=== PATIENT | male | born 1945 | race Caucasian/White ===

== ENCOUNTER 2016-08-04 15:23 | Emergency (ER) | payer MEDICARE ==
[~2016-08-04] VITALS: Ht 177.8 cm; Wt 90.0 kg
[~2016-08-04 15:23] MED LIST: ALBUAER3 INH; AMLO10TA2 PO; HYDR4TAB PO; LEVO100T5 PO; LISI10TA3 PO; OMEP20TA PO; SYMB80AE INH
[2016-08-04 15:28] VITALS: BP 218/91; PULSE 75; RESP 18; TEMP 98.3; O2SAT 100
[2016-08-04 15:30] VITALS: BP 218/91; PULSE 75; RESP 18; O2SAT 100
[2016-08-04] MEDS ORDERED: SODIUM CHLORIDE 0.9% FLUSH 5 ML FLUSH IVF PRN (15:45)
--- NOTE | 2016-08-04 15:52 | PD ---
HPI Chief Complaint: Chest Pain Time Seen by Provider: 15:31 Travel History International Travel<30 days: No Contact w/Intl Traveler<30days: No Traveled to known affect area: No History of Present Illness HPI This is a 70-year-old gentleman with history of coronary artery disease, prostate cancer, hyperlipidemia, who presents today with complaints of 2 day history of constant chest pain. The patient reports the pain as sharp and stabbing in his mid substernal area and upper abdominal area. He denies any nausea, vomiting, diaphoresis. Patient did state that he thought he had some discomfort in his left arm as well. Patient also reports that he had black stool earlier today. He denies any history of previous black stool. He does state that he had a peptic ulcer 30 years ago. Time he was unsure whether or not he had bleeding associated with it. There are no other complaints at the time of my examination. PFSH Past Medical History Hx Anticoagulant Therapy: Yes Arthritis: No Asthma: Yes Blood Disorders: No Anxiety: Yes Depression: No Heart Rhythm Problems: No Cancer: Yes (SKIN, PROSTATE AND BONE) Cardiac Catheterization: Yes Cardiovascular Problems: Yes High Cholesterol: Yes Chemotherapy: Yes Chest Pain: Yes Congestive Heart Failure: No COPD: No Cerebrovascular Accident: No Coronary Artery Disease: Yes Diabetes: No Diminished Hearing: No Endocrine: Yes Gastrointestinal Disorders: Yes GERD: Yes Genitourinary: No Headaches: Yes Hepatitis: No Hiatal Hernia: No Heparin Induced Thrombocytopen: No Hypertension: Yes Immune Disorder: No Implanted Vascular Access Dvce: No Musculoskeletal: Yes Neurologic: No Psychiatric: No Reproductive: No Respiratory: Yes Immunizations Current: Yes Myocardial Infarction: No Radiation Therapy: No Seizures: No Sickle Cell Disease: No Sleep Apnea: No Thyroid Disease: Yes Ulcer: Yes ?: Not Past Surgical History Abdominal Surgery: Yes (STENT - ABDOMEN 2013) AICD: No Cardiac Surgery: No (RT ENDARTERECTOMY 2005, cabg) Coronary Artery Bypass Graft: Yes ( X 4 2002 ) Ear Surgery: No Endocrine Surgery: No Eye Surgery: No Genitourinary Surgery: No Joint Replacement: No Neurologic Surgery: No Oral Surgery: No Pacemaker: No Thoracic Surgery: No Other Surgery: Yes (SPLEENECTOMY) Family History Family Myocardial Infarction: Yes (FATHER) Social History Alcohol Use: Yes (OCC BEER) Tobacco Use: No (QUIT 1989) Substance Use: No Allergies-Medications (Allergen,Severity, Reaction): Coded Allergies: Lipitor (Verified Allergy, Severe, rash, 05/17/16) Sulfa (Verified Allergy, Severe, Rash, 05/17/16) HIVES Aspirin (Verified Allergy, Unknown, 08/04/16) Prednisone (Verified Allergy, Unknown, 08/04/16) CRESTOR (Verified Adverse Reaction, Severe, 05/17/16) ABDOMINAL PAIN/MUSCLE ACHES Uncoded Allergies: IRENE (Adverse Reaction, Unknown, Swelling, 05/02/15) Pivastatin Cholesterol med - swelling in legs Reported Meds & Prescriptions Reported Meds & Active Scripts Active Reported Xtandi (Enzalutamide) 40 Mg Cap 40 Mg PO QID Prochlorperazine Maleate 10 Mg Tab 10 Mg PO Q6H PRN Zofran (Ondansetron HCl) 8 Mg Tab 8 Mg PO TID PRN Lasix (Furosemide) 20 Mg Tab 20 Mg PO DAILY PRN Symbicort Inh (Budesonide/Formoterol Fumarate) 160-4.5 Mcg/Act Aero 1 Puff INH Q12HR Amlodipine (Amlodipine Besylate) 5 Mg Tab 5 Mg PO DAILY Hydromorphone (Hydromorphone HCl) 4 Mg Tab 4-8 Mg PO Q3HR PRN Lisinopril 10 Mg Tab 10 Mg PO BID Omeprazole 20 Mg Tab 20 Mg PO DAILY PRN Levothyroxine (Levothyroxine Sodium) 100 Mcg Tab 100 Mcg PO DAILY Proair Hfa 8.5 GM Inh (Albuterol Sulfate) 90 Mcg/Act Aer 1 Puff INH Q4H PRN 108 mcg/actuation Review of Systems Except as stated in HPI: all other systems reviewed are Neg General / Constitutional: No: Fever, Chills HENT: No: Headaches, Lightheadedness Cardiovascular: Positive: Chest Pain or Discomfort (substernal 2 days), No: Palpitations, Irregular Rhythm Respiratory: No: Cough, Shortness of Breath Gastrointestinal: Positive: Abdominal Pain (epigastric), No: Nausea, Vomiting Musculoskeletal: Positive: Pain (anus left arm earlier.) Neurologic: No: Weakness, Headache Physical Exam Narrative GENERAL: Well-nourished, well-developed patient, in no acute respiratory distress. SKIN: Warm and dry. HEAD: Normocephalic/atraumatic. EYES: No scleral icterus. No injection or drainage. NECK: Supple, trachea midline. No JVD or lymphadenopathy. CARDIOVASCULAR: Regular rate and rhythm without murmurs, gallops, or rubs. RESPIRATORY: Breath sounds equal bilaterally. No accessory muscle use. GASTROINTESTINAL: Abdomen soft, non-tender, nondistended. She has no reproducible epigastric pain MUSCULOSKELETAL: No cyanosis, or edema. NEUROLOGICAL: Awake and alert. Cranial nerves II through XII intact. Motor grossly within normal limits. Five out of 5 muscle strength in all muscle groups. Normal speech. Data Data Last Documented VS Vital Signs Date Time Temp Pulse Resp B/P Pulse Ox O2 Delivery O2 Flow Rate FiO2 08/04/16 17:32 77 18 186/83 97 Room Air 08/04/16 15:28 98.3 Orders Electrocardiogram (08/04/16 15:44) Basic Metabolic Panel (Bmp) (08/04/16 15:44) Ckmb (Isoenzyme) Profile (08/04/16 15:44) Complete Blood Count With Diff (08/04/16 15:44) Magnesium (Mg) (08/04/16 15:44) Prothrombin Time / Inr (Pt) (08/04/16 15:44) Act Partial Throm Time (Ptt) (08/04/16 15:44) Troponin I (08/04/16 15:44) Chest, Single Ap (08/04/16 15:44) Ecg Monitoring (08/04/16 15:44) Bilateral Bp Monitoring (08/04/16 15:44) Iv Access Insert/Monitor (08/04/16 15:44) Oximetry (08/04/16 15:44) Oxygen Administration (08/04/16 15:44) Sodium Chloride 0.9% Flush (Ns Flush) (08/04/16 15:45) Al-Mag Hy-Si 40-40-4 Mg/Ml Liq (Mag-Al P (08/04/16 16:00) Lidocaine 2% Viscous (Xylocaine 2% Visco (08/04/16 16:00) Lipase (08/04/16 15:52) Morphine Inj (Morphine Inj) (08/04/16 17:30) Ondansetron Inj (Zofran Inj) (08/04/16 17:30) Diatrizoate Liq ( Gastroview Liq) (08/04/16 17:24) Oral Contrast - Adult (08/04/16 17:26) Amlodipine (Norvasc) (08/04/16 18:00) Lisinopril (Prinivil) (08/04/16 18:00) Ct Abd/Pel W Iv Contrast(Rout) (08/04/16 18:51) Iohexol 350 Inj (Omnipaque 350 Inj) (08/04/16 18:56) Labs Laboratory Tests Test 08/04/16 15:50 White Blood Count 8.7 TH/MM3 Red Blood Count 3.98 MIL/MM3 Hemoglobin 12.7 GM/DL Hematocrit 37.7 % Mean Corpuscular Volume 94.7 FL Mean Corpuscular Hemoglobin 31.9 PG Mean Corpuscular Hemoglobin 33.7 % Concent Red Cell Distribution Width 15.0 % Platelet Count 406 TH/MM3 Mean Platelet Volume 8.9 FL Neutrophils (%) (Auto) 53.0 % Lymphocytes (%) (Auto) 24.9 % Monocytes (%) (Auto) 14.2 % Eosinophils (%) (Auto) 6.8 % Basophils (%) (Auto) 1.1 % Neutrophils # (Auto) 4.6 TH/MM3 Lymphocytes # (Auto) 2.2 TH/MM3 Monocytes # (Auto) 1.2 TH/MM3 Eosinophils # (Auto) 0.6 TH/MM3 Basophils # (Auto) 0.1 TH/MM3 CBC Comment DIFF FINAL Differential Comment Prothrombin Time 10.4 SEC Prothromb Time International 0.9 RATIO Ratio Activated Partial 28.0 SEC Thromboplast Time Sodium Level 137 MEQ/L Potassium Level 3.8 MEQ/L Chloride Level 102 MEQ/L Carbon Dioxide Level 24.4 MEQ/L Anion Gap 11 MEQ/L Blood Urea Nitrogen 16 MG/DL Creatinine 1.09 MG/DL Estimat Glomerular Filtration 67 ML/MIN Rate Random Glucose 148 MG/DL Calcium Level 8.5 MG/DL Magnesium Level 2.0 MG/DL Total Creatine Kinase 77 U/L Troponin I LESS THAN 0.02 NG/ML Lipase 136 U/L MDM Medical Decision Making Medical Screen Exam Complete: Yes Emergency Medical Condition: Yes Medical Record Reviewed: Yes Differential Diagnosis ACS versus peptic ulcer versus pancreatitis Narrative Course 70-year-old gentleman with a history of 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 The patient denies any waxing waning. He reports the pain is constant. EKG and cardiac enzymes are within normal limits. Lipase is within normal limits. A CT scan was ordered given his history of prostate cancer to rule out any acute intra- abdominal pathology. CT scan is pending at this time. He will be signed out to Dr. Yesenia Dwyer, physician replacing this physician and disposition will be per her pending the CT report. I discussed this with both the patient and his and they're amenable to the plan and will wait the results of the CT scan from Dr. Dwyer. Diagnosis Primary Impression: Atypical chest pain Additional Impressions: Epigastric abdominal pain History of prostate cancer History of coronary artery disease Zachary Resendiz MD Aug 04, 2016 15:52
[2016-08-04] MEDS ORDERED: LIDOCAINE VISCOUS 2% SOLN 15 ML UDC SWISH-SWAL ONE (16:00)
[2016-08-04] MEDS ORDERED: ALUMINUM/MAGNESIUM/SIMETH 30 ML CUP PO ONE (16:00)
[2016-08-04] MEDS ORDERED: FURO1TAB62 PO (16:09)
[2016-08-04] MEDS ORDERED: PROC10TA PO (16:09)
[2016-08-04] MEDS ORDERED: ZOFR8TAB PO (16:09)
[2016-08-04] MEDS ORDERED: ENZA40CA PO (16:09)
[2016-08-04] MEDS ORDERED: AMLO5TAB2 PO (16:09)
[2016-08-04] MEDS ORDERED: SYMB160A INH (16:09)
[2016-08-04 16:22] VITALS: RESP 18; O2SAT 99
[2016-08-04 16:24] LABS: AUTOMATED NEUTROPHIL # 4.6 TH/MM3 (1.8-7.7); BASOPHIL # 0.1 TH/MM3 (0-0.2); BASOPHIL % 1.1 % (0.0-2.0); EOSINOPHIL # 0.6 TH/MM3 (0-0.4); EOSINOPHIL % 6.8 % (0.0-4.0); HEMATOCRIT 37.7 % (39.0-51.0); HEMO FLAGS DIFF FINAL; LYMPH % 24.9 % (9.0-44.0); LYMPHOCYTE # 2.2 TH/MM3 (1.0-4.8); MEAN CELL VOLUME 94.7 FL (80.0-100.0); MEAN CORPUSCULAR HEMOGLOBIN 31.9 PG (27.0-34.0); MEAN CORPUSCULAR HGB CONC 33.7 % (32.0-36.0); MONO % 14.2 % (0.0-8.0); PLATELET COUNT 406 TH/MM3 (150-450); RED BLOOD COUNT 3.98 MIL/MM3 (4.50-5.90); WHITE BLOOD COUNT 8.7 TH/MM3 (4.0-11.0)
[2016-08-04 16:36] LABS: INTERNATIONAL NORMALIZED RATIO 0.9 RATIO; PROTHROMBIN TIME - PATIENT 10.4 SEC (9.8-11.6)
--- NOTE | 2016-08-04 16:49 | RADRPT ---
EXAM DATE/TIME: 08/04/2016 15:53 [facility] COMPARISON: CHEST SINGLE AP, May 02, 2015, 18:49. INDICATIONS : Chest pain. MEDICAL HISTORY : Carcinoma, bone. Carcinoma, prostatic. SURGICAL HISTORY : CABG. Infusaport. ENCOUNTER: Initial ACUITY: 2 days PAIN SCORE: 9/10 LOCATION: lower chest FINDINGS: Trace left base atelectasis seen. No pleural effusion. No pneumothorax. Heart size stable, within normal limits. Patient has had previous CABG. Don't see any median sternoto my wires. There is a right internal jugular [id number] catheter with tip in the right atrium. CONCLUSION: Trace left base atelectasis. No other acute cardiopulmonary disease demonstrated. Jose Schwartz MD on August 04, 2016 at 16:46 Board Certified Radiologist. This report was verified electronically.
[2016-08-04 17:03] LABS: ANION GAP 11 MEQ/L (5-15); BICARBONATE 24.4 MEQ/L (21.0-32.0); BLOOD UREA NITROGEN 16 MG/DL (7-18); CHLORIDE 102 MEQ/L (98-107); GLOMERULAR FILTRATION RATE 67 ML/MIN (>89); POTASSIUM 3.8 MEQ/L (3.5-5.1); SODIUM (NA) 137 MEQ/L (136-145)
[2016-08-04 17:14] LABS: CREATINE KINASE 77 U/L (39-308)
[2016-08-04] MEDS ORDERED: DIATRIZOATE MEGLUM/DIATRIZOATE SOD 9 ML CUP ONE (17:24)
[2016-08-04] MEDS ORDERED: ONDANSETRON HCL 4 MG/2 ML VIAL IVP ONE (17:30)
[2016-08-04] MEDS ORDERED: MORPHINE SULFATE 4 MG/ML INJ IV ONE (17:30)
[2016-08-04 17:32] VITALS: BP_SYST 186; BP_SYST 190; BP_DIAS 83; BP_DIAS 87; PULSE 77; PULSE 82; RESP 18; O2SAT 97
[2016-08-04] MEDS ORDERED: amLODIPine BESYLATE 5 MG TAB PO ONE (18:00)
[2016-08-04] MEDS ORDERED: LISINOPRIL 10 MG TAB PO ONE (18:00)
[2016-08-04] MEDS ORDERED: IOHEXOL 350 MG/ML 10 ML VIAL (for RAD DIAG) IV ONE (18:56)
--- NOTE | 2016-08-04 19:11 | RADRPT ---
EXAM DATE/TIME: 08/04/2016 18:51 [facility] COMPARISON: CT ABDOMEN W/O CONTRAST, May 02, 2015, 19:11. INDICATIONS : Epigastric pain today. IV CONTRAST: 82 cc Omnipaque 350 (iohexol) IV ORAL CONTRAST: Prescribed oral contrast ingested. RADIATION DOSE: 14.61 CTDIvol (mGy) MEDICAL HISTORY : Cardiovascular disease. Hypertension. Carcinoma, prostate.Bone cancer. SURGICAL HISTORY : None. ENCOUNTER: Initial ACUITY: 1 day PAIN SCALE: 5/10 LOCATION: chest Epigastric TECHNIQUE: Volumetric scanning of the abdomen and pelvis was performed. Using automated exposure control and ad justment of the mA and/or kV according to patient size, radiation dose was kept as low as reasonably achievable to obtain optimal diagnostic quality images. FINDINGS: LOWER LUNGS: The visualized lower lungs are clear. LIVER: Homogeneous density without lesion. There is no dilation of the biliary tree. No calcified gallston es. SPLEEN: Splenectomy with some minimal residual splenic tissue.. PANCREAS: Within normal limits. KIDNEYS: Normal in size and shape. There is no mass, stone or hydronephrosis. Small renal low densities. ADRENAL GLANDS: Within normal limits. VASCULAR: There is no aortic aneurysm. BOWEL/MESENTERY: The stomach, small bowel, and colon demonstrate no acute abnormality. There is no free intraperitone al air or fluid. ABDOMINAL WALL: Within normal limits. RETROPERITONEUM: There is no lymphadenopathy. BLADDER: No wall thickening or mass. REPRODUCTIVE: Within normal limits. INGUINAL: There is no lymphadenopathy or hernia On the right. Fat-containing left inguinal hernia. MUSCULOSKELETAL: Scattered bony sclerotic foci concerning for metastatic disease.. CONCLUSION: 1. Scattered bony sclerotic foci concerning for metastatic disease. 2. No calcified gallstones. 3. Splenectomy with minimal residual splenic tissue. 4. Bilateral renal low densities likely cysts. Manuel Aguirre MD on August 04, 2016 at 19:06 Board Certified Radiologist. This report was verified electronically.
--- NOTE | 2016-08-04 19:16 | PD ---
Physical Exam Date Seen by Provider: Aug 04, 2016 Time Seen by Provider: 19:14 Narrative Accepted in transfer of care from Dr. Resendiz GENERAL: Well-developed well-nourished male in no acute distress no respiratory distress SKIN: Warm and dry. HEAD: Normocephalic. EYES: No scleral icterus. No injection or drainage. NECK: Supple, trachea midline. No JVD or lymphadenopathy. CARDIOVASCULAR: Regular rate and rhythm without murmurs, gallops, or rubs. RESPIRATORY: Breath sounds equal bilaterally. No accessory muscle use. GASTROINTESTINAL: Abdomen soft, reproducible epigastric tenderness to palpation without guarding or rebound, nondistended. No palpable pulsatile mass. MUSCULOSKELETAL: No cyanosis, or edema. Bilateral radial and dorsalis pedis pulses 2+ to palpation BACK: Nontender without obvious deformity. No CVA tenderness. Data Data Last Documented VS Vital Signs Date Time Temp Pulse Resp B/P Pulse Ox O2 Delivery O2 Flow Rate FiO2 08/04/16 17:32 77 18 186/83 97 Room Air 08/04/16 15:28 98.3 Orders Electrocardiogram (08/04/16 15:44) Basic Metabolic Panel (Bmp) (08/04/16 15:44) Ckmb (Isoenzyme) Profile (08/04/16 15:44) Complete Blood Count With Diff (08/04/16 15:44) Magnesium (Mg) (08/04/16 15:44) Prothrombin Time / Inr (Pt) (08/04/16 15:44) Act Partial Throm Time (Ptt) (08/04/16 15:44) Troponin I (08/04/16 15:44) Chest, Single Ap (08/04/16 15:44) Ecg Monitoring (08/04/16 15:44) Bilateral Bp Monitoring (08/04/16 15:44) Iv Access Insert/Monitor (08/04/16 15:44) Oximetry (08/04/16 15:44) Oxygen Administration (08/04/16 15:44) Sodium Chloride 0.9% Flush (Ns Flush) (08/04/16 15:45) Al-Mag Hy-Si 40-40-4 Mg/Ml Liq (Mag-Al P (08/04/16 16:00) Lidocaine 2% Viscous (Xylocaine 2% Visco (08/04/16 16:00) Lipase (08/04/16 15:52) Morphine Inj (Morphine Inj) (08/04/16 17:30) Ondansetron Inj (Zofran Inj) (08/04/16 17:30) Diatrizoate Liq ( Gastroview Liq) (08/04/16 17:24) Oral Contrast - Adult (08/04/16 17:26) Amlodipine (Norvasc) (08/04/16 18:00) Lisinopril (Prinivil) (08/04/16 18:00) Ct Abd/Pel W Iv Contrast(Rout) (08/04/16 18:51) Iohexol 350 Inj (Omnipaque 350 Inj) (08/04/16 18:56) Sucralfate Liq (Carafate Liq) (08/04/16 19:45) Labs Laboratory Tests Test 08/04/16 15:50 White Blood Count 8.7 TH/MM3 Red Blood Count 3.98 MIL/MM3 Hemoglobin 12.7 GM/DL Hematocrit 37.7 % Mean Corpuscular Volume 94.7 FL Mean Corpuscular Hemoglobin 31.9 PG Mean Corpuscular Hemoglobin 33.7 % Concent Red Cell Distribution Width 15.0 % Platelet Count 406 TH/MM3 Mean Platelet Volume 8.9 FL Neutrophils (%) (Auto) 53.0 % Lymphocytes (%) (Auto) 24.9 % Monocytes (%) (Auto) 14.2 % Eosinophils (%) (Auto) 6.8 % Basophils (%) (Auto) 1.1 % Neutrophils # (Auto) 4.6 TH/MM3 Lymphocytes # (Auto) 2.2 TH/MM3 Monocytes # (Auto) 1.2 TH/MM3 Eosinophils # (Auto) 0.6 TH/MM3 Basophils # (Auto) 0.1 TH/MM3 CBC Comment DIFF FINAL Differential Comment Prothrombin Time 10.4 SEC Prothromb Time International 0.9 RATIO Ratio Activated Partial 28.0 SEC Thromboplast Time Sodium Level 137 MEQ/L Potassium Level 3.8 MEQ/L Chloride Level 102 MEQ/L Carbon Dioxide Level 24.4 MEQ/L Anion Gap 11 MEQ/L Blood Urea Nitrogen 16 MG/DL Creatinine 1.09 MG/DL Estimat Glomerular Filtration 67 ML/MIN Rate Random Glucose 148 MG/DL Calcium Level 8.5 MG/DL Magnesium Level 2.0 MG/DL Total Creatine Kinase 77 U/L Troponin I LESS THAN 0.02 NG/ML Lipase 136 U/L [facility] Medical Record Reviewed: Yes Supervised Visit with BABS: No Interpretation(s) CBC and chemistries found to be in normal range CK total 77, not elevated troponin I less than 0.02, not elevated EKG is sinus rhythm rate [address] elevation or injury pattern change noted comparison EKG from 2015 is essentially unchanged; CT abdomen and pelvis reveals no acute abnormality to explain epigastric pain evidence of bony changes consistent with metastatic disease patient is noted to have prostate cancer with bony metastases. CT abd/pel: CONCLUSION: 1. Scattered bony sclerotic foci concerning for metastatic disease. 2. No calcified gallstones. 3. Splenectomy with minimal residual splenic tissue. 4. Bilateral renal low densities likely cysts. Manuel Aguirre MD on August 04, 2016 at 19:06 Board Certified Radiologist. This report was verified electronically. Differential Diagnosis Please refer to Dr. Resendiz's dictation Narrative Course Accepted in transfer of care from Dr. Resendiz for follow-up of pending CT and patient disposition; CT abdomen and pelvis for patient with reproducible epigastric tenderness concern for possible peptic ulcer disease. At 7:30 PM patient up out of bed walking back and forth to bathroom in no apparent distress without reproducible symptoms or complaints. Patient awaiting CT results. At 7:45 PM patient was spouse at bedside and patient's nurse at bedside discussed in detail EKG lab results physical exam and CT findings. Patient offered observation stay for chest pain center protocol to obtain serial cardiac enzymes EKGs and possible stress test if indicated for complaint of chest pain and further evaluation of chest pain complaint. Patient with known cardiac disease. Previous CABG. First set of cardiac enzymes after 2 days of constant pain within normal range and EKG shows no injury pattern or ischemia. Patient's abdomen dose identify reproducible epigastric tenderness to palpation which is also the pain of presentation. Patient administered Carafate 1 g suspension. Patient has been offered observation stay and is aware of benefit of observation stay as well as risk of being discharged to home with awareness that will require close follow-up with his light industrial supervisor and his blue line trimmer for further evaluation of epigastric and chest pain. Patient reports that he does not want to stay and wants to be discharged to home ; reports his symptoms are epigastric and aware may need further evaluation beyond follow up with his blue line trimmer. Patient is very anxious to be followed up by his blue line trimmer. Patient will be discharged to home with recommendation to return should he have any recurrence of symptoms and to follow -up as planned with his specialist. Diagnosis Primary Impression: Epigastric abdominal pain Additional Impressions: Atypical chest pain Prostate CA Referrals: Extract Mixer call for appointment [facility] 1 day as scheduled Primary Care Physician 1 day Patient Instructions: General Instructions Additional Instruction: Continue current medications as per the prescribed Add Carafate to current medication regimen Follow-up with your primary care provider call office in a.m. follow-up with your blue line trimmer as scheduled and follow up with her light industrial supervisor call office to schedule follow-up appointment Return to the emergency department for any concerns or change in condition or recurrence of symptoms Med/Other Pt SpecificInfo: Prescription(s) given Scripts Sucralfate Liq (Carafate Liq)1 Gm/10 Ml Susp1 Gm PO QID 10 Days Ref 0 on empty stomach Prov:Yesenia Dwyer MD 08/04/16 Disposition: DISCHARGE HOME Condition: Stable Yesenia Dwyer MD Aug 04, 2016 19:16
[2016-08-04] MEDS ORDERED: SUCRALFATE 1 GM/10 ML CUP PO ONE (19:45)
[2016-08-04] MEDS ORDERED: CARA1SUS3 PO (19:53)
--- NOTE | 2016-08-05 13:33 | EKG ---
Date Performed: 08/04/2016 Time Performed: 15:30:32 PTAGE: 70 years EKG: Sinus rhythm NONSPECIFIC T-WAVE ABNORMALITY BORDERLINE ECG Compared to PREVIOUS TRACING , ST changes have improved. PREVIOUS TRACIN05/02/2015 17.11 DOCTOR: Eugenio Andres Interpretating Date/Time 08/05/2016 13:31:55
== END 2016-08-04 21:38 | disposition home or self-care (01) ==
LOC: NEPC 15:23
DX: R07.89 Other chest pain (principal); R10.13 Epigastric pain; C61 Malignant neoplasm of prostate; R19.5 Other fecal abnormalities; E78.5 Hyperlipidemia, unspecified; R94.31 Abnormal electrocardiogram [ECG] [EKG]; I10 Essential (primary) hypertension; E07.9 Disorder of thyroid, unspecified; Z79.01 Long term (current) use of anticoagulants; Z86.79 Personal history of other diseases of the circulatory system; Z87.09 Personal history of other diseases of the respiratory system; Z87.19 Personal history of other diseases of the digestive system; Z87.39 Personal history of other diseases of the musculoskeletal system and connective tissue; Z87.891 Personal history of nicotine dependence
CPT/HCPCS: 71010; 74177; 80048; 82550; 83690; 83735; 84484; 85025; 85610; 85730; 93005; 96374; 96375; 99285; J2270; J2405; Q9963; Q9967

== ENCOUNTER 2016-11-01 17:24 | Emergency (ER) | payer MEDICARE ==
[~2016-11-01 17:24] MED LIST changes: -AMLO10TA2 PO; +AMLO5TAB2 PO; +CARA1SUS3 PO; +ENZA40CA PO; +FURO1TAB62 PO; +PROC10TA PO; +SYMB160A INH; -SYMB80AE INH; +ZOFR8TAB PO
[2016-11-01 17:43] VITALS: BP 213/96; PULSE 85; RESP 16; TEMP 98.2; O2SAT 98
[2016-11-01] MEDS ORDERED: HYDROmorphone HCL PF 1 MG/ML VIAL IV PUSH ONE ×2 (17:45→18:45)
[2016-11-01] MEDS ORDERED: ONDANSETRON HCL 4 MG/2 ML VIAL IV PUSH ONE (17:45)
--- NOTE | 2016-11-01 17:45 | PD ---
HPI Chief Complaint: Chest Pain Time Seen by Provider: 17:39 Travel History International Travel<30 days: No Contact w/Intl Traveler<30days: No Traveled to known affect area: No History of Present Illness HPI This 71-year-old male is complaining of left-sided chest pain. He says the pain started yesterday while he was laying on the couch watching TV. The pain is not pleuritic. It has been fairly constant. It is primarily in the left anterior chest. He has had some heartburn. He has a history of coronary artery disease. He had bypass surgery done in 2001. He also had a carotid endarterectomy done a few years later. He has a history of stage IV prostate cancer. He received chemotherapy and apparently has extensive disease throughout the spine. He says the chest pain is having is at a level of 9 at this time. It is not pleuritic or aggravated by movement. He is not short of breath. PFSH Past Medical History Hx Anticoagulant Therapy: Yes Arthritis: No Asthma: Yes Blood Disorders: No Anxiety: Yes Depression: No Heart Rhythm Problems: No Cancer: Yes (SKIN, PROSTATE AND BONE) Cardiac Catheterization: Yes Cardiovascular Problems: Yes High Cholesterol: Yes Chemotherapy: Yes Chest Pain: Yes Congestive Heart Failure: No COPD: No Cerebrovascular Accident: No Coronary Artery Disease: Yes Diabetes: No Diminished Hearing: No Endocrine: Yes Gastrointestinal Disorders: Yes GERD: Yes Genitourinary: No Headaches: Yes Hepatitis: No Hiatal Hernia: No Heparin Induced Thrombocytopen: No Hypertension: Yes Immune Disorder: No Implanted Vascular Access Dvce: No Musculoskeletal: Yes Neurologic: No Psychiatric: No Reproductive: No Respiratory: Yes Immunizations Current: Yes Myocardial Infarction: No Radiation Therapy: No Seizures: No Sickle Cell Disease: No Sleep Apnea: No Thyroid Disease: Yes Ulcer: Yes Past Surgical History Abdominal Surgery: Yes (STENT - ABDOMEN 2013) AICD: No Cardiac Surgery: No (RT ENDARTERECTOMY 2005, cabg) Coronary Artery Bypass Graft: Yes ( X 4 2002 ) Ear Surgery: No Endocrine Surgery: No Eye Surgery: No Genitourinary Surgery: No Joint Replacement: No Neurologic Surgery: No Oral Surgery: No Pacemaker: No Thoracic Surgery: No Other Surgery: Yes (SPLEENECTOMY) Social History Alcohol Use: Yes (OCC BEER) Tobacco Use: No (QUIT 1989) Substance Use: No Allergies-Medications (Allergen,Severity, Reaction): Coded Allergies: Lipitor (Verified Allergy, Severe, rash, 05/17/16) Sulfa (Verified Allergy, Severe, Rash, 05/17/16) HIVES Aspirin (Verified Allergy, Unknown, 08/04/16) Prednisone (Verified Allergy, Unknown, 08/04/16) CRESTOR (Verified Adverse Reaction, Severe, 05/17/16) ABDOMINAL PAIN/MUSCLE ACHES Uncoded Allergies: IRENE (Adverse Reaction, Unknown, Swelling, 05/02/15) Pivastatin Cholesterol med - swelling in legs Reported Meds & Prescriptions Reported Meds & Active Scripts Active Reported Xtandi (Enzalutamide) 40 Mg Cap 160 Mg PO DAILY Hydromorphone (Hydromorphone HCl) 8 Mg Tab 8 Mg PO Q3HR PRN Prochlorperazine Maleate 10 Mg Tab 10 Mg PO Q6H PRN Zofran (Ondansetron HCl) 8 Mg Tab 8 Mg PO TID PRN Lasix (Furosemide) 20 Mg Tab 20 Mg PO DAILY PRN Symbicort Inh (Budesonide/Formoterol Fumarate) 160-4.5 Mcg/Act Aero 1 Puff INH Q12HR Amlodipine (Amlodipine Besylate) 5 Mg Tab 5 Mg PO DAILY Lisinopril 10 Mg Tab 10 Mg PO BID Omeprazole 20 Mg Tab 20 Mg PO DAILY PRN Levothyroxine (Levothyroxine Sodium) 100 Mcg Tab 100 Mcg PO DAILY Proair Hfa 8.5 GM Inh (Albuterol Sulfate) 90 Mcg/Act Aer 1 Puff INH Q4H PRN 108 mcg/actuation Review of Systems General / Constitutional: No: Fever, Chills Eyes: No: Diploplia, Blurred Vision HENT: No: Headaches, Vertigo Cardiovascular: Positive: Chest Pain or Discomfort, No: Palpitations Respiratory: No: Cough, Shortness of Breath Gastrointestinal: No: Nausea, Vomiting Genitourinary: No: Urgency, Frequency Musculoskeletal: No: Myalgias, Arthralgias Skin: No Rash, No Itching Neurologic: No: Focal Abnormalities Endocrine: No: Heat Intolerance, Cold Intolerance Hematologic/Lymphatic: No: Easy Bruising Physical Exam Narrative GENERAL: Well-developed male SKIN: Focused skin assessment warm/dry. HEAD: Atraumatic. Normocephalic. EYES: Pupils equal and round. No scleral icterus. No injection or drainage. ENT: No nasal bleeding or discharge. Mucous membranes pink and moist. NECK: Trachea midline. No JVD. CARDIOVASCULAR: Regular rate and rhythm. No murmur appreciated. He has some mild left-sided precordial tenderness RESPIRATORY: No accessory muscle use. Clear to auscultation. Breath sounds equal bilaterally. GASTROINTESTINAL: Abdomen soft, non-tender, nondistended. Hepatic and splenic margins not palpable. MUSCULOSKELETAL: No obvious deformities. No clubbing. No cyanosis. No edema. NEUROLOGICAL: Awake and alert. No obvious cranial nerve deficits. Motor grossly within normal limits. Normal speech. PSYCHIATRIC: Appropriate mood and affect; insight and judgment normal. Data Data Last Documented VS Vital Signs Date Time Temp Pulse Resp B/P Pulse Ox O2 Delivery O2 Flow Rate FiO2 11/01/16 18:58 80 16 142/73 92 Room Air 11/01/16 17:43 98.2 Orders Electrocardiogram (11/01/16 17:39) Complete Blood Count With Diff (11/01/16 17:39) Comprehensive Metabolic Panel (11/01/16 17:39) Troponin I (11/01/16 17:39) Prothrombin Time / Inr (Pt) (11/01/16 17:39) Act Partial Throm Time (Ptt) (11/01/16 17:39) Urinalysis - C+S If Indicated (11/01/16 17:39) Magnesium (Mg) (11/01/16 17:39) Chest, Single Ap (11/01/16 17:39) Hydromorphone Pf Inj (Dilaudid Pf Inj) (11/01/16 17:45) Ondansetron Inj (Zofran Inj) (11/01/16 17:45) Hydromorphone Pf Inj (Dilaudid Pf Inj) (11/01/16 18:45) Labs Laboratory Tests Test 11/01/16 11/01/16 18:09 18:27 White Blood Count 8.5 TH/MM3 Red Blood Count 4.16 MIL/MM3 Hemoglobin 12.7 GM/DL Hematocrit 38.5 % Mean Corpuscular Volume 92.5 FL Mean Corpuscular Hemoglobin 30.5 PG Mean Corpuscular Hemoglobin 32.9 % Concent Red Cell Distribution Width 14.3 % Platelet Count 616 TH/MM3 Mean Platelet Volume 8.0 FL CBC Comment AUTO DIFF Differential Total Cells 100 Counted Neutrophils % (Manual) 35 % Lymphocytes % 46 % Monocytes % 16 % Eosinophils % 1 % Basophils % 2 % Neutrophils # (Manual) 3.0 TH/MM3 Differential Comment FINAL DIFF MANUAL Platelet Estimate HIGH Platelet Morphology Comment NORMAL Prothrombin Time 10.7 SEC Prothromb Time International 1.0 RATIO Ratio Activated Partial 29.2 SEC Thromboplast Time Sodium Level 136 MEQ/L Potassium Level 3.7 MEQ/L Chloride Level 100 MEQ/L Carbon Dioxide Level 26.1 MEQ/L Anion Gap 10 MEQ/L Blood Urea Nitrogen 12 MG/DL Creatinine 0.80 MG/DL Estimat Glomerular Filtration 96 ML/MIN Rate Random Glucose 110 MG/DL Calcium Level 9.2 MG/DL Magnesium Level 2.0 MG/DL Total Bilirubin 0.4 MG/DL Aspartate Amino Transf 14 U/L (AST/SGOT) Alanine Aminotransferase 14 U/L (ALT/SGPT) Alkaline Phosphatase 53 U/L Troponin I LESS THAN 0.02 NG/ML Total Protein 7.4 GM/DL Albumin 3.5 GM/DL Urine Color YELLOW Urine Turbidity CLEAR Urine pH 6.0 Urine Specific [place] 1.021 Urine Protein NEG mg/dL Urine Glucose (UA) NEG mg/dL Urine Ketones NEG mg/dL Urine Occult Blood NEG Urine Nitrite NEG Urine Bilirubin NEG Urine Leukocyte Esterase SMALL Urine RBC 0-3 /hpf Urine WBC 0-2 /hpf Urine Squamous Epithelial 0-5 /hpf Cells Urine Mucus FEW /lpf Microscopic Urinalysis Comment CULT NOT INDICATED MDM Medical Decision Making Medical Screen Exam Complete: Yes Emergency Medical Condition: Yes Medical Record Reviewed: Yes Differential Diagnosis Differential includes metastatic prostate cancer, coronary artery disease, atypical chest pain Narrative Course EKG shows normal sinus rhythm. His troponin is normal. Patient is having significant pain and has been given some Dilaudid. He takes 8 mg of Dilaudid at home. He is known to have widely metastatic disease. I offered chest pain admission to this patient. He doesn't declines at this time and wishes to go home. He says he'll follow-up with Dr. Mohamud. He has been having significant pain for a couple of days with normal studies which makes it more likely that it is coronary artery disease though I have advised him that we have not excluded entirely. Diagnosis Primary Impression: Atypical chest pain Disposition: DISCHARGE HOME Condition: Stable Slava Lujan MD Nov 01, 2016 17:45
[2016-11-01] MEDS ORDERED: ENZA40CA PO (17:53)
[2016-11-01] MEDS ORDERED: HYDR8TAB PO (17:53)
--- NOTE | 2016-11-01 17:59 | RADHPO ---
EXAM DATE/TIME: 11/01/2016 17:46 [facility] COMPARISON: No previous studies available for comparison. INDICATIONS : Chest pain. MEDICAL HISTORY : Hypertension. Carcinoma, prostatic. SURGICAL HISTORY : CABG. Infusaport. ENCOUNTER: Initial ACUITY: 1 day PAIN SCORE: 4/10 LOCATION: Bilateral chest FINDINGS: Trace scarring seen left lung base. Lungs otherwise clear. No pleural effusion. No pneumothorax. Heart size stable, normal. Thoracic aorta is tortuous. Right internal jugular [id number] catheter again seen, tip in the right atrium. Scattered sclerotic foci seen of the visualized osseous structures, most conspicuous anteriorly of th e left second rib. CONCLUSION: No acute cardiopulmonary disease demonstrated. Osseous metastatic disease. Jose Schwartz MD on November 01, 2016 at 17:55 Board Certified Radiologist. This report was verified electronically.
[2016-11-01 18:41] LABS: BLOOD, URINE NEG (NEG); GLUCOSE,URINE NEG (NEG); KETONE, URINE NEG (NEG); NITRITE,URINE NEG (NEG)
[2016-11-01 18:50] LABS: URINE COLOR YELLOW (YELLW/STRAW)
[2016-11-01 18:51] LABS: MUCUS URINE FEW /lpf (OCC)
[2016-11-01 18:52] LABS: COMMENT (UR) CULT NOT INDICATED; CULTURE IF INDICATED CULT NOT INDICATED; RBC, URINE 0-3 /hpf (0-3); SQUAMOUS EPITHELIAL CELL URINE 0-5 /hpf (0-5); WBC, URINE 0-2 /hpf (0-5)
[2016-11-01 18:54] LABS: CHLORIDE 100 MEQ/L (98-107); POTASSIUM 3.7 MEQ/L (3.5-5.1); SODIUM (NA) 136 MEQ/L (136-145)
[2016-11-01 18:57] LABS: HEMATOCRIT 38.5 % (39.0-51.0); MEAN CELL VOLUME 92.5 FL (80.0-100.0); MEAN CORPUSCULAR HEMOGLOBIN 30.5 PG (27.0-34.0); MEAN CORPUSCULAR HGB CONC 32.9 % (32.0-36.0); PLATELET COUNT 616 TH/MM3 (150-450); RED BLOOD COUNT 4.16 MIL/MM3 (4.50-5.90); RED CELL DISTRIBUTION WIDTH 14.3 % (11.6-17.2); WHITE BLOOD COUNT 8.5 TH/MM3 (4.0-11.0)
[2016-11-01 18:58] VITALS: BP 142/73; PULSE 80; RESP 16; O2SAT 92
[2016-11-01 18:58] LABS: ANION GAP 10 MEQ/L (5-15); BICARBONATE 26.1 MEQ/L (21.0-32.0); BLOOD UREA NITROGEN 12 MG/DL (7-18)
[2016-11-01 19:01] LABS: ALT (GPT) 14 U/L (12-78); AST (GOT) 14 U/L (15-37); GLOMERULAR FILTRATION RATE 96 ML/MIN (>89)
[2016-11-01 19:03] LABS: TOTAL BILIRUBIN ADULT 0.4 MG/DL (0.2-1.0)
[2016-11-01 19:04] LABS: ALKALINE PHOSPHATASE 53 U/L (45-117)
[2016-11-01 19:18] LABS: APTT (PATIENT) 29.2 SEC (24.3-30.1); PROTHROMBIN TIME - PATIENT 10.7 SEC (9.8-11.6)
[2016-11-01 19:20] LABS: HEMO FLAGS AUTO DIFF
[2016-11-01 19:28] LABS: BASOPHILS 2 % (0-2); EOSINOPHILS 1 % (0-4); POLYS (SEG NEUTROPHILS) 35 % (16-70); WBC DIFF SAMPLE 100
[2016-11-01 19:29] LABS: PLATELET ESTIMATE SMEAR HIGH (NORMAL); PLATELET MORPHOLOGY NORMAL (NORMAL); SCAN/DIFF FINAL DIFF MANUAL
[2016-11-01 19:33] VITALS: RESP 16
--- NOTE | 2016-11-02 21:56 | EKG ---
Date Performed: 11/01/2016 Time Performed: 17:22:58 PTAGE: 71 years EKG: Sinus rhythm Since previous tracing, no significant change noted Normal ECG PREVIOUS TRACING : 08/04/2016 15.30 DOCTOR: Yasmine Mohamud Interpretating Date/Time 11/02/2016 21:53:55
== END 2016-11-01 19:57 | disposition home or self-care (01) ==
LOC: PHED 17:24
DX: R07.89 Other chest pain (principal); I25.10 Atherosclerotic heart disease of native coronary artery without angina pectoris; J45.909 Unspecified asthma, uncomplicated; E78.00 Pure hypercholesterolemia, unspecified; I10 Essential (primary) hypertension; K21.9 Gastro-esophageal reflux disease without esophagitis; E07.9 Disorder of thyroid, unspecified; Z79.01 Long term (current) use of anticoagulants; Z85.46 Personal history of malignant neoplasm of prostate
CPT/HCPCS: 71010; 80053; 81001; 83735; 84484; 85007; 85027; 85610; 85730; 93005; 96374; 96375; 99285; J1170; J1642; J2405

== ENCOUNTER 2016-11-15 23:08 | Observation (INO) | payer MEDICARE ==
[~2016-11-15] VITALS: Ht 177.8 cm; Wt 88.0 kg
[~2016-11-15 23:08] MED LIST changes: -CARA1SUS3 PO; -HYDR4TAB PO; +HYDR8TAB PO
[2016-11-15 23:11] VITALS: BP 212/93; PULSE 78; RESP 18; TEMP 98.6; O2SAT 98
[2016-11-15] MEDS: NITROGLYCERIN 0.4 MG SL 25 TABS/BTL SL SCH ×3 (23:30→23:40)
[2016-11-15] MEDS ORDERED: NITROGLYCERIN 2% OINT 1 GM PACKET TOP ONE (23:30)
[2016-11-15] MEDS ORDERED: SODIUM CHLORID 0.9% 500 ML INJ 500 ML IV ONE (23:30)
[2016-11-15] MEDS: SODIUM CHLORIDE 0.9% FLUSH 10 ML FLUSH IVF PRN (23:35)
--- NOTE | 2016-11-15 23:47 | PD ---
HPI Chief Complaint: Chest Pain Time Seen by Provider: 23:22 Travel History International Travel<30 days: No Contact w/Intl Traveler<30days: No Traveled to known affect area: No History of Present Illness HPI The patient is a 71 year old male who presents to the [facility] emergency department with a history of chest pain that began again at 5:30 PM today. The patient reports that the pain is a pinching sensation in the left side of his chest that radiates into the left arm. The patient reports that the pain is different from the pain that he felt week ago when he went into the [facility] emergency department. He reports that he does have a history of coronary artery disease, however he has not had a stress test or cardiac catheterization done in years. 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 Mohamud. He reports that he has undergone a four-vessel coronary artery bypass graft in 2002. The patient reports that he is not sure whether the pain is actually related to his heart at this time, or related to bone cancer metastasis from prostate cancer. The patient reports that he is currently on a by mouth medication for treatment of his prostate cancer. The patient reports that he has an allergy to aspirin. He reports that he was taken off of Plavix approximately a year ago. The patient's other recent history is, located by having cough, congestion, ear pressure. He was treated with a Z-Ferny which she completed as well as a Medrol Dosepak taper which he has 3 days left of the course. The patient reports that his cough and congestion have improved as well as his ear pressure. On review of systems, the patient denies any recent fevers, neck pain, shortness of breath , abdominal pain, vomiting, diarrhea, urinary symptoms, or neurologic symptoms. [facility] Past Medical History Narrative Medical The patient's past medical history is significant for prostate cancer with bony metastasis currently on chemotherapy, history of coronary artery disease, history of hyperlipidemia, hypertension, hypothyroid disorder, Hx Anticoagulant Therapy: Yes Arthritis: No Asthma: Yes Blood Disorders: No Anxiety: Yes Depression: No Heart Rhythm Problems: No Cancer: Yes (SKIN, PROSTATE AND BONE) Cardiac Catheterization: Yes Cardiovascular Problems: Yes High Cholesterol: Yes Chemotherapy: Yes Chest Pain: Yes Congestive Heart Failure: No COPD: No Cerebrovascular Accident: No Coronary Artery Disease: Yes Diabetes: No Diminished Hearing: No Endocrine: Yes Gastrointestinal Disorders: Yes GERD: Yes Genitourinary: No Headaches: Yes Hepatitis: No Hiatal Hernia: No Heparin Induced Thrombocytopen: No Hypertension: Yes Immune Disorder: No Implanted Vascular Access Dvce: No Musculoskeletal: Yes Neurologic: No Psychiatric: No Reproductive: No Respiratory: Yes Immunizations Current: Yes Myocardial Infarction: No Radiation Therapy: No Seizures: No Sickle Cell Disease: No Sleep Apnea: No Thyroid Disease: Yes Ulcer: Yes Tetanus Vaccination: Unknown Influenza Vaccination: Yes Past Surgical History Narrative Surgical The patient's past surgical history is significant for an aortic stent placement in 2013, history of coronary artery bypass grafting, history of a right carotid endarterectomy Abdominal Surgery: Yes (STENT - ABDOMEN 2013) AICD: No Coronary Artery Bypass Graft: Yes ( X 4 2002 ) Ear Surgery: No Endocrine Surgery: No Eye Surgery: No Genitourinary Surgery: No Joint Replacement: No Neurologic Surgery: No Oral Surgery: No Pacemaker: No Thoracic Surgery: No Other Surgery: Yes (SPLEENECTOMY) Family History Family Myocardial Infarction: Yes (FATHER) Social History Alcohol Use: Yes (OCC BEER) Tobacco Use: No (QUIT 1989) Substance Use: No Allergies-Medications (Allergen,Severity, Reaction): Coded Allergies: Lipitor (Verified Allergy, Severe, rash, 11/15/16) Sulfa (Verified Allergy, Severe, Rash, 11/15/16) HIVES Aspirin (Verified Allergy, Unknown, 11/15/16) Prednisone (Verified Allergy, Unknown, 11/15/16) CRESTOR (Verified Adverse Reaction, Severe, 11/15/16) ABDOMINAL PAIN/MUSCLE ACHES Uncoded Allergies: IRENE (Adverse Reaction, Unknown, Swelling, 05/02/15) Pivastatin Cholesterol med - swelling in legs Reported Meds & Prescriptions Reported Meds & Active Scripts Active Reported Xtandi (Enzalutamide) 40 Mg Cap 160 Mg PO DAILY Hydromorphone (Hydromorphone HCl) 8 Mg Tab 8 Mg PO Q3HR PRN Prochlorperazine Maleate 10 Mg Tab 10 Mg PO Q6H PRN Zofran (Ondansetron HCl) 8 Mg Tab 8 Mg PO TID PRN Lasix (Furosemide) 20 Mg Tab 20 Mg PO DAILY PRN Symbicort Inh (Budesonide/Formoterol Fumarate) 160-4.5 Mcg/Act Aero 1 Puff INH Q12HR Amlodipine (Amlodipine Besylate) 5 Mg Tab 5 Mg PO DAILY Lisinopril 10 Mg Tab 10 Mg PO BID Omeprazole 20 Mg Tab 20 Mg PO DAILY PRN Levothyroxine (Levothyroxine Sodium) 100 Mcg Tab 100 Mcg PO DAILY Proair Hfa 8.5 GM Inh (Albuterol Sulfate) 90 Mcg/Act Aer 1 Puff INH Q4H PRN 108 mcg/actuation Review of Systems Except as stated in HPI: all other systems reviewed are Neg General / Constitutional: No: Fever Eyes: No: Visual changes HENT: Positive: Congestion, Earache, No: Headaches Cardiovascular: Positive: Chest Pain or Discomfort, Dyspnea on exertion Respiratory: Positive: Cough, No: Shortness of Breath Gastrointestinal: No: Abdominal Pain Genitourinary: No: Dysuria Musculoskeletal: No: Pain Skin: No Rash Neurologic: No: Weakness Psychiatric: No: Depression Endocrine: No: Polydipsia Hematologic/Lymphatic: No: Easy Bruising Physical Exam Narrative General: The patient is a well-developed well-nourished male in no acute distress. Head and Neck exam: Head is normocephalic atraumatic. Eyes: EOMI, pupils are equal round and reactive to light. Nose: Midline septum with pink mucous membranes Mouth: Dentition unremarkable. Moist mucus membranes. Posterior oropharynx is not erythematous. No tonsillar hypertrophy. Uvula midline. Airway patent. Neck: No palpable lymphadenopathy. No nuchal rigidity. No thyromegaly. Cardiovascular: Regular rate and rhythm without murmurs, gallops, or rubs. No pulse deficit to the extremities and simultaneous auscultation and palpation of his radial artery. The patient has tenderness on palpation along the left side of the chest wall. No step-off or crepitus. No erythema or ecchymosis. No flail segment. Lungs: Clear to auscultation bilaterally. No wheezes, rhonchi, or rales. Abdomen: Soft, without tenderness to palpation in all 4 quadrants of the abdomen. No guarding, rebound, or rigidity. Normal bowel sounds are audible. No tenderness on palpation of McBurney's point. Negative Oconnell's sign. Extremities: No clubbing, cyanosis, or edema. 2+ pulses in all 4 extremities. No calf tenderness on palpation. Back: No costovertebral angle tenderness to palpation. Neurologic Exam: Grossly nonfocal. Skin Exam: No rash noted. Intact skin that is warm and dry. Data Data Last Documented VS Vital Signs Date Time Temp Pulse Resp B/P Pulse Ox O2 Delivery O2 Flow Rate FiO2 11/16/16 01:50 63 16 143/66 96 Room Air 11/15/16 23:11 98.6 Orders Electrocardiogram (11/15/16 23:27) B-Type Natriuretic Peptide (11/15/16:27) Ckmb (Isoenzyme) Profile (11/15/16:) Complete Blood Count With Diff (11/15/16:) Comprehensive Metabolic Panel (11/15/16:) D-Dimer (11/15/16:) Magnesium (Mg) (11/15/16:) Prothrombin Time / Inr (Pt) (11/15/16:) Act Partial Throm Time (Ptt) (11/15/16:) Troponin I (11/15/16:) Lipase (11/15/16:) Chest, Single Ap (11/15/16:) Ecg Monitoring (11/15/16:) Bilateral Bp Monitoring (11/15/16:) Iv Access Insert/Monitor (11/15/16:) Oximetry (11/15/16:) Oxygen Administration (11/15/16:) Nitroglycerin 2% Oint (Nitroglycerin 2% (11/15/16 23:30) Sodium Chloride 0.9% Flush (Ns Flush) (11/15/16 23:30) Nitroglycerin Sl (Nitrostat Sl) (11/15/16 23:30) Sodium Chlorid 0.9% 500 Ml Inj (Ns 500 M (11/15/16 23:30) Ondansetron Inj (Zofran Inj) (11/16/16 00:15) Hydromorphone Pf Inj (Dilaudid Pf Inj) (11/16/16 00:15) Hydromorphone Pf Inj (Dilaudid Pf Inj) (11/16/16 01:15) Ct Pulmonary Angiogram (11/16/16 01:14) Iohexol 350 Inj (Omnipaque 350 Inj) (11/16/16 01:36) Admit Order (Ed Use Only) (11/16/16 02:45) Labs Laboratory Tests Test 11/15/16 23:50 White Blood Count 9.1 TH/MM3 Red Blood Count 3.65 MIL/MM3 Hemoglobin 11.6 GM/DL Hematocrit 33.9 % Mean Corpuscular Volume 92.9 FL Mean Corpuscular Hemoglobin 31.7 PG Mean Corpuscular Hemoglobin 34.2 % Concent Red Cell Distribution Width 14.4 % Platelet Count 429 TH/MM3 Mean Platelet Volume 8.8 FL Neutrophils (%) (Auto) % Lymphocytes (%) (Auto) % Monocytes (%) (Auto) % Eosinophils (%) (Auto) % Basophils (%) (Auto) % Neutrophils # (Auto) TH/MM3 Lymphocytes # (Auto) TH/MM3 Monocytes # (Auto) TH/MM3 Eosinophils # (Auto) TH/MM3 Basophils # (Auto) TH/MM3 CBC Comment AUTO DIFF Differential Total Cells 100 Counted Neutrophils % (Manual) 52 % Lymphocytes % 30 % Monocytes % 5 % Eosinophils % 8 % Basophils % 2 % Neutrophils # (Manual) 5.0 TH/MM3 Metamyelocytes 3 % Differential Comment FINAL DIFF MANUAL Platelet Estimate HIGH Platelet Morphology Comment NORMAL Prothrombin Time 10.5 SEC Prothromb Time International 1.0 RATIO Ratio Activated Partial 25.4 SEC Thromboplast Time D-Dimer Quantitative (PE/DVT) 0.58 MG/L FEU Sodium Level 138 MEQ/L Potassium Level 3.6 MEQ/L Chloride Level 103 MEQ/L Carbon Dioxide Level 26.0 MEQ/L Anion Gap 9 MEQ/L Blood Urea Nitrogen 13 MG/DL Creatinine 0.85 MG/DL Estimat Glomerular Filtration 89 ML/MIN Rate Random Glucose 127 MG/DL Calcium Level 8.7 MG/DL Magnesium Level 1.9 MG/DL Total Bilirubin 0.7 MG/DL Aspartate Amino Transf 13 U/L (AST/SGOT) Alanine Aminotransferase 15 U/L (ALT/SGPT) Alkaline Phosphatase 42 U/L Total Creatine Kinase 77 U/L Troponin I LESS THAN 0.02 NG/ML B-Type Natriuretic Peptide 97 PG/ML Total Protein 7.2 GM/DL Albumin 3.6 GM/DL Lipase 113 U/L MDM Medical Decision Making Medical Screen Exam Complete: Yes Emergency Medical Condition: Yes Medical Record Reviewed: Yes Interpretation(s) Last Impressions CT Angiography 11/16/16 0114 Signed Impressions: Service Date/Time: Wednesday, November 16, 2016 01:31 - CONCLUSION: 1. No pulmonary embolus or other acute abnormality demonstrated. 2. Blastic prostate cancer metastatic bone disease not significantly changed. Jose Schwartz MD Chest X-Ray 11/15/16 0757 Signed Impressions: Service Date/Time: Tuesday, November 15, 2016 23:38 - CONCLUSION: Mild atelectasis and small effusion of the left lung base. Jose Schwartz MD Differential Diagnosis Chest wall pain related to bony metastasis, versus pulmonary embolism, versus acute coronary syndrome, versus costochondritis, versus musculoskeletal strain Narrative Course During the course of the patients emergency department visit, the patients history, examination, and differential diagnosis were reviewed with the patient. The patient had IV access obtained and blood work sent for analysis. The patient was placed on a cardiac nurse specialist with oximetry and blood pressure monitoring. An EKG was done on arrival. The patient was initially ordered nitroglycerin sublingual along with nitroglycerin 1 inch the chest wall. The patient refuses to take the nitroglycerin as he reports that it bottoms out his blood pressure. The patient 's systolic blood pressure on arrival is 180, however the patient refuses. The patient reports that dilated has helped in the past. The patient was given hydromorphone 1 mg IV, Zofran 4 mg IV. The patients laboratory studies were reviewed and remarkable for a white count of 9.1, hemoglobin 11.6, platelets 429 with a eosinophils. CMP is remarkable for glucose of 127, AST 13, alkaline phosphatase 42, CPK 77, troponin I less than 0.02, and BNP 97, lipase 113. PT PTT within normal limits, d-dimer 0.58. Radiology studies were reviewed and remarkable for a chest x-ray that shows mild atelectasis and a small effusion of the left lung base. CTA to rule out PE shows no pulmonary embolism or other acute abnormality identified. Blastic prostate cancer metastatic bone disease not significantly changed. As the patient has not had any stress testing done in recent years, the patient was agreeable with the plan to proceed with admission to the chest pain center for further evaluation and treatment. The patients results were discussed with the patient, including the plan of care. I explained that further testing and/ or monitoring is indicated based on the patients history, examination, and/ or laboratory findings. Therefore, I recommended admission for additional evaluation. The patient expressed understanding and was agreeable with this plan. The patient was admitted to the hospital in stable condition and sent to a bed under the care of the chest pain center. Diagnosis Primary Impression: Chest pain, rule out acute myocardial infarction Admitting Information Admitting Physician Requests: Chantel Kuhn MD Nov 15, 2016 23:47
[2016-11-16 00:03] VITALS: BP 189/82; PULSE 65; RESP 15; O2SAT 97
--- NOTE | 2016-11-16 00:05 | RADRPT ---
EXAM DATE/TIME: 11/15/2016 23:38 [facility] COMPARISON: No previous studies available for comparison. INDICATIONS : Chest pain. MEDICAL HISTORY : Hypertension. Carcinoma, prostatic. SURGICAL HISTORY : CABG. Infusaport. ENCOUNTER: Initial ACUITY: 1 day PAIN SCORE: 5/10 LOCATION: Bilateral chest FINDINGS: Mild atelectasis and small pleural effusion seen of the left lung base, both slightly worse. Right gary ng remains clear. No pneumothorax seen. Heart size stable, within normal limits. Patient has had previous coronary artery bypass graft operat ion. Right internal jugular central venous catheter with tip in the right atrium again noted. Faint patchy sclerosis again seen of the visualized osseous structures CONCLUSION: Mild atelectasis and small effusion of the left lung base. Jose Schwartz MD on November 16, 2016 at 0:01 Board Certified Radiologist. This report was verified electronically.
[2016-11-16] MEDS ORDERED: HYDROmorphone HCL PF 1 MG/ML VIAL IV PUSH ONE ×2 (00:15→01:15)
[2016-11-16] MEDS ORDERED: ONDANSETRON HCL 4 MG/2 ML VIAL IV ONE (00:15)
[2016-11-16 00:25] LABS: HEMATOCRIT 33.9 % (39.0-51.0); HEMO FLAGS AUTO DIFF; MEAN CELL VOLUME 92.9 FL (80.0-100.0); MEAN CORPUSCULAR HEMOGLOBIN 31.7 PG (27.0-34.0); MEAN CORPUSCULAR HGB CONC 34.2 % (32.0-36.0); PLATELET COUNT 429 TH/MM3 (150-450); RED BLOOD COUNT 3.65 MIL/MM3 (4.50-5.90); RED CELL DISTRIBUTION WIDTH 14.4 % (11.6-17.2); WHITE BLOOD COUNT 9.1 TH/MM3 (4.0-11.0)
[2016-11-16 00:36] LABS: APTT (PATIENT) 25.4 SEC (24.3-30.1); PROTHROMBIN TIME - PATIENT 10.5 SEC (9.8-11.6)
[2016-11-16 00:37] LABS: ALT (GPT) 15 U/L (12-78); ANION GAP 9 MEQ/L (5-15); AST (GOT) 13 U/L (15-37); BLOOD UREA NITROGEN 13 MG/DL (7-18); CHLORIDE 103 MEQ/L (98-107); GLOMERULAR FILTRATION RATE 89 ML/MIN (>89); MAGNESIUM 1.9 MG/DL (1.5-2.5); POTASSIUM 3.6 MEQ/L (3.5-5.1); SODIUM (NA) 138 MEQ/L (136-145)
[2016-11-16 00:41] LABS: ALKALINE PHOSPHATASE 42 U/L (45-117); TOTAL BILIRUBIN ADULT 0.7 MG/DL (0.2-1.0)
[2016-11-16 00:57] LABS: CREATINE KINASE 77 U/L (39-308)
[2016-11-16] MEDS: SODIUM CHLORIDE 0.9% FLUSH 10 ML FLUSH IVF PRN (01:14)
[2016-11-16 01:29] LABS: BASOPHILS 2 % (0-2); EOSINOPHILS 8 % (0-4); METAMYELOCYTES 3 % (0-1); POLYS (SEG NEUTROPHILS) 52 % (16-70); WBC DIFF SAMPLE 100
[2016-11-16 01:30] LABS: PLATELET ESTIMATE SMEAR HIGH (NORMAL); PLATELET MORPHOLOGY NORMAL (NORMAL)
[2016-11-16 01:31] LABS: SCAN/DIFF FINAL DIFF MANUAL
[2016-11-16] MEDS ORDERED: IOHEXOL 350 MG/ML 10 ML VIAL (for RAD DIAG) IV ONE (01:36)
[2016-11-16 01:50] VITALS: BP 143/66; PULSE 63; RESP 16; O2SAT 96
--- NOTE | 2016-11-16 01:55 | RADRPT ---
EXAM DATE/TIME: 11/16/2016 01:31 [facility] COMPARISON: CT ABDOMEN & PELVIS W CONTRAST, August 04, 2016, 18:51. CHEST SINGLE AP, November 15, 2016, 23:38. CT TH ORAX W/O CONTRAST, May 02, 2015, 19:11. INDICATIONS : Chest pain radiating down arms. IV CONTRAST: 50 cc Omnipaque 350 (iohexol) IV RADIATION DOSE: 11.70 CTDIvol (mGy) MEDICAL HISTORY : Hypertension. Gastroesophageal reflux disease. Carcinoma, bone.Prostate cancer. Skin cancer. SURGICAL HISTORY : CABG Splenectomy.Endarterectomy. ENCOUNTER: Initial ACUITY: 1 day PAIN SCALE: 9/10 LOCATION: chest TECHNIQUE: Volumetric scanning of the chest was performed using a pulmonary embolism protocol MIP images were re constructed. Using automated exposure control and adjustment of the mA and/or kV according to patien t size, radiation dose was kept as low as reasonably achievable to obtain optimal diagnostic quality images. FINDINGS: PULMONARY ARTERIES: No filling defects are seen in the pulmonary arteries through the segmental level. LUNGS: There is no consolidation or pneumothorax . No concerning pulmonary nodule is visualized. PLEURAE: There is no pleural thickening or pleural effusion. MEDIASTINUM: There is good visualization of the great vessels of the middle mediastinum. No evidence of mediastin al or hilar adenopathy/mass. Normal heart size. Patient has had previous coronary artery bypass graft operation. MUSCULOSKELETAL: Scattered sclerotic lesions of the visualized ribs and thoracic vertebral bodies measuring up to 13 m m are again noted and these appear similar. MISCELLANEOUS: The visualized upper abdominal organs demonstrate no acute abnormality. Patient has had previous sple nectomy and there is evidence of partial regeneration again noted. CONCLUSION: 1. No pulmonary embolus or other acute abnormality demonstrated. 2. Blastic prostate cancer metastatic bone disease not significantly changed. Jose Schwartz MD on November 16, 2016 at 1:47 Board Certified Radiologist. This report was verified electronically.
[2016-11-16] MEDS ORDERED: ONDANSETRON HCL 4 MG/2 ML VIAL IV PRN (04:00)
[2016-11-16] MEDS ORDERED: ACETAMINOPHEN 500 MG CPLT PO PRN (04:00)
[2016-11-16] MEDS ORDERED: SODIUM CHLORIDE 0.9% FLUSH 10 ML FLUSH IV FLUSH PRN (04:00)
[2016-11-16 04:58] VITALS: BP 140/65; PULSE 61; RESP 14; TEMP 97.7; O2SAT 96
[2016-11-16 05:00] VITALS: O2SAT 96
[2016-11-16 05:16] LABS: CREATINE KINASE 68 U/L (39-308)
[2016-11-16 07:44] LABS: CREATINE KINASE 64 U/L (39-308)
[2016-11-16 08:00] VITALS: PULSE 61
--- NOTE | 2016-11-16 08:00 | EKG ---
Date Performed: 11/15/2016 Time Performed: 23:44:02 PTAGE: 71 years EKG: Sinus rhythm NORMAL ECG Since previous tracing, no significant change noted NO PREVIOUS TRACING DOCTOR: Sandra Raza Interpretating Date/Time 11/16/2016 08:00:24
--- NOTE | 2016-11-16 08:01 | EKG ---
Date Performed: 11/16/2016 Time Performed: 06:41:13 PTAGE: 71 years EKG: SINUS BRADYCARDIA WITH SINUS ARRHYTHMIA BORDERLINE ECG Since PREVIOUS TRACING , no significant change noted PREVIOUS TRACIN11/16/2016 04.19 DOCTOR: Sandra Raza Interpretating Date/Time 11/16/2016 08:00:44
--- NOTE | 2016-11-16 08:01 | EKG ---
Date Performed: 11/16/2016 Time Performed: 04:19:57 PTAGE: 71 years EKG: SINUS BRADYCARDIA BORDERLINE ECG Since PREVIOUS TRACING , no significant change noted PREVIOUS TRACIN11/01/2016 17.22 DOCTOR: Sandra Raza Interpretating Date/Time 11/16/2016 08:00:33
[2016-11-16] MEDS ORDERED: NITROGLYCERIN 0.4 MG SL 25 TABS/BTL SL PRN (08:45)
[2016-11-16] MEDS ORDERED: NON-FORMULARY DRUG (Omeprazole 20 MG) PO PRN (08:45)
--- NOTE | 2016-11-16 08:46 | HHI.HP ---
HPI Primary Care Physician Kian Alonzo MD Chief Complaint Chest pain History of Present Illness 71-year-old male with medical history of coronary artery disease including CABG in 2002, right carotid endarterectomy, and prostate cancer with bone metastasis presents to emergency room for further evaluation of chest pain. Onset last evening approximately 5:30. Location substernal chest, radiating to left anterior chest, left shoulder, and left arm. Characterized as a pinching sensation. No associated symptoms. Breathing did not make pain better or worse. Movement of the neck and left arm may pain worse. Duration constant waxing and waning in intensity, currently pain 6/10. No known precipitating or relieving factors. Endorses he has recently been ill and currently on a Medrol Dosepak for a cold. Patient's pipe setter is Dr. Mohamud. Review of Systems General: No fatigue,weakness, fever, or chills. Recent illness recently completed a Z-Ferny and currently taking a Medrol Dosepak for congestion and cough. HEENT: No CEE. Current nasal congestion, improving. CV: As stated above. Current chest discomfort 11/06. Declined admission to [facility] 11/01/16, however states chest discomfort at that time different from current chest discomfort. Prior to CABG in reports cardiac symptoms included shortness of breath and substernal pounding. RESP: As stated above. Cough has improved. No shortness of breath, wheeze, hemoptysis. History of asthma GI: No nausea, vomiting, bowel changes. History of GERD. Seen and evaluated 11/01 [facility] for chest discomfort. Declined admission to [facility] at that time. Reports confidence chest discomfort related to GERD. No change in appetite, no unintentional weight gain or weight loss : No dysuria, urgency, frequency EXT: No lower leg edema, no paraesthesias MS: As stated above. Left anterior chest and shoulder pain reproduced with movement of neck and left arm as well as palpation. Endorses current sign metastasis from prostate cancer. Has undergone chemotherapy for 3 years with a recent change from chemotherapy to Xtandi oral therapy. Endorses concern pain may be related to spinal metastasis and change from chemotherapy to oral therapy. NEURO: No difficulty with balance, LOC, motor/sensory deficits PSYCH: No anxiety, depression SKIN: No rashes, no concerning lesions Past Family Social History Allergies: Coded Allergies: Lipitor (Verified Allergy, Severe, rash, 11/15/16) Sulfa (Verified Allergy, Severe, Rash, 11/15/16) HIVES Aspirin (Verified Allergy, Unknown, 11/15/16) Prednisone (Verified Allergy, Unknown, 11/15/16) CRESTOR (Verified Adverse Reaction, Severe, 11/15/16) ABDOMINAL PAIN/MUSCLE ACHES Uncoded Allergies: IRENE (Adverse Reaction, Unknown, Swelling, 05/02/15) Pivastatin Cholesterol med - swelling in legs Past Medical History CAD, asthma, GERD, hypothyroidism, prostate cancer stage IV with bone metastases and spine Past Surgical History CABG-2002, right CEA-2005, splenectomy, aorta abdominal stent-2013 Reported Medications Active Reported Xtandi (Enzalutamide) 40 Mg Cap 160 Mg PO DAILY Hydromorphone (Hydromorphone HCl) 8 Mg Tab 8 Mg PO Q3HR PRN Symbicort Inh (Budesonide/Formoterol Fumarate) 160-4.5 Mcg/Act Aero 1 Puff INH Q12HR Amlodipine (Amlodipine Besylate) 5 Mg Tab 5 Mg PO DAILY Lisinopril 10 Mg Tab 10 Mg PO BID Omeprazole 20 Mg Tab 20 Mg PO DAILY PRN Levothyroxine (Levothyroxine Sodium) 100 Mcg Tab 100 Mcg PO DAILY Proair Hfa 8.5 GM Inh (Albuterol Sulfate) 90 Mcg/Act Aer 1 Puff INH Q4H PRN 108 mcg/actuation Medrol dose pack- reports 3 days left in dose pack Active Ordered Medications Current Medications Medications (Trade) Dose Ordered Sig/Naheed Route Start Time Stop Time Status Last Admin (Tylenol) 500 mg Q4H PRN PO 11/16/16 04:00 11/16/16 06:47 (Zofran Inj) 4 mg Q6H PRN IV 11/16/16 04:00 (Protonix) 40 mg DAILY PO 11/16/16 09:00 11/16/16 07:26 Social History Known coronary artery disease, hypertension. No known diabetes. No tobacco use. Denies any alcohol or illegal drug use. Endorses an active lifestyle. All follow-up appointments with cardiology, primary physician and oncologist. Past cardiac testing Follows with Dr. Mohamud are seen him last month. No recent stress testing. Reports he is unable to complete a chemical or exercise stress testing. 2009 cardiac catheterization Physical Exam Vital Signs Vital Signs Date Time Temp Pulse Resp B/P Pulse Ox O2 Delivery O2 Flow Rate FiO2 11/16/16 08:00 61 11/16/16 05:00 96 11/16/16 04:58 97.7 61 14 140/65 96 11/16/16 04:15 100 Room Air 11/16/16 01:50 63 16 143/66 96 Room Air 11/16/16 00:03 65 15 189/82 97 Room Air 11/15/16 23:14 16 11/15/16 23:11 98.6 78 18 212/93 98 Physical Exam GENERAL: Alert WN, WD, NAD, pleasant, male HEAD: NC, AT EYES: Sclera clear, conjunctiva without injection, pupils equal and round ENT: Mucous membranes pink and moist NECK: Supple, no masses, trachea midline CV: RRR, 2/6 systolic murmur. No rub, gallop, JVD. S1-S2 no S3-S4. No carotid bruits. RESP: Clear lungs throughout bilateral, no crackles, wheeze, rhonchi, symmetrical chest rise, nonlabored, able to speak in full sentences ABD: Soft, NT, ND, no masses, positive bowel tones EXT: Pulses +24, no dependent edema MS: Normal tone 4 extremities, left anterior chest left shoulder tender with palpation. no obvious deformities, full range of motion NEURO: CN II through CN XII grossly intact, motor strength 5/5, gait WNL PSYCH: A+O 3, pleasant affect, appropriate speech, appropriate mood and affect , insight and judgment SKIN: Normal turgor, normal texture, no lesions, no rashes, brisk cap refill, even hair distribution Laboratory Laboratory Tests Test 11/15/16 11/16/16 11/16/16 23:50 04:20 06:44 White Blood Count 9.1 Red Blood Count 3.65 Hemoglobin 11.6 Hematocrit 33.9 Mean Corpuscular Volume 92.9 Mean Corpuscular Hemoglobin 31.7 Mean Corpuscular Hemoglobin 34.2 Concent Red Cell Distribution Width 14.4 Platelet Count 429 Mean Platelet Volume 8.8 Neutrophils (%) (Auto) Lymphocytes (%) (Auto) Monocytes (%) (Auto) Eosinophils (%) (Auto) Basophils (%) (Auto) Neutrophils # (Auto) Lymphocytes # (Auto) Monocytes # (Auto) Eosinophils # (Auto) Basophils # (Auto) CBC Comment AUTO DIFF Differential Total Cells 100 Counted Neutrophils % (Manual) 52 Lymphocytes % 30 Monocytes % 5 Eosinophils % 8 Basophils % 2 Neutrophils # (Manual) 5.0 Metamyelocytes 3 Differential Comment FINAL DIFF MANUAL Platelet Estimate HIGH Platelet Morphology Comment NORMAL Prothrombin Time 10.5 Prothromb Time International 1.0 Ratio Activated Partial 25.4 Thromboplast Time D-Dimer Quantitative (PE/DVT) 0.58 Sodium Level 138 Potassium Level 3.6 Chloride Level 103 Carbon Dioxide Level 26.0 Anion Gap 9 Blood Urea Nitrogen 13 Creatinine 0.85 Estimat Glomerular Filtration 89 Rate Random Glucose 127 Calcium Level 8.7 Magnesium Level 1.9 Total Bilirubin 0.7 Aspartate Amino Transf 13 (AST/SGOT) Alanine Aminotransferase 15 (ALT/SGPT) Alkaline Phosphatase 42 Total Creatine Kinase 77 68 64 Troponin I LESS THAN 0.02 LESS THAN 0.02 LESS THAN 0.02 B-Type Natriuretic Peptide 97 Total Protein 7.2 Albumin 3.6 Lipase 113 Result Diagram: 11/15/16234911/15/162349 Imaging Last Impressions CT Angiography 11/16/16 0114 Signed Impressions: Service Date/Time: Wednesday, November 16, 2016 01:31 - CONCLUSION: 1. No pulmonary embolus or other acute abnormality demonstrated. 2. Blastic prostate cancer metastatic bone disease not significantly changed. Jose Schwartz MD Chest X-Ray 11/15/162 Signed Impressions: Service Date/Time: Tuesday, November 15, 2016 23:38 - CONCLUSION: Mild atelectasis and small effusion of the left lung base. Jose Schwartz MD Course EKG Normal sinus rhythm, normal axis, no ST or T-segment changes Assessment and Plan Assessment and Plan #1 Chest painadmitted to chest pain center. Ruled out with 3 sets of EKGs, cardiac enzymes, and monitored throughout evening. Seen and evaluated by Dr. Sandra Raza. Plan to discharge patient with follow-up with Dr. Mohamud. Chest discomfort most likely musculoskeletal. Spoke with Dr. Oneida Isidro biological technical officer, appointment scheduled for Tuesday. #2 Musculoskeletal painfollow with PCP as well as oncologist with concern pain may be related to spine metastasis by stopping chemotherapy and changing to oral therapy. Patient allergic to aspirin states he does not tolerate NSAIDs therefore encouraged use of [id number] Tylenol and may use warm heat to affected area. #3 Coronary artery diseasecontinue lisinopril, amlodipine #4 Hypothyroidismcontinue levothyroxine #5 Asthmacontinue Symbicort and pro-air home-going No changes to home medication regimen, continue Medrol dose ferny as previously ordered. Lilo Jain Nov 16, 2016 08:46
[2016-11-16] MEDS ORDERED: amLODIPine BESYLATE 5 MG TAB PO SCH (09:00)
[2016-11-16] MEDS ORDERED: SODIUM CHLORIDE 0.9% FLUSH 10 ML FLUSH IV FLUSH SCH (09:00)
[2016-11-16] MEDS ORDERED: PANTOPRAZOLE SOD 40 MG DELAYED RELEASE TAB PO SCH (09:00)
[2016-11-16] MEDS ORDERED: LISINOPRIL 10 MG TAB PO SCH (09:00)
[2016-11-16] MEDS ORDERED: LEVOTHYROXINE SODIUM 100 MCG TAB PO SCH (09:00)
--- NOTE | 2016-11-16 09:57 | HHI.DCPOC ---
Discharge Care Plan Diagnosis: (1) Musculoskeletal chest pain (2) Hx of coronary artery disease (3) Bone metastasis (4) Prostate CA Goals to Promote Your Health * To prevent worsening of your condition and complications * To maintain your health at the optimal level Directions to Meet Your Goals Take your medications as prescribed Follow your dietary instruction Follow activity as directed Keep your appointments as scheduled Take your immunizations and boosters as scheduled If your symptoms worsen call your PCP, if no PCP go to Urgent Care Center or Emergency Room Smoking is Dangerous to Your Health. Avoid second hand smoke Call the 24-hour hour crisis hotline for domestic abuse at Lilo Jain Nov 16, 2016 09:57
== END 2016-11-16 10:33 | disposition home or self-care (01) ==
LOC: NEPC 23:08 → NEDA 11-16 02:47 → NEPGCP 11-16 04:30
PROVIDERS: ADMIT Internal Medicine Cardiovascular Disease; ATTEND Internal Medicine Cardiovascular Disease
DX: R07.89 Other chest pain (principal); I25.10 Atherosclerotic heart disease of native coronary artery without angina pectoris; J45.909 Unspecified asthma, uncomplicated; K21.9 Gastro-esophageal reflux disease without esophagitis; E03.9 Hypothyroidism, unspecified; I10 Essential (primary) hypertension; C61 Malignant neoplasm of prostate; C79.51 Secondary malignant neoplasm of bone; Z90.81 Acquired absence of spleen; Z92.21 Personal history of antineoplastic chemotherapy; Z95.1 Presence of aortocoronary bypass graft; Z85.828 Personal history of other malignant neoplasm of skin; Z88.8 Allergy status to other drugs, medicaments and biological substances; Z88.6 Allergy status to analgesic agent; Z88.2 Allergy status to sulfonamides; Z79.52 Long term (current) use of systemic steroids
CPT/HCPCS: 71010; 71275; 80053; 82550; 83690; 83735; 83880; 84484; 85007; 85027; 85379; 85610; 85730; 93005; 96361; 96374; 96375; 99285; G0378; J1170; J1642; J2405; J7040; Q9967

== ENCOUNTER 2017-08-17 09:13 | Emergency (ER) | payer MEDICARE ==
[~2017-08-17] VITALS: Ht 177.8 cm; Wt 70.0 kg
[~2017-08-17 09:13] MED LIST changes: -FURO1TAB62 PO; -OMEP20TA PO; +OMEP20TA93 PO; -PROC10TA PO; -ZOFR8TAB PO
[2017-08-17 09:20] VITALS: BP 199/87; PULSE 73; RESP 16; TEMP 98.4; O2SAT 97
--- NOTE | 2017-08-17 09:54 | PD ---
HPI Chief Complaint: Pain: Acute or Chronic Time Seen by Provider: 09:45 Travel History International Travel<30 days: No Contact w/Intl Traveler<30days: No Traveled to known affect area: No History of Present Illness HPI 71-year-old man with PMH of metastatic prostate cancer presents to the ED for evaluation of 01/06 right-sided neck and shoulder pain. Onset about a month ago after he rode the [employer] at [employer]. Patient states that the pain radiates to the head and occasionally causes dull headaches. He denies vision changes, dizziness, numbness, tingling, weakness, limitations to range of motion or loss of strength of the right arm. He discussed the problem with Dr. Alvarez and was instructed to use RICE therapy. He states that symptoms have not improved despite this treatment. PFSH Past Medical History Hx Anticoagulant Therapy: Yes Arthritis: No Asthma: Yes Blood Disorders: No Anxiety: Yes Depression: No Heart Rhythm Problems: No Cancer: Yes (SKIN, PROSTATE AND BONE) Cardiac Catheterization: Yes Cardiovascular Problems: Yes High Cholesterol: Yes Chemotherapy: Yes Chest Pain: Yes Congestive Heart Failure: No COPD: No Cerebrovascular Accident: No Coronary Artery Disease: Yes Diabetes: No Diminished Hearing: No Endocrine: Yes Gastrointestinal Disorders: Yes GERD: Yes Genitourinary: No Headaches: Yes Hepatitis: No Hiatal Hernia: No Heparin Induced Thrombocytopen: No Hypertension: Yes Immune Disorder: No Implanted Vascular Access Dvce: No Musculoskeletal: Yes Neurologic: No Psychiatric: No Reproductive: No Respiratory: Yes Immunizations Current: Yes Myocardial Infarction: No Radiation Therapy: No Seizures: No Sickle Cell Disease: No Sleep Apnea: No Thyroid Disease: Yes Ulcer: Yes Past Surgical History Abdominal Surgery: Yes (STENT - ABDOMEN 2013) AICD: No Coronary Artery Bypass Graft: Yes Ear Surgery: No Endocrine Surgery: No Eye Surgery: No Genitourinary Surgery: No Joint Replacement: No Neurologic Surgery: No Oral Surgery: No Pacemaker: No Thoracic Surgery: No Other Surgery: Yes (SPLEENECTOMY) Family History Family Myocardial Infarction: Yes Social History Alcohol Use: Yes (OCC BEER) Tobacco Use: No (QUIT 1989) Substance Use: No Allergies-Medications (Allergen,Severity, Reaction): Coded Allergies: Sulfa (Sulfonamide Antibiotics) (Unverified Allergy, Severe, Rash, 01/11/17 ) HIVES atorvastatin (Unverified Allergy, Severe, rash, 01/11/17) aspirin (Unverified Allergy, Unknown, 01/11/17) prednisone (Unverified Allergy, Unknown, 01/11/17) rosuvastatin (Unverified Adverse Reaction, Severe, 01/11/17) ABDOMINAL PAIN/MUSCLE ACHES Uncoded Allergies: IRENE (Adverse Reaction, Unknown, Swelling, 05/02/15) Pivastatin Cholesterol med - swelling in legs Reported Meds & Prescriptions Reported Meds & Active Scripts Active Robaxin (Methocarbamol) 750 Mg Tab 750 Mg PO Q4H Reported Xtandi (Enzalutamide) 40 Mg Cap 160 Mg PO DAILY Hydromorphone (Hydromorphone HCl) 8 Mg Tab 8 Mg PO Q3HR PRN Symbicort Inh (Budesonide/Formoterol Fumarate) 160-4.5 Mcg/Act Aero 1 Puff INH Q12HR Amlodipine (Amlodipine Besylate) 5 Mg Tab 5 Mg PO DAILY Lisinopril 10 Mg Tab 10 Mg PO BID Omeprazole 20 Mg Tab 20 Mg PO DAILY PRN Levothyroxine (Levothyroxine Sodium) 100 Mcg Tab 100 Mcg PO DAILY Proair Hfa 8.5 GM Inh (Albuterol Sulfate) 90 Mcg/Act Aer 1 Puff INH Q4H PRN 108 mcg/actuation Review of Systems Except as stated in HPI: all other systems reviewed are Neg Physical Exam Narrative GENERAL: Well-nourished, well-developed white male in no acute distress. SKIN: Focused skin assessment warm/dry. HEAD: Normocephalic. EYES: No scleral icterus. No injection or drainage. NECK: Supple, trachea midline. No JVD or lymphadenopathy. No midline tenderness to palpation. Mild TTP of the left paraspinal muscles. Patient retains full, active ROM of the neck. Left rotation elicits pain in the right side. CARDIOVASCULAR: Regular rate and rhythm without murmurs, gallops, or rubs. RESPIRATORY: Breath sounds equal bilaterally. No accessory muscle use. GASTROINTESTINAL: Abdomen soft, non-tender, nondistended. MUSCULOSKELETAL: No cyanosis, or edema. FOCUSED RIGHT UPPER EXTREMITY EXAM: 2+ radial pulse. No tenderness to palpation. 5/5 strength in all muscle groups. Neurovascularly intact distally. NEUROLOGICAL: Awake and alert. Cranial nerves II through XII intact. Motor and sensory grossly within normal limits. Five out of 5 muscle strength in all muscle groups. Normal speech. BACK: Nontender without obvious deformity. No CVA tenderness. Data Data Last Documented VS Vital Signs Date Time Temp Pulse Resp B/P (MAP) Pulse Ox O2 Delivery O2 Flow Rate FiO2 08/17/17 09:20 98.4 73 16 199/87 (124) [address] Cerv Spine W/O Contrast (08/17/17 ) Ketorolac Inj (Toradol Inj) (08/17/17 10:00) Ed Discharge Order (08/17/17 12:52) MDM Medical Decision Making Medical Screen Exam Complete: Yes Emergency Medical Condition: Yes Differential Diagnosis Musculoskeletal pain versus radiculopathy versus metastatic prostate cancer versus other Narrative Course 71-year-old man with PMH of metastatic prostate cancer presents to the ED for evaluation of 8 right-sided neck and shoulder pain. Onset about a month ago after he rode the [employer] at [facility] [employer]. Patient states that the pain radiates to the head and occasionally causes dull headaches. He denies vision changes, dizziness, numbness, tingling, weakness, limitations to range of motion or loss of strength of the right arm. He discussed the problem with Dr. Alvarez and was instructed to use RICE therapy. He states that symptoms have not improved despite this treatment. Vitals reviewed. On exam there is no midline tenderness to palpation of the neck. The patient has tenderness to palpation of the paraspinal musculature on the right side. Pain is elicited with rotation to the left. Patient was a strict single dose of IM Toradol. CT of the neck reveals degenerative spondylosis without central canal or neural foraminal stenosis. There is also multiple osseous lesions characteristic of diffuse metastatic disease. I discussed the results of the workup with the patient. I recommended that he follow up with the orthopedist or neurologist for further evaluation. I prescribed a short course of muscle relaxants and encouraged to him to continue with moist warm or cold heat. We discussed reasons to return to the ED. He is agreeable a care plan. Patient states that he has follow-up with the orthopedist in a few days. He is stable and discharged home. Diagnosis Primary Impression: Neck pain on right side Referrals: Neurologist Orthopedist Additional Instructions: Rest, hydrate. Return to normal, gentle activity as tolerated. Continue with warm or cold compresses 10-15 min per session 4-5 times daily. Muscle relaxants as prescribed. Do not drive while taking this medication as it can make you drowsy. Follow up with the orthopedist as planned. Return to the ED for worsening symptoms or any urgent/ emergent medical condition. Scripts Methocarbamol (Robaxin) 750 Mg Tab 750 MG PO Q4H for Muscle Spasm, #12 TAB 0 Refills Prov: Serena Steiner MD 08/17/17 Disposition: 01 DISCHARGE HOME Condition: Stable Tammie Kraft Aug 17, 2017 09:54
[2017-08-17] MEDS ORDERED: KETOROLAC TROMETHAMINE 60 MG/2 ML (IM) VIAL IM ONE (10:00)
--- NOTE | 2017-08-17 11:56 | RADRPT ---
EXAM DATE/TIME: 08/17/2017 10:20 [facility] COMPARISON: No previous studies available for comparison. INDICATIONS : Right neck and shoulder pain for 1 month RADIATION DOSE: 24.98 CTDIvol (mGy) MEDICAL HISTORY : Hypertension. Cardiovascular disease Carcinoma, prostate. SURGICAL HISTORY : Splenectomy. ENCOUNTER: Initial ACUITY: 1 month PAIN SCALE: 9/10 LOCATION: Right neck TECHNIQUE: Volumetric scanning of the cervical spine was performed. Multiplanar reconstructions in the sagittal, coronal and oblique axial planes were performed. Using automated exposure control and adjustment o f the mA and/or kV according to patient size, radiation dose was kept as low as reasonably achievable to obtain optimal diagnostic quality images. DICOM format image data is available electronically f or review and comparison. FINDINGS: VERTEBRAE: Normal vertebral body height. No acute fracture. Multiple sclerotic vertebral lesions in this patient with history of metastatic prostate CA. Dens is intact. There is a normal C1-2 relationship. ALIGNMENT: Sagittal alignment is maintained. MISCELLANEOUS: Bulky left carotid calcified plaque. Right lung apices are clear. C2-C3: Mild diffuse disc bulge with bilateral uncovertebral osteophytes. No significant bony central canal n arrowing. Neural foramina are patent. C3-C4: Minimal diffuse disc bulge and uncovertebral osteophytes. Moderate right facet arthropathy. No signif icant central canal or neural foraminal stenosis. C4-C5: Mild diffuse disc bulge and bilateral uncovertebral osteophytes with minimal effacement the anterior central canal. Bilateral facet arthropathy. No significant neural foraminal stenosis. C5-C6: Mild diffuse disc bulge and bilateral uncovertebral osteophytes. Bilateral facet arthropathy. No sign ificant central canal or neural foraminal stenosis. C6-C7: Minimal disc bulge without significant central canal or neural foraminal stenosis. C7-T1: Anterior osteophytes and disc space narrowing. No significant central canal or neural foraminal steno sis. CONCLUSION: 1. Multilevel degenerative spondylosis of the cervical spine without significant bony central canal o r neural foraminal stenosis. 2. Multiple sclerotic osseous lesions consistent with diffuse metastatic disease in this patient with history of metastatic prostate CA. Jignesh Cali MD on August 17, 2017 at 11:30 Board Certified Radiologist. This report was verified electronically.
[2017-08-17] MEDS ORDERED: ROBA750T PO (12:06)
== END 2017-08-17 12:53 | disposition home or self-care (01) ==
LOC: NEPK 09:13
DX: M54.2 Cervicalgia (principal); J45.909 Unspecified asthma, uncomplicated; E78.00 Pure hypercholesterolemia, unspecified; F41.9 Anxiety disorder, unspecified; I25.10 Atherosclerotic heart disease of native coronary artery without angina pectoris; K21.9 Gastro-esophageal reflux disease without esophagitis; I10 Essential (primary) hypertension; E07.9 Disorder of thyroid, unspecified; Z87.891 Personal history of nicotine dependence
CPT/HCPCS: 72125; 96372; 99283; J1885

== ENCOUNTER → 2017-11-01 | Outpatient (CLI) | payer MEDICARE ==
[~2017-11-01] MED LIST changes: +ROBA750T PO
== END ==
LOC: PHRSP 07:16
PROVIDERS: ATTEND Internal Medicine Pulmonary Disease
DX: J45.909 Unspecified asthma, uncomplicated (principal)
CPT/HCPCS: 36600; 82805; 94060; 94618; 94726; 94729

== ENCOUNTER 2017-12-04 03:35 | Inpatient (IN) ==
[2017-12-04 05:12] LABS: Baso # (Auto) 0.1 th/mm3 (0.0-0.2); Baso % (Auto) 1.4 % (0.0-2.0); Eos # (Auto) 1.1 th/mm3 (0.0-0.4); Hematocrit 37.7 % (39.0-51.0); Hemoglobin 12.7 gm/dL (13.0-17.0); Lymph # (Auto) 2.1 th/mm3 (1.0-4.8); Lymph % (Auto) 23.4 % (9.0-44.0); Mean Corpuscular HGB Conc 33.9 % (32.0-36.0); Mean Corpuscular Hemoglobin 32.2 pg (27.0-34.0); Mean Platelet Volume 8.2 fL (7.0-11.0); Mono # (Auto) 1.1 th/mm3 (0.0-0.9); Mono % (Auto) 12.3 % (0.0-8.0); Neut # (Auto) 4.5 th/mm3 (1.8-7.7); Neut % (Auto) 50.9 % (16.0-70.0); Platelet Count 427 th/mm3 (150-450); Red Blood Count 3.96 mil/mm3 (4.50-5.90); Red Cell Distribution Width 13.6 % (11.6-17.2); White Blood Count 8.9 th/mm3 (4.0-11.0)
[2017-12-04 05:16] LABS: Anion Gap 10 meq/L (5-15); Blood Urea Nitrogen 20 mg/dL (7-18); Calcium 8.9 mg/dL (8.5-10.1); Carbon Dioxide 22.8 meq/L (21.0-32.0); Chloride 105 meq/L (98-107); Glomerular Filtration Rate 75 mL/min (>89); Glucose,Random 122 mg/dL (74-106); Magnesium 2.1 mg/dL (1.5-2.5); Potassium 3.8 meq/L (3.5-5.1); Sodium 138 meq/L (136-145)
[2017-12-04 05:18] LABS: Activated Partial Thrombo Time 29.8 sec (24.3-30.1); Prothrombin Time 10.3 sec (9.8-11.6)
[2017-12-04 05:21] LABS: Creatine Kinase 251 U/L (39-308)
[2017-12-04 05:27] LABS: Troponin I 1.18 ng/mL (0.02-0.05)
--- NOTE | 2017-12-04 05:35 | XR ---
EXAM DATE: 12/04/2017 5:22 AM EDT AGE/SEX: 72 years / Male INDICATIONS: Chest pain. CLINICAL DATA: This is the patient's subsequent encounter. Patient reports that signs and symptoms h ave been present for 1 day and indicates a pain score of 7/10. MEDICAL/SURGICAL HISTORY: None. None. COMPARISON: No prior exams available for comparison. FINDINGS: Single AP view the chest. Right-sided [id number] in place. Mild left lung base atelectasis. Lungs otherwise clear. Cardiomediastinal silhouette within normal limits. No evidence of pleural effusion o r pneumothorax. Multiple scattered areas of bony sclerosis again suggest bony metastatic disease. CONCLUSION: 1. Mild left lung base atelectasis. 2. Evidence of bony metastatic disease again noted. Electronically signed by: Jimenez Woodall MD 12/04/2017 5:34 AM EDT
[2017-12-04 05:39] LABS: Creatine Kinase MB 9.1 ng/mL (0.5-3.6)
--- NOTE | 2017-12-04 06:13 | ED ---
HPI General Chief Complaint: Chest Pain Stated Complaint: Chest Pain Time Seen by Provider: 12/04/17 04:40 History of Present Illness HPI narrative: Patient complaining of chest pain which began on Tuesday. The pain is described as a squeezing pressure pain. Patient has a cardiac history as well as metastatic prostate cancer. He is currently undergoing chemotherapy. Patient reports pain in his chest which is not relieved by his Dilaudid at home. He also reports intermittent shortness of breath over the last couple days. He seems to be focused on the fact that after he drank a Frappuccino his pain began and his pain is being because somehow by the Frappuccino. The history is somewhat limited because of his fixation on the Frappuccino. Complete Quality Measures for STEMI Alert Patients Related Data Home Medications Medication Instructions Recorded Confirmed albuterol sulfate [ProAir HFA] 2 puff INHALATION Q4-6H PRN 12/04/17 12/04/17 amlodipine 5 mg PO DAILY 12/04/17 12/04/17 budesonide-formoterol [Symbicort] 2 puff INHALATION Q12H 12/04/17 12/04/17 enzalutamide [Xtandi] 160 mg PO DAILY 12/04/17 12/04/17 hydromorphone [Dilaudid] 6 mg PO Q4-6H PRN 12/04/17 12/04/17 levothyroxine 100 mcg PO DAILY 12/04/17 12/04/17 lisinopril 10 mg PO DAILY 12/04/17 12/04/17 omeprazole 20 mg PO DAILY 12/04/17 12/04/17 Allergies Allergy/AdvReac Type Severity Reaction Status Date / Time atorvastatin Allergy Severe rash Verified 12/04/17 04:48 Sulfa (Sulfonamide Allergy Severe Rash Verified 12/04/17 04:48 Antibiotics) aspirin Allergy Unknown Abdominal Verified 12/04/17 04:48 Pain prednisone Allergy Unknown Muscle Pain Verified 12/04/17 04:48 rosuvastatin AdvReac Severe Muscle Pain Verified 12/04/17 04:48 IRENE AdvReac Unknown Swelling Uncoded 12/04/17 04:48 Review of Systems Except as stated in HPI: all other systems reviewed are negative PMFSH Medical History Medical History Abnormal digestive tract function (Acute) Bone cancer (Acute) FH: CABG (coronary artery bypass surgery) (Acute) HTN (hypertension) (Acute) Hypercholesteremia (Acute) Surgical History Surgical History H/O splenectomy (Acute) Social History Social History Substance History: No History of Abuse Second Hand Smoke Exposure: No Smoking Status: Former smoker How Often Do You Have a Drink Containing Alcohol: 2 to 3 times a week Recent Travel in [facility] within the Last 8 Weeks: No Recent Out of Country Travel within the Last 8 Weeks: No Immunization History Tetanus Immunization: >5 Years Hx Influenza Vaccine This Season: Yes Exam Narrative Exam Narrative: GENERAL: 72-year-old male in no acute distress SKIN: Focused skin assessment warm/dry. HEAD: Atraumatic. Normocephalic. EYES: Pupils equal and round. No scleral icterus. No injection or drainage. ENT: No nasal bleeding or discharge. Mucous membranes pink and moist. NECK: Trachea midline. No JVD. CARDIOVASCULAR: Regular rate and rhythm. No murmur appreciated. RESPIRATORY: No accessory muscle use. Clear to auscultation. Breath sounds equal bilaterally. CHEST: Midline scar well-healed and remote from prior sternotomy. GASTROINTESTINAL: Abdomen soft, non-tender, nondistended. Hepatic and splenic margins not palpable. MUSCULOSKELETAL: No obvious deformities. No clubbing. No cyanosis. No edema. NEUROLOGICAL: Awake and alert. No obvious cranial nerve deficits. Motor grossly within normal limits. Normal speech. PSYCHIATRIC: Anxious Course Initial Documented Vital Signs Temperature 97.8 F 12/04/17 03:41 Pulse Rate 73 12/04/17 03:41 Respiratory Rate 18 12/04/17 03:41 Blood Pressure 211/89 H 12/04/17 03:41 Pulse Oximetry 97 12/04/17 03:41 Last Documented Vital Signs Temperature 97.8 F 12/04/17 03:41 Pulse Rate 75 12/04/17 05:14 Respiratory Rate 14 12/04/17 05:14 Blood Pressure 147/70 H 12/04/17 05:14 Pulse Oximetry 94 L 12/04/17 05:14 Critical Care Time Critical Care Time: Yes Total Critical Care Time: 30 Attestation: This patient required greater than 30 minutes of critical care time Medical Decision Making MDM Narrative Medical decision making narrative: Patient was seen and evaluated in the emergency department. Despite his fixation with [facility] a strong suspicion for a cardiac eitology lead us to the diagnosis of an NSTEMI. His initial troponin was 1.18 he was given nitroglycerin initially and placed on a nitroglycerin drip as well as a heparin drip once the diagnosis was made. He is admitted to [facility] for non-STEMI Lab Data Result diagrams: 12/04/17 04:55 12/04/17 04:55 Lab Results 12/04/17 12/04/17 12/04/17 Range/Units 04:55 04:55 04:55 WBC 8.9 (4.0-11.0) th/mm3 RBC 3.96 L (4.50-5.90) mil/mm3 Hgb 12.7 L (13.0-17.0) gm/dL Hct 37.7 L (39.0-51.0) % MCV 95.0 (80.0-100.0) fL MCH 32.2 (27.0-34.0) pg MCHC 33.9 (32.0-36.0) % RDW 13.6 (11.6-17.2) % Plt Count 427 (150-450) th/mm3 MPV 8.2 (7.0-11.0) fL Neut % (Auto) 50.9 (16.0-70.0) % Lymph % (Auto) 23.4 (9.0-44.0) % [place] % (Auto) 12.3 H (0.0-8.0) % Eos % (Auto) 12.0 H (0.0-4.0) % Baso % (Auto) 1.4 (0.0-2.0) % Neut # (Auto) 4.5 (1.8-7.7) th/mm3 Lymph # (Auto) 2.1 (1.0-4.8) th/mm3 [place] # (Auto) 1.1 H (0.0-0.9) th/mm3 Eos # (Auto) 1.1 H (0.0-0.4) th/mm3 Baso # (Auto) 0.1 (0.0-0.2) th/mm3 WBC Differential . Differential Comment Auto diff final PT 10.3 (9.8-11.6) sec INR 1.0 Ratio APTT 29.8 (24.3-30.1) sec Sodium 138 (136-145) meq/L Potassium 3.8 (3.5-5.1) meq/L Chloride 105 (98-107) meq/L Carbon Dioxide 22.8 (21.0-32.0) meq/L Anion Gap 10 (5-15) meq/L BUN 20 H (7-18) mg/dL Creatinine 0.99 (0.60-1.30) mg/dL Estimated GFR 75 L (>89) mL/min Random Glucose 122 H (74-106) mg/dL Calcium 8.9 (8.5-10.1) mg/dL Magnesium 2.1 (1.5-2.5) mg/dL Total Creatine Kinase 251 (39-308) U/L CK-MB (CK-2) 9.1 H (0.5-3.6) ng/mL Troponin I 1.18 H* (0.02-0.05) ng/mL Imaging Data Radiologist's impression: ITS Impressions Chest X-Ray 12/04/17 04:40 CONCLUSION: 1. Mild left lung base atelectasis. 2. Evidence of bony metastatic disease again noted. Discharge Plan Discharge Disposition Patient Disposition: 30 Still Patient Discharge Condition Condition: Stable Discharge Details Discharge Problem: Non-ST elevation (NSTEMI) myocardial infarction Physicians Team ED Provider: Carlito Newton Primary Care Provider: Kian Alonzo Other Providers: Jose Alejandro Arshad Rxs /Orders / Referrals /Forms Prescriptions: No Action amlodipine 5 mg Tablet 5 mg PO DAILY RF: 0 hydromorphone [Dilaudid] 2 mg Tablet 6 mg PO Q4-6H PRN (Reason: Acute Pain) RF: 0 lisinopril 10 mg Tablet 10 mg PO DAILY RF: 0 omeprazole 20 mg Capsule,Delayed Release(Dr/Ec) 20 mg PO DAILY RF: 0 albuterol sulfate [ProAir HFA] 90 mcg/actuation Hfa Aerosol Inhaler 2 puff INHALATION Q4-6H PRN (Reason: Acute Pain) RF: 0 budesonide-formoterol [Symbicort] 160-4.5 mcg/actuation Hfa Aerosol Inhaler 2 puff INHALATION Q12H RF: 0 levothyroxine 100 mcg Capsule 100 mcg PO DAILY RF: 0 enzalutamide [Xtandi] 40 mg Capsule 160 mg PO DAILY RF: 0 Discharge Instructions Patient Printed Instructions: Chest Pain (ED) Status ED Status: With Doctor
[2017-12-04] MEDS ORDERED: Heparin 10,000 UNITS/10 ML Vial (for IV use) IV.PUSH STA (06:15)
[2017-12-04] MEDS: Heparin Drip 25,000 UNIT/250 ML BAG IV.CONT PRN (06:38)
[2017-12-04] MEDS: Nitroglycerin Drip Premix 50 MG/250 ML BOTTLE IV.CONT PRN ×2 (07:00→20:14)
[2017-12-04] MEDS: Budesonide-Formoterol 160/4.5 MCG 6 GM Inhaler INH SCH ×2 (08:50→19:21)
[2017-12-04] MEDS ORDERED: Lisinopril 10 MG Tablet PO SCH (09:00)
[2017-12-04] MEDS ORDERED: LEVOTHYROXINE 100 MCG PO SCH (09:00)
[2017-12-04] MEDS ORDERED: amLODIPine 5 MG Tablet PO SCH (09:00)
[2017-12-04] MEDS: Morphine Inj 4 MG/ML Vial IV.PUSH PRN (09:49)
[2017-12-04] MEDS: Pantoprazole Sodium 20 MG DR Tablet PO SCH (09:49)
--- NOTE | 2017-12-04 10:08 | P.HPIM ---
[facility] of Present Illness [facility] Physician: Kian Alonzo MD Chief Complaint: Chest pain History of Present Illness: 72-year-old male with a medical history significant for coronary artery disease status post CABG in 2002, right carotid endarterectomy, peripheral artery disease, prostate cancer with bony metastasis presented to the emergency room with complaint of chest pain. The patient reported the chest pain started about 3 days ago. It involved his whole chest and back. He tried some icy hot without much relief. The pain became worse overnight which prompted the visit to the emergency room. He reports mild intermittent shortness of breath. He denies nausea or vomiting. He follows regularly with cardiology, Dr. Mohamud and oncologist is Dr. Alvarez. Workup in the emergency room is consistent with NSTEMI. - Diagnosis (1) Non-ST elevation (NSTEMI) myocardial infarction (2) Prostate cancer metastatic to bone (3) Hypertension (4) GERD (gastroesophageal reflux disease) (5) PAD (peripheral artery disease) Inpatient Certification: I certify that the inpatient services were ordered in accordance with Medicare regulations governing the order. This includes certification that hospital inpatient services are reasonable and necessary and in the case of services not specified as inpatient-only under 42 CFR 419.22(n), that they are appropriately provided as inpatient services in accordance to with the 2-midnight benchmark under 43 CFR 412.3(e) Estimated Total Length of Stay (Days): 2 Plans for Post Hospital Care: Not yet determined Review of Systems All other systems reviewed negative except as stated in HPI [facility] - History History Provided By: Patient - Medical History Medical History: Medical History (Last Reviewed 12/04/17 @ 10:48 by Kayce Chisholm MD) Abnormal digestive tract function Bone cancer FH: CABG (coronary artery bypass surgery) HTN (hypertension) Hypercholesteremia Peripheral artery disease - Surgical History Surgical History: Surgical History (Last Updated 12/04/17 @ 03:46 by Sadie Noyola) H/O splenectomy - Tobacco History Second Hand Smoke Exposure: No Tobacco Use In Past 30 Days: No Smoking Status: Former smoker - Alcohol History How Often Do You Have a Drink Containing Alcohol: 2 to 3 times a week - Substance Use History Substance History: No History of Abuse - Travel History Recent Travel in the [place] Within the Last 8 Weeks: No Recent Travel Out of the Country Within the Last 8 Weeks: No - Immunization History Tetanus Immunization: >5 Years Hx Influenza Vaccine This Season: Yes Medications and Allergies Active Medications: Active Medications Amlodipine Besylate (Norvasc) 5 mg PO DAILY [facility] Last Admin: 12/04/17 08:50 Dose: 5 mg Budesonide/Formoterol Fumarate (Symbicort 160/4.5 Mcg Inh) 2 puff INH Q12H [facility] Last Admin: 12/04/17 08:50 Dose: 2 puff Carvedilol (Coreg) 3.125 mg PO BID [facility] Last Admin: 12/04/17 08:50 Dose: 3.125 mg Nitroglycerin/Dextrose (Nitroglycerin Drip Premix) 50 mg in 250 mls @ 0 mls/hr IV.CONT TITRATE PRN; Protocol PRN Reason: Per Protocol Last Admin: 12/04/17 07:00 Dose: 20 mcg/min, 6 mls/hr Heparin Sodium/Dextrose (Heparin/D5w 25,000 U/250 Ml) 25,000 unit in 250 mls @ 0 mls/hr IV.CONT TITRATE PRN; Protocol PRN Reason: Per Protocol Last Admin: 12/04/17 06:38 Dose: 1,000 units/hr, 10 mls/hr Levothyroxine Sodium (Synthroid) 100 mcg PO DAILY@0600 [facility] Lisinopril (Prinivil) 10 mg PO DAILY [facility] Last Admin: 12/04/17 08:50 Dose: 10 mg Morphine Sulfate (Morphine Inj) 4 mg IV.PUSH Q4H PRN PRN Reason: BREAKTHROUGH PAIN Last Admin: 12/04/17 09:49 Dose: 4 mg Non-Formulary Medication (Enzalutamide [Xtandi]) 160 mg PO DAILY [facility] Last Admin: 12/04/17 09:46 Dose: Not Given Ondansetron HCl (Zofran Inj) 4 mg IV.PUSH Q6H PRN PRN Reason: NAUSEA OR VOMITING Pantoprazole Sodium (Protonix) 20 mg PO DAILY [facility] Last Admin: 12/04/17 09:49 Dose: 20 mg Sodium Chloride (Ns Flush) 2 ml IV.FLUSH UNSCH PRN PRN Reason: FLUSH AFTER USING IV ACCESS Last Admin: 12/04/17 08:50 Dose: 2 ml Sodium Chloride (Ns Inj) 2 ml IV.FLUSH BID [facility] Last Admin: 12/04/17 09:48 Dose: 2 ml Sodium Chloride (Ns Inj) 2 ml IV.FLUSH UNSCH PRN PRN Reason: FLUSH AFTER USING IV ACCESS Allergies Allergy/AdvReac Type Severity Reaction Status Date / Time atorvastatin Allergy Severe rash Verified 12/04/17 04:48 Sulfa (Sulfonamide Allergy Severe Rash Verified 12/04/17 04:48 Antibiotics) aspirin Allergy Unknown Abdominal Verified 12/04/17 04:48 Pain prednisone Allergy Unknown Muscle Pain Verified 12/04/17 04:48 rosuvastatin AdvReac Severe Muscle Pain Verified 12/04/17 04:48 IRENE AdvReac Unknown Swelling Uncoded 12/04/17 04:48 Home Medications Medication Instructions Recorded Confirmed Type albuterol sulfate [ProAir HFA] 2 puff INHALATION Q4-6H PRN 12/04/17 12/04/17 History amlodipine 5 mg PO DAILY 12/04/17 12/04/17 History budesonide-formoterol [Symbicort] 2 puff INHALATION Q12H 12/04/17 12/04/17 History enzalutamide [Xtandi] 160 mg PO DAILY 12/04/17 12/04/17 History hydromorphone [Dilaudid] 6 mg PO Q4-6H PRN 12/04/17 12/04/17 History levothyroxine 100 mcg PO DAILY 12/04/17 12/04/17 History lisinopril 10 mg PO DAILY 12/04/17 12/04/17 History omeprazole 20 mg PO DAILY 12/04/17 12/04/17 History Exam Vital signs: Vital Signs 12/04/17 03:41 12/04/17 04:54 12/04/17 05:14 Temperature 97.8 F Pulse Rate 73 71 75 Respiratory Rate 18 16 14 Blood Pressure 211/89 H 147/70 H Pulse Oximetry 97 97 94 L 12/04/17 06:40 12/04/17 07:00 12/04/17 07:15 Temperature Pulse Rate 70 70 73 Respiratory Rate 16 22 21 Blood Pressure 208/89 H 206/81 H 172/75 H Pulse Oximetry 96 97 12/04/17 07:30 12/04/17 07:45 12/04/17 08:00 Temperature Pulse Rate 77 76 66 Respiratory Rate 21 18 15 Blood Pressure 150/71 H 171/79 H 158/72 H Pulse Oximetry 97 98 98 12/04/17 08:15 12/04/17 08:30 12/04/17 08:45 Temperature Pulse Rate 72 74 Respiratory Rate 27 H 24 25 H Blood Pressure 159/74 H 199/98 H 178/85 H Pulse Oximetry 97 Intake & Output 12/03/17 12/04/17 12/04/17 18:59 06:59 18:59 Weight 90.718 kg Narrative: GENERAL: This is a well-nourished, well-developed patient, in no apparent distress. CARDIOVASCULAR: Normal rate and regular rhythm without murmurs, gallops, or rubs. RESPIRATORY: Good respiratory efforts. Breath sounds equal and clear to auscultation bilaterally. GASTROINTESTINAL: Abdomen soft, non-tender, non-distended. Normal active bowel sounds MUSCULOSKELETAL: Extremities without cyanosis, or edema. NEURO: Alert & Oriented x4 to person, place, time, situation. Moves all ext x4 PSYCH: Appropriate mood and affect. Results - Labs CBC & Chem 7: 12/04/17 04:55 12/04/17 04:55 Labs: Short CBC 12/04/17 Range/Units 04:55 WBC 8.9 (4.0-11.0) th/mm3 Hgb 12.7 L (13.0-17.0) gm/dL Hct 37.7 L (39.0-51.0) % Plt Count 427 (150-450) th/mm3 BMP 12/04/17 04:55 Sodium 138 Potassium 3.8 Chloride 105 Carbon Dioxide 22.8 BUN 20 H Creatinine 0.99 Calcium 8.9 Cardiac Enzymes 12/04/17 Range/Units 04:55 Total Creatine Kinase 251 (39-308) U/L CK-MB (CK-2) 9.1 H (0.5-3.6) ng/mL Troponin I 1.18 H* (0.02-0.05) ng/mL - Imaging Impressions Chest X-Ray 12/04/17 04:40 CONCLUSION: 1. Mild left lung base atelectasis. 2. Evidence of bony metastatic disease again noted. Caprini VTE Risk Assessment Caprini VTE Risk Assessment: Moderate/High Risk (score >= 2) Caprini Risk Assessment Model: Point Value = 1 Point Value = 2 Point Value = 3 Point Value = 5 Age 41-60 Minor surgery BMI > 25 kg/m2 Swollen legs Varicose veins or History of unexplained or recurrent spontaneous Oral contraceptives or hormone replacement Sepsis (< 1 month) Serious lung disease, including pneumonia (< 1 month) Abnormal pulmonary function Acute myocardial infarction Congestive heart failure (< 1 month) History of inflammatory bowel disease Medical patient at bed rest Age 61-74 Arthroscopic surgery Major open surgery (> 45 min) Laparoscopic surgery (> 45 min) Malignancy Confined to bed (> 72 hours) Immobilizing plaster cast Central venous access Age >= 75 History of VTE Family history of VTE Factor V Leiden Prothrombin [id number] Lupus anticoagulant Anticardiolipin antibodies Elevated serum homocysteine Heparin-induced thrombocytopenia Other congenital or acquired thrombophilia Stroke (< 1 month) Elective arthroplasty Hip, pelvis, or leg fracture Acute spinal cord injury (< 1 month) Prophylaxis Regimen: Total Risk Factor Score Risk Level Prophylaxis Regimen 0-1 Low Early ambulation 2 Moderate Order ONE of the following: *Sequential Compression Device (SCD) *Heparin 5000 units SQ BID 3-4 Higher Order ONE of the following medications: *Heparin 5000 units SQ TID *Enoxaparin/Lovenox 40 mg SQ daily (WT < 150 kg, CrCl > 30 mL/min) *Enoxaparin/Lovenox 30 mg SQ daily (WT < 150 kg, CrCl > 10-29 mL/min) *Enoxaparin/Lovenox 30 mg SQ BID (WT < 150 kg, CrCl > 30 mL/min) AND/OR *Sequential Compression Device (SCD) 5 or more Highest Order ONE of the following medications: *Heparin 5000 units SQ TID (Preferred with Epidurals) *Enoxaparin/Lovenox 40 mg SQ daily (WT < 150 kg, CrCl > 30 mL/min) *Enoxaparin/Lovenox 30 mg SQ daily (WT < 150 kg, CrCl > 10-29 mL/min) *Enoxaparin/Lovenox 30 mg SQ BID (WT < 150 kg, CrCl > 30 mL/min) AND *Sequential Compression Device (SCD) Assessment and Plan - Assessment (1) Non-ST elevation (NSTEMI) myocardial infarction Code(s): I21.4 - Non-ST elevation (NSTEMI) myocardial infarction Status: Acute Plan: History of CAD and CABG in 2002. Cardiology consulted. Patient started on heparin drip. Morphine as needed. On Coreg and lisinopril. Nitro as needed. (2) Prostate cancer metastatic to bone Code(s): C61 - Malignant neoplasm of prostate; C79.51 - Secondary malignant neoplasm of bone Status: Acute Plan: Follows with Dr. Alvarez outpatient. He has metastases to the spine but states he has not had much problem with pain. He has been stable on his current regimen or Xtandi and Lupron. (3) Hypertension Code(s): I10 - Essential (primary) hypertension Status: Chronic Plan: Continue lisinopril, amlodipine (4) GERD (gastroesophageal reflux disease) Code(s): K21.9 - Gastro-esophageal reflux disease without esophagitis Status: Acute Plan: Continue omeprazole (5) PAD (peripheral artery disease) Code(s): I73.9 - Peripheral vascular disease, unspecified Status: Acute Plan: Involving the left leg. Patient reports he is scheduled for surgery next week with Dr. Franco. Will need outpatient follow-up. Advised patient and his to discuss with cardiology regarding proper timing of surgery.
--- NOTE | 2017-12-04 11:12 | ECG ---
Date Performed: 12/04/2017 Time Performed: 03:51:41 PTAGE: 72 years EKG: Sinus rhythm NONSPECIFIC T-WAVE ABNORMALITY BORDERLINE ECG PREVIOUS TRACING : 11/16/2016 06.41 Compared to previous tracing, nonspecific T wave abnormalit y is now present. DOCTOR: Kin Perez Interpretating Date/Time 12/04/2017 11:11:41
[2017-12-04 12:12] LABS: Hematocrit 34.4 % (39.0-51.0); Hemoglobin 11.8 gm/dL (13.0-17.0); Mean Corpuscular HGB Conc 34.3 % (32.0-36.0); Mean Corpuscular Hemoglobin 32.6 pg (27.0-34.0); Mean Corpuscular Volume 95.3 fL (80.0-100.0); Mean Platelet Volume 8.1 fL (7.0-11.0); Platelet Count 407 th/mm3 (150-450); Red Blood Count 3.62 mil/mm3 (4.50-5.90); Red Cell Distribution Width 13.8 % (11.6-17.2); White Blood Count 9.5 th/mm3 (4.0-11.0)
[2017-12-04 12:23] LABS: INR 1.1 Ratio; Prothrombin Time 10.7 sec (9.8-11.6)
[2017-12-04 12:44] LABS: Troponin I 3.78 ng/mL (0.02-0.05)
[2017-12-04 12:57] LABS: Creatine Kinase MB 45.3 ng/mL (0.5-3.6)
[2017-12-04 13:19] LABS: CKMB Percent 9.3 % (0.0-4.0)
[2017-12-04] MEDS ORDERED: XTANDI PO SCH (16:00)
[2017-12-04 18:31] LABS: CKMB Percent 9.2 % (0.0-4.0)
[2017-12-04] MEDS: Acetaminophen 325 MG Tablet PO PRN (20:12)
--- NOTE | 2017-12-04 21:18 | MB ---
cc: Jose Alejandro Arshad MD DATE: 12/04/2017 HISTORY OF PRESENT ILLNESS: Mr. Balderrama is a 72-year-old white male with a history of coronary artery disease, coronary artery bypass in 2002, right carotid endarterectomy, peripheral vascular disease and prostate cancer with metastases to the bone. Last Tuesday, he was drinking a frappuccino and subsequently started to have lower substernal chest discomfort, radiating to both sides. He had previous GI issues in the past and he felt his pain was of GI origin. He also tried hot compresses without relief. He saw Dr. Alonzo and a CAT scan was ordered for Tuesday. This morning, the pain increased and the patient presented to the emergency room. His enzymes were mildly elevated and he was started on IV heparin and nitroglycerin. He has had significant improvement of his chest discomfort. He is a cardiology patient of Dr. Mohamud. PAST MEDICAL HISTORY: Positive for coronary artery disease, coronary artery bypass, hypertension, dyslipidemia, peripheral vascular disease. He sees Dr. Franco and was supposed to have coronary intervention by Dr. Franco next . He has a history of GI stent. He has a history of a splenectomy. MEDICATIONS: Include amlodipine, budesonide, formoterol, carvedilol, nitroglycerin IV, heparin IV, levothyroxine, lisinopril, morphine, Xtandi, Zofran p.r.n., pantoprazole. HOME MEDICATIONS: Include albuterol, amlodipine, Symbicort, Xtandi, Dilaudid, levothyroxine, lisinopril, omeprazole. ALLERGIES: THE PATIENT DID NOT TOLERATE ATORVASTATIN, SULFA, ASPIRIN AND PREDNISONE. SOCIAL HISTORY: The patient drinks alcohol 2-3 times a week. He does not smoke, but he used to smoke in the past. He is , accompanied by his . FAMILY HISTORY: Negative for heart disease in direct relatives. REVIEW OF SYSTEMS: Otherwise negative. PHYSICAL EXAMINATION: VITAL SIGNS: Blood pressure 127/60, pulse 74 and regular. HEENT: Negative. NECK: 2+ carotid upstrokes. No bruits. CHEST: There is a port in the right anterior chest. Lungs clear. HEART: Regular. No murmur, gallop, rub. ABDOMEN: Soft, no bruits. EXTREMITIES: Without edema. 2+ distal pulses. NEUROLOGIC: Grossly nonfocal. STUDY : EKG was reviewed and showed normal sinus rhythm. Normal axis and intervals. Nonspecific T-wave changes in lateral leads. No clear evidence of ischemia or pericarditis. LABORATORY DATA: Hemoglobin 11.8, potassium 3.8, creatinine 1.0, magnesium 2.1. CK 251, 486, CK-MB 9.1 and 45.3. Troponin 1.18 and 3.78. DIAGNOSES: 1. Non-ST elevation myocardial infarction. 2. Coronary artery disease, history of coronary bypass. 3. Prostate cancer, metastatic to the bone. 4. Hypertension. 5. Gastroesophageal reflux disease. 6. Peripheral vascular disease. PLAN: Mr. Balderrama will be monitored on telemetry. We will continue current therapy with IV heparin, IV nitroglycerin, and beta gianfranco. He may need cardiac catheterization for his further evaluation. Dr. Mohamud, his primary remote sensing engineer, will take over his care tomorrow. This was discussed with the patient and his . MD BUSTER Veliz/TARYN , 05:12 PM , 08:58 PM GORDY
[2017-12-05 05:51] LABS: Baso # (Auto) 0.1 th/mm3 (0.0-0.2); Baso % (Auto) 0.9 % (0.0-2.0); Eos # (Auto) 0.6 th/mm3 (0.0-0.4); Eos % (Auto) 5.9 % (0.0-4.0); Hematocrit 31.9 % (39.0-51.0); Lymph # (Auto) 1.9 th/mm3 (1.0-4.8); Lymph % (Auto) 17.4 % (9.0-44.0); Mean Corpuscular HGB Conc 34.6 % (32.0-36.0); Mean Corpuscular Hemoglobin 32.9 pg (27.0-34.0); Mean Corpuscular Volume 95.3 fL (80.0-100.0); Mean Platelet Volume 8.2 fL (7.0-11.0); Mono # (Auto) 1.4 th/mm3 (0.0-0.9); Neut # (Auto) 6.9 th/mm3 (1.8-7.7); Neut % (Auto) 62.8 % (16.0-70.0); Platelet Count 376 th/mm3 (150-450); Red Blood Count 3.34 mil/mm3 (4.50-5.90); Red Cell Distribution Width 13.5 % (11.6-17.2)
[2017-12-05 05:59] LABS: Calcium 8.4 mg/dL (8.5-10.1); Carbon Dioxide 24.6 meq/L (21.0-32.0); Potassium 3.9 meq/L (3.5-5.1)
[2017-12-05] MEDS: Budesonide-Formoterol 160/4.5 MCG 6 GM Inhaler INH SCH ×2 (08:27→20:50)
[2017-12-05] MEDS: Levothyroxine 100 MCG Tablet PO SCH (08:27)
[2017-12-05] MEDS: Pantoprazole Sodium 20 MG DR Tablet PO SCH (08:27)
[2017-12-05] MEDS: Heparin Drip 25,000 UNIT/250 ML BAG IV.CONT PRN (08:28)
[2017-12-05] MEDS: Nitroglycerin Drip Premix 50 MG/250 ML BOTTLE IV.CONT PRN ×2 (08:30→20:52)
[2017-12-05] MEDS: Morphine Inj 4 MG/ML Vial IV.PUSH PRN ×3 (08:41→15:59)
--- NOTE | 2017-12-05 08:43 | P.PNCA ---
Subjective Interval history: Pleasant 72 year old male resting in bed, at bedside. He reports that he developed mid epigastric pain on Tuesday after drinking a frappuccino. He followed up with his PCP the next day and had abdominal tenderness. CT abdomen was ordered for this week due to patients history of AAA stent. Patient reports on Tuesday while playing golf pain got worse and was unrelieved by heating pad so he came to ER. Upon arrival to ER Troponin was 1.18, second troponin 3.78, third pending. Patient has history of CABG with Dr. Gallegos in 2007. He reports he was pending Left and right groin reconstruction and angiogram with Dr. Franco on due to claudication. History of metastatic prostate CA which has been in remission for 14 months, currently on Xtandi, followed by Dr. Alvarez. Upon exam patient admits to mild substernal chest pain with rest. He continues on Nitro drip and heparin. Patient and want to proceed with heart cath. Risks discussed in detail. Patient and both fully appear to understand. Physical Exam Vital signs: Vital Signs 12/04/17 08:45 12/04/17 11:00 12/04/17 11:13 Temperature 98.4 F Pulse Rate 61 68 Respiratory Rate 25 H 16 Blood Pressure 178/85 H 142/66 H Pulse Oximetry 97 12/04/17 12:00 12/04/17 13:00 12/04/17 14:00 Temperature Pulse Rate 68 72 71 Respiratory Rate Blood Pressure Pulse Oximetry 12/04/17 15:00 12/04/17 16:00 12/04/17 17:00 Temperature 98.8 F Pulse Rate 77 74 79 Respiratory Rate 16 Blood Pressure 127/60 Pulse Oximetry 94 L 12/04/17 18:00 12/04/17 18:26 12/04/17 19:00 Temperature 98.7 F Pulse Rate 79 76 Respiratory Rate 16 Blood Pressure 116/56 L Pulse Oximetry 94 L 93 L 12/04/17 20:00 12/04/17 21:00 12/04/17 22:09 Temperature Pulse Rate 74 63 61 Respiratory Rate Blood Pressure Pulse Oximetry 93 L 12/04/17 23:00 12/05/17 00:00 12/05/17 01:00 Temperature 98.2 F Pulse Rate 79 61 61 Respiratory Rate 16 Blood Pressure 110/57 L Pulse Oximetry 97 07/09/18 02:00 12/05/17 03:00 12/05/17 04:37 Temperature 98.8 F Pulse Rate 64 60 60 Respiratory Rate 16 Blood Pressure 115/59 L Pulse Oximetry 97 12/05/17 05:00 12/05/17 06:33 Temperature Pulse Rate 60 60 Respiratory Rate Blood Pressure Pulse Oximetry Intake & Output 12/04/17 12/05/17 12/05/17 18:59 06:59 18:59 Intake Total 480 / 480 490 / 490 Output Total 300 / 300 Balance 480 / 480 190 / 190 Weight 91 kg Intake: IV 250 / 250 Nitroglycerin Drip Premix 50 mg 250 / 250 In 250 ml @ Per Protocol IV. CONT TITRATE PRN Rx#:[id number] Oral 480 / 480 240 / 240 Output: Urine 300 / 300 Other: # Voids 1 - Constitutional no acute distress - Routine HEENT Exam Head: Present: normocephalic Eye: Present: PERRL, normal accommodation ENT: Present: mucous membranes moist, mucous membranes dry - Routine Neck Exam Present: supple, full ROM - Routine Respiratory Exam Present: CTA bilaterally - Routine Cardiovascular Exam Present: RRR - Routine Abdominal Exam Present: soft - Routine Extremities Exam Comments: no edema, bilateral pedal pulses present - Routine Skin Exam Present: intact - Routine Neurological Exam Present: alert, oriented X3, moving all extremities - Routine Psychiatric Exam Present: normal affect, normal thought process Assessment and Plan - Plan Assessment Non-ST elevation myocardial infarction Coronary Artery disease with history of bypass with Dr. Ibrahim 2007 Metastatic Prostate Cancer Hypertension GERD Claudication AAA Plan Patient continues to have midsternal chest pain, on Nitro drip and heparin drip , Will plan to proceed with heart catheterization today. Patient and understand risks, including , stroke, OH, infection, bleeding, etc. Cancer is in remission-Patient follows with Dr. Alvarez. Has been in remission for 14 months. On Xtandi. Will discuss interaction with Plavix and Xtandi with Dr. Alvarez. BP controlled Patient follows with Dr. Franco, pending Left and right groin reconstruction and angiogram. The patient was seen and evaluated by Dr. Mohamud who completed face to face encounter and physical exam and participated in care, management and decision making. Code Status: Full Code Discussed Condition With: Nurse and
--- NOTE | 2017-12-05 09:54 | ECG ---
Date Performed: 12/04/2017 Time Performed: 16:47:50 PTAGE: 72 years EKG: Sinus rhythm . Lateral T wave changes are nonspecific Borderline ECG Since the PREVIOUS TRACING , no significant change noted PREVIOUS TRACIN12/04/2017 13.10 DOCTOR: Chris Light Interpretating Date/Time 12/05/2017 09:51:57
--- NOTE | 2017-12-05 09:54 | ECG ---
Date Performed: 12/04/2017 Time Performed: 13:10:32 PTAGE: 72 years EKG: Sinus rhythm . Lateral T wave changes are nonspecific Borderline ECG Since the PREVIOUS TRACING , no significant change noted PREVIOUS TRACIN12/04/2017 03.51 DOCTOR: Chris Light Interpretating Date/Time 12/05/2017 09:52:05
--- NOTE | 2017-12-05 10:58 | P.PNIM ---
Subjective Interval history: 72-year-old male with a medical history significant for coronary artery disease status post CABG in 2002, right carotid endarterectomy, peripheral artery disease, prostate cancer with bony metastasis presented to the emergency room with complaint of chest pain. The patient reported the chest pain started about 3 days ago. It involved his whole chest and back. He tried some icy hot without much relief. The pain became worse overnight which prompted the visit to the emergency room. He reports mild intermittent shortness of breath. He denies nausea or vomiting. He follows regularly with cardiology, Dr. Mohamud and oncologist is Dr. Alvarez. Workup in the emergency room is consistent with NSTEMI. 7-[address] MOHAMUD PATIENT IS SCHEDULED FOR CATH LATER TODAY DW RN AND PATIENT AND AM LABS INCREASE ACTIVITY TOMORROW AWAIT CATH Physical Exam Vital signs: Vital Signs 12/04/17 11:00 12/04/17 11:13 12/04/17 12:00 Temperature 98.4 F Pulse Rate 61 68 68 Respiratory Rate 16 Blood Pressure 142/66 H Pulse Oximetry 97 12/04/17 13:00 12/04/17 14:00 12/04/17 15:00 Temperature 98.8 F Pulse Rate 72 71 77 Respiratory Rate 16 Blood Pressure 127/60 Pulse Oximetry 94 L 12/04/17 16:00 12/04/17 17:00 12/04/17 18:00 Temperature Pulse Rate 74 79 79 Respiratory Rate Blood Pressure Pulse Oximetry 12/04/17 18:26 12/04/17 19:00 12/04/17 20:00 Temperature 98.7 F Pulse Rate 76 74 Respiratory Rate 16 Blood Pressure 116/56 L Pulse Oximetry 94 L 93 L 93 L 12/04/17 21:00 12/04/17 22:09 12/04/17 23:00 Temperature 98.2 F Pulse Rate 63 61 79 Respiratory Rate 16 Blood Pressure 110/57 L Pulse Oximetry 97 12/05/17 00:00 12/05/17 01:00 12/05/17 02:00 Temperature Pulse Rate 61 61 64 Respiratory Rate Blood Pressure Pulse Oximetry 12/05/17 03:00 12/05/17 04:37 12/05/17 05:00 Temperature 98.8 F Pulse Rate 60 60 60 Respiratory Rate 16 Blood Pressure 115/59 L Pulse Oximetry 97 12/05/17 06:33 12/05/17 07:00 12/05/17 08:00 Temperature 98.4 F Pulse Rate 60 70 72 Respiratory Rate 18 Blood Pressure 129/61 Pulse Oximetry 95 95 12/05/17 08:45 12/05/17 09:00 12/05/17 10:00 Temperature Pulse Rate 73 76 Respiratory Rate 18 Blood Pressure Pulse Oximetry Intake & Output 12/04/17 12/05/17 12/05/17 18:59 06:59 18:59 Intake Total 480 / 480 490 / 490 500 / 500 Output Total 300 / 300 Balance 480 / 480 190 / 190 500 / 500 Weight 91 kg Intake: IV 250 / 250 500 / 500 Heparin/D5W 25,000 U/250 mL 25, 250 / 250 000 unit In 250 ml @ Per Protocol IV.CONT TITRATE PRN Rx #:[id number] Nitroglycerin Drip Premix 50 mg 250 / 250 250 / 250 In 250 ml @ Per Protocol IV. CONT TITRATE PRN Rx#:[id number] Oral 480 / 480 240 / 240 Output: Urine 300 / 300 Other: # Voids 1 Narrative: GENERAL: AWAKE ALERT AND ORIENTED X3 TALKATIVE AND COOPERATIVE SKIN: Warm and dry. HEAD: Atraumatic. Normocephalic. EYES: Pupils equal and round. No scleral icterus. No injection or drainage. EOMI ENT: No nasal bleeding or discharge. Mucous membranes pink and moist.TONGUE MIDLINE NECK: Trachea midline. No JVD. SUPPLE CARDIOVASCULAR: Regular rate and rhythm. S1 S2 NO S3 OR S4 NO HEAVE OR THRILL RESPIRATORY: No accessory muscle use. Clear to auscultation. Breath sounds equal bilaterally. GASTROINTESTINAL: Abdomen soft, non-tender, nondistended. Hepatic and splenic margins not palpable. MUSCULOSKELETAL: Extremities without clubbing, cyanosis, or edema. No obvious deformities. NEUROLOGICAL: Awake and alert. No obvious cranial nerve deficits. Motor grossly within normal limits. Five out of 5 muscle strength in the arms and legs. Normal speech. PSYCHIATRIC: Appropriate mood and affect; insight and judgment normal. Results - Labs CBC & Chem 7: 12/05/17 05:00 12/05/17 05:00 Laboratory Results - last 24 hr 12/04/17 12/04/17 12/04/17 11:48 11:48 11:48 WBC 9.5 RBC 3.62 L Hgb 11.8 L Hct 34.4 L MCV 95.3 MCH 32.6 MCHC 34.3 RDW 13.8 Plt Count 407 MPV 8.1 Neut % (Auto) Lymph % (Auto) [place] % (Auto) Eos % (Auto) Baso % (Auto) Neut # (Auto) Lymph # (Auto) [place] # (Auto) Eos # (Auto) Baso # (Auto) WBC Differential Differential Comment PT 10.7 INR 1.1 APTT 48.0 H D Sodium Potassium Chloride Carbon Dioxide Anion Gap BUN Creatinine Estimated GFR Random Glucose Calcium Total Creatine Kinase 486 H CK-MB (CK-2) 45.3 H CK-MB (CK-2) % 9.3 H* Troponin I 3.78 H* 12/04/17 12/04/17 12/05/17 15:28 15:28 05:00 WBC 11.0 RBC 3.34 L Hgb 11.0 L Hct 31.9 L MCV 95.3 MCH 32.9 MCHC 34.6 RDW 13.5 Plt Count 376 MPV 8.2 Neut % (Auto) 62.8 Lymph % (Auto) 17.4 [place] % (Auto) 13.0 H Eos % (Auto) 5.9 H Baso % (Auto) 0.9 Neut # (Auto) 6.9 Lymph # (Auto) 1.9 [place] # (Auto) 1.4 H Eos # (Auto) 0.6 H Baso # (Auto) 0.1 WBC Differential . Differential Comment Auto diff final PT INR APTT 47.4 H Sodium Potassium Chloride Carbon Dioxide Anion Gap BUN Creatinine Estimated GFR Random Glucose Calcium Total Creatine Kinase 709 H CK-MB (CK-2) 65.0 H CK-MB (CK-2) % 9.2 H* Troponin I 12/05/17 12/05/17 05:00 05:00 WBC RBC Hgb Hct MCV MCH MCHC RDW Plt Count MPV Neut % (Auto) Lymph % (Auto) [place] % (Auto) Eos % (Auto) Baso % (Auto) Neut # (Auto) Lymph # (Auto) [place] # (Auto) Eos # (Auto) Baso # (Auto) WBC Differential Differential Comment PT INR APTT 41.2 H Sodium 136 Potassium 3.9 Chloride 103 Carbon Dioxide 24.6 Anion Gap 8 BUN 22 H Creatinine 1.03 Estimated GFR 71 L Random Glucose 122 H Calcium 8.4 L Total Creatine Kinase CK-MB (CK-2) CK-MB (CK-2) % Troponin I Assessment and Plan - Assessment (1) Non-ST elevation (NSTEMI) myocardial infarction Code(s): I21.4 - Non-ST elevation (NSTEMI) myocardial infarction Status: Acute Plan: History of CAD and CABG in 2002. Cardiology consulted. Patient started on heparin drip. Morphine as needed. On Coreg and lisinopril. Nitro as needed. CARDIAC CATH LATER TODAY (2) Prostate cancer metastatic to bone Code(s): C61 - Malignant neoplasm of prostate; C79.51 - Secondary malignant neoplasm of bone Status: Acute Plan: Follows with Dr. Alvarez outpatient. He has metastases to the spine but states he has not had much problem with pain. He has been stable on his current regimen or Xtandi and Lupron. (3) Hypertension Code(s): I10 - Essential (primary) hypertension Status: Chronic Plan: Continue lisinopril, amlodipine (4) GERD (gastroesophageal reflux disease) Code(s): K21.9 - Gastro-esophageal reflux disease without esophagitis Status: Acute Plan: Continue omeprazole (5) PAD (peripheral artery disease) Code(s): I73.9 - Peripheral vascular disease, unspecified Status: Acute Plan: Involving the left leg. Patient reports he is scheduled for surgery next week with Dr. Franco. Will need outpatient follow-up. Advised patient and his to discuss with cardiology regarding proper timing of surgery. - Plan FOR CARDIAC CATHETERIZATION TODAY DW RN AND PATIENT Code Status: FULL CODE Discussed Condition With: RN AND PATIENT AND Discharge Planning: PENDING CARDIAC CLEARANCD
--- NOTE | 2017-12-05 14:49 | CATHPROC ---
Outsell HIS Report Study Information Study Number Admission Scheduled Start Study Start [id number] Dec 04 2017 6:40AM 12/05/2017 Dec 05 2017 12:44PM [facility] Cardiac Catheterization Admit Source Facility Department Emergency department [facility] Phys[facility] and Clinical Staff Initial Yasmine Sarabia Advanced Practice Psychiatric Nurse Diomedes LEE, Adrian Recorder Misty Maria ,BSN Scrub Ari Greenberg,RT(R) Procedures Performed Procedure Location (Site) Vessel Name Angiogram LV Iliac L. Com. (L4) [place] Art. Coronary Angiograms LCA Left Coronary Coronary Angiograms RCA Right Coronary Coronary Angiograms COFFEY Graft Left Coronary Coronary Angiograms SVG-OM 2 CIRC Coronary Angiograms SVG-RCA Right Coronary L Heart Cath Wire insertion Fem Art (left) Femoral Art Equipment Time Wire Charger Description Size Mfg Part Number Used/Scraped TRANSDUCER, TRUWAVE [id number] 12:45 [employer] SMITH * Used W/STOCKCOCK *[id number] INTRODUCER SET, 12:45 [employer] FR 5 [id number] *[id number] Used MICROPUNCTURE STIFF 538-460 *[id number] 538-420 *[id number] 538-422 *[id number] 538-421 *[id number] [id number] *[id number] WIRE, HYDROSTEER 150CM [id number] 13:40 DAIG/[employer]. Y[employer]IL [employer] 150CM Used ANGLED GLIDE *[id number] 12:45 [employer]x BLANKET,WARM AIR CCL * Used *[id number] 12:45 [employer] PACK, CCL CUSTOM * Used *[id number] 12:45 [employer] PACER PEN, SKIN DUAL W/ RULER * Used *[id number] 12:45 [employer] WIRE, 3MMJ .035 180CM 180CM Used *[id number] 13:56 [employer] MEDICAL WIRE, EXCHANGE 260CM 3MMJ 260CM Used *[id number] PROBE COVER, STERILE [id number] 12:45 Outsell * Used ULTRASOUND W/ GEL *[id number] 12:45 NAMIC MANIFOLD, 4 PORT * Used *[id number] 12:45 NYCOMED OMNIPAQUE, 350 MG, 150ML 150ML [id number] Used [id number] 12:45 TERUMO MEDICAL SHEATH, FR4 TERUMO (10CM) FR 4 Used *[id number] 14:02 [employer] MEDICAL SHEATH, FR6 TERUMO (25CM) FR 6 Used *[id number] History: Current Medications Medication Dosage/Unit Route Frequency Last Date/Time Taken Beta Keegan 12/05/2017 History: Allergies Allergy Reaction aspirin Abdominal Pain CRESTOR Lipitor rash prednisone Muscle Pain Sulfa Rash IRENE Swelling Sulfa (Sulfonamide Antibiotics) Rash atorvastatin rash rosuvastatin Muscle Pain History: Risk Factors Family History of Hypertension Dyslipidemia Previous OH Previous Heart Failure Premature CAD Yes Yes No No No Prior Valve Prior PCI Prior CABG Prior CABGDate Surgery No No Yes 06/30/2002 Cerebrovascular Peripheral Artery Chronic Lung On Dialysis Diabetes Disease Disease Disease No No Yes Yes No History: Symptoms/Diagnosis Selection Items Chest pain History: CV Disease Selection Items Known CAD History: Stress Tests Stress or Imaging Studies Performed No History: OH/CV Data Previous CABG Date 06/30/2002 History: Other Current Smoker Method Quit Packs a Day Years Used Pack Years No Cigarettes 28 Years Ago 1 20 20 Labs Hgb (g/dl) Hct (%) WBC (l/cumm) Platelets (thousands) 11.60-17.00 35.00-51.00 4.00-11.00 150.00-450.00 11.0 31.9 11 376 Glucose (mg/dl) BUN (mg/dl) Creatinine (mg/dl) BUN:Creatinine (1:x) 74.00-106.00 7.00-18.00 0.50-1.30 10.00-20.00 122 22 1.0 22 Na (meq/l) K (meq/l) 136.00-145.00 3.50-5.10 136 3.9 INR (PTT:PT) 0.90-1.10 1.1 Troponin I (ng/ml) CPK (u/l) CPK-MB (ng/ML) 0.02-0.05 26.00-308.00 0.50-3.60 3.78 709 65.0 Medication Medication Total Dose (Bolus/Oral) Medication Total Dosage/Unit 1% XYLOCAINE 10 mL FENTANYL 100 mcg OXYGEN 2 l/min VERSED 4 mg Medications (Bolus/Oral) Medication Time Given Dosage/Unit Administered By Reason 1% XYLOCAINE 12/05/2017 1:27:10 PM 10 mL Yasmine Mohamud 10 mL 1% XYLOCAINE given in lab by Yasmine Mohamud in Left Groin via Subcutaneous. Ordered by Yasmine Mercer. VERSED 12/05/2017 1:27:52 PM 2 mg Adrian Hercules RN 2 mg VERSED given in lab by Adrian Hercules RN via Peripheral IV. Ordered by Yasmine Mohamud. FENTANYL 12/05/2017 1:28:00 PM 50 mcg Adrian Hercules RN 50 mcg FENTANYL given in lab by Adrian Hercules RN via Peripheral IV. Ordered by Yasmine Mohamud. OXYGEN 12/05/2017 1:35:12 PM 2 l/min Adrian Hercules RN 2 l/min OXYGEN given in lab by Adrian Hercules RN via Nasal. Ordered by Yasmine Mohamud. VERSED 12/05/2017 1:45:40 PM 1 mg Adrian Hercules RN 1 mg VERSED given in lab by Adrian Hercules RN via Peripheral IV. Ordered by Yasmine Mohamud. VERSED 12/05/2017 2:08:10 PM 1 mg Adrian Hercules RN 1 mg VERSED given in lab by Adrian Hercules RN via Peripheral IV. Ordered by Yasmine Mohamud. FENTANYL 12/05/2017 2:09:23 PM 25 mcg Adrian Hercules RN 25 mcg FENTANYL given in lab by Adrian Hercules RN via Peripheral IV. Ordered by Yasmine Mohamud. FENTANYL 12/05/2017 2:27:42 PM 25 mcg Adrian Hercules RN 25 mcg FENTANYL given in lab by Adrian Hercules RN via Peripheral IV. Ordered by Yasmine Mohamud. Medication (Drip) Medication Time Given Dosage/Unit Concentration/Unit Diluent (ml) Solution HEPARIN DRIP STOPPED 12/05/2017 12:45:41 PM 1200 units/hr 0 D5W Patient arrived on 1200 units/hr HEPARIN DRIP STOPPED. Pump/Drip Flow = 0 ml/hr using D5W. IV Solutions 12/05/2017 1:06:54 PM 50 mL (IV) NaCl .9 IV Solutions given in lab by Adrian Hercules RN via Peripheral IV. Pump/Drip Flow using NaCl .9. Ordered by Yasmine Mohamud. at KVO NITROGLYCERIN DRIP 12/05/2017 1:06:21 PM 70 mcg/min 50 mg 250 D5W Patient arrived on 70 mcg/min NITROGLYCERIN DRIP via Peripheral IV. Pump/Drip Flow = 21 ml/hr using D 5W with a concentration of 50 mg in 250 ml. Initial Case Assessment Cardiovascular HR Rhythm NIBP Chest Pain [address] 156/74 5 Edema Present Skin color Skin None Normal Warm Dry Circulatory - Right Pulses Dorsalis Pedis Femoral 1 2 Scale (0,1,2,3,4,d) Circulatory - Left Pulses Dorsalis Pedis Femoral 1 2 Scale (0,1,2,3,4,d) Circulatory - Lower Extremities Color Lower Right Color Lower Left Normal Normal Neurological State Oriented to time-place- Alert Moves all extremities person Respiration - General Respiration Rate SpO2 (%) (B/min) 19 93 Final Case Assessment Cardiovascular HR Rhythm NIBP Chest Pain [address] st 134/68 0 Edema Present Skin color Skin None Normal Warm Dry Circulatory - Right Pulses Dorsalis Pedis Femoral 1 2 Scale (0,1,2,3,4,d) Circulatory - Left Pulses Dorsalis Pedis Femoral 1 2 Scale (0,1,2,3,4,d) Circulatory - Lower Extremities Color Lower Right Color Lower Left Normal Normal Neurological State Oriented to time-place- Alert Moves all extremities person Respiration - General Respiration Rate SpO2 (%) O2 (lpm) (B/min) 15 95 2 Chronological Log Time Study Chronological Log 12:45:41 Patient arrived on 1200 units/hr HEPARIN DRIP STOPPED. Pump/Drip Flow = 0 ml/hr using D5W. 12:54:55 Patient arrived via Bed. 12:55:03 Patient Name, D.O.B, / Armband Verified By R.N. 12:55:06 Consent signed by the physician and the patient and verified by the [facility] staff. 12:57:10 Pre-op and post- op instructions given; patient acknowledges understanding of instructions. 12:57:15 Patient has been NPO for More than 6Hrs. 12:57:15 Skin Breakdown- none per patient 12:57:25 Alejandra Prominences Protected 12:57:26 A Port IV was noted in the R Upper Chest. Vitals capture started with the following parameters, Patient=Adult, Interval=5 min, Initial Pr fmdqyi=609 mmHg, 13:00:22 Deflation Rate=5 mmHg, Cuff placed on Right Arm 13:01:35 SQ=180 bpm, NEII=397/74 mmhg, SpO2=93.0 %, Resp=19 B/min, Pain=5, Anabell=10, Hernandez=2 Assessment: Initial Case, JQ=621 BPM, Rhythm=st, DHDW=621/74 mmhg, Chest Pain=5, Edema=None, Co jenna=Normal, Skin = Warm, Dry Right Pulses: Santiago Ped=1, Femoral=2 Left Pulses: Snatiago Ped=1, Femoral=2 13:02:10 Lower Right Extremities: Color=Normal Lower Left Extremities: Color=Normal Neurological: State=Alert, Ox3, BURRIS Respiration: Resp=19 B/min, SpO2=93 % 13:05:39 A # 20 IV was noted in the Antecubital (left). Grade = 0 13:06:05 HR=68 bpm, SVJC=461/66 mmhg, SpO2=93.0 %, Resp=13 B/min, Pain=5, Anabell=10, Hernandez=2 Patient arrived on 70 mcg/min NITROGLYCERIN DRIP via Peripheral IV. Pump/Drip Flow = 21 ml/hr u sing D5W with a 13:06:21 concentration of 50 mg in 250 ml. IV Solutions given in lab by Adrian Hercules RN via Peripheral IV. Pump/Drip Flow using NaCl .9. O rdered by Oneida, 13:06:54 Yasmine. at KVO 13:11:00 HR=70 bpm, BDIX=328/79 mmhg, SpO2=89.0 %, Resp=15 B/min, Pain=5, Anabell=10, Hernandez=2 13:13:47 History and physical on the chart or being dictated. 13:15:30 Bilateral groins prepped with 2% chlorhexidine, and draped after a 3 minute waiting time. 13:16:01 Reference ECG taken 13:16:03 HR=69 bpm, UZMB=125/64 mmhg, SpO2=94.0 %, Resp=18 B/min, Pain=5, Anabell=10, Hernandez=2 13:16:04 Pressure channel 1 zeroed. 13:17:23 MD paged 13:19:18 MD arrived. 13:21:04 HR=68 bpm, LMUA=306/68 mmhg, SpO2=90.0 %, Resp=12 B/min, Pain=5, Anabell=10, Hernandez=2 13:26:03 HR=70 bpm, JASR=445/59 mmhg, SpO2=94.0 %, Resp=11 B/min Time Out. Correct patient, correct procedure, correct physician, labs, allergies, and equipment verified with bundle tier and labeler 13:26:16 team present. Fire risk assesment completed (see hard stop sheet for coding). Time Out Conc urred by MD and individual staff in procedure. 13:26:52 Case Start 10 mL 1% XYLOCAINE given in lab by Yasmine Mohamud in Left Groin via Subcutaneous. Ordered by Oneida 13:27:10 Robbiayun. 13:27:52 2 mg VERSED given in lab by Adrian Hercules RN via Peripheral IV. Ordered by Yasmine Mohamud. 13:28:00 50 mcg FENTANYL given in lab by Adrian Hercules RN via Peripheral IV. Ordered by Sharmila Mohamud. 13:31:02 HR=72 bpm, ZLUF=676/53 mmhg, SpO2=93.0 %, Resp=15 B/min 13:35:12 2 l/min OXYGEN given in lab by Adrian Hercules RN via Nasal. Ordered by Yasmine Mohamud. 13:36:03 HR=68 bpm, LOJT=629/51 mmhg, SpO2=95.0 %, Resp=14 B/min 13:36:33 Access site was Left Femoral Artery. A INTRODUCER SET, MICROPUNCTURE STIFF FR 5 was advanced into the Fem Art (left) using the Sohail hernandez 13:37:02 technique. A SHEATH, FR4 TERUMO (10CM) FR 4 was exchanged in the Fem Art (right). This was necessary in or katlin to 13:37:53 accomodate a larger catheter. 13:38:30 A WIRE, 3MMJ .035 180CM 180CM was inserted via Fem Art (left). 13:39:54 Wire removed 13:40:17 The Iliac L. Com. (L4) was injected at 10 cc/sec for a total of 10. OMNIPAQUE, 350 MG, 150M L 150ML used. 13:41:37 HR=69 bpm, INOL=265/61 mmhg, SpO2=96.0 %, Resp=13 B/min 13:41:57 The previous wire was exchanged for a WIRE, HYDROSTEER 150CM ANGLED GLIDE 150CM. A JR 4.0 INFINITI CATHETER FR 4 was advanced over a wire. OMNIPAQUE, 350 MG, 150ML 150ML was us ed for 13:43:02 injections. 13:43:42 The RCA was injected and visualized at various angles. OMNIPAQUE, 350 MG, 150ML 150ML used . 13:44:30 The SVG-OM 2 was injected and visualized at various angles. OMNIPAQUE, 350 MG, 150ML 150ML used. 13:45:40 1 mg VERSED given in lab by Adrian Hercules RN via Peripheral IV. Ordered by Yasmine Mohamud. 13:46:01 HR=73 bpm, SWJH=433/67 mmhg, SpO2=97.0 %, Resp=14 B/min 13:46:52 The SVG-RCA was injected and visualized at various angles. OMNIPAQUE, 350 MG, 150ML 150ML u sed. 13:47:23 The SVG-OM 2 was injected and visualized at various angles. OMNIPAQUE, 350 MG, 150ML 150ML used. 13:50:23 A WIRE, 3MMJ .035 180CM 180CM was inserted via Fem Art (left). 13:51:03 Wire removed 13:51:07 HR=72 bpm, ABJZ=286/52 mmhg, SpO2=97.0 %, Resp=16 B/min 13:52:57 A WIRE, 3MMJ .035 180CM 180CM was inserted via Fem Art (left). 13:54:31 Wire removed 13:56:02 HR=69 bpm, EFYK=370/61 mmhg, SpO2=98.0 %, Resp=15 B/min Recorded Pressure: Ao, HR=69, Condition=Condition 1 13:56:08 (Aorta) Ao 101/52/72 13:57:14 A WIRE, EXCHANGE 260CM 3MMJ 260CM was inserted via Fem Art (left). After removing the current catheter a IM INFINITI CATHETER FR 4 was advanced over a WIRE, EXCHA NGE 260CM 13:57:59 3MMJ 260CM. 14:00:16 The COFFEY Graft was injected and visualized at various angles. OMNIPAQUE, 350 MG, 150ML 150M L used. 14:01:42 HR=66 bpm, KESZ=943/65 mmhg, SpO2=99.0 %, Resp=15 B/min 14:03:31 Catheter was removed 14:06:04 HR=72 bpm, XVCH=732/73 mmhg, LkI9=357.0 %, Resp=15 B/min 14:08:10 1 mg VERSED given in lab by Adrian Hercules RN via Peripheral IV. Ordered by Yasmine Mohamud. 14:09:23 25 mcg FENTANYL given in lab by Adrian Hercules RN via Peripheral IV. Ordered by Sharmila Mohamud. 14:11:11 HR=73 bpm, TDDH=375/67 mmhg, SpO2=97.0 %, Resp=14 B/min, Pain=0, Anabell=10, Hernandez=2 After removing the current catheter a JL 5.0 INFINITI CATHETER FR 4 was advanced over a WIRE, 3 MMJ .035 180CM 14:11:30 180CM. 14:13:13 The LCA was injected and visualized at various angles. OMNIPAQUE, 350 MG, 150ML 150ML used . 14:16:08 HR=69 bpm, LRIA=830/59 mmhg, SpO2=97.0 %, Resp=18 B/min, Pain=0, Anabell=10, Hernandez=2 After removing the current catheter a PIGTAIL ANG. INFINITI CATHETER FR 4 was advanced over a W LIEN, 3MMJ .035 14:18:32 180CM 180CM. 14:21:01 HR=71 bpm, DQYE=479/68 mmhg, SpO2=97.0 %, Resp=16 B/min 14:21:01 Catheter was removed 14:21:24 Case End (Physician broke scrub) Assessment: Final Case, HR=73 BPM, Rhythm=st, YTCT=111/68 mmhg, Chest Pain=0, Edema=None, Color =Normal, Skin = Warm, Dry Right Pulses: Santiago Ped=1, Femoral=2 Left Pulses: Santiago Ped=1, Femoral=2 14:22:56 Lower Right Extremities: Color=Normal Lower Left Extremities: Color=Normal Neurological: State=Alert, Ox3, BURRIS Respiration: Resp=15 B/min, SpO2=95 %, O2=2 lpm 14:23:22 No case complications noted. 14:23:24 Cine recording checked. 14:23:26 Bedside Report will be given. 14:23:33 A Left Heart Cath was performed. 14:23:42 Activated Clotting Time Drawn 14:26:00 ACT (Normal Range 90-180) = 125 14:26:04 HR=69 bpm, WWKQ=078/68 mmhg, SpO2=97.0 %, Resp=15 B/min 14:26:52 Sheath removed; pressure applied to access site. 14:27:42 25 mcg FENTANYL given in lab by Adrian Hercules RN via Peripheral IV. Ordered by Robbi Mohamud. 14:31:07 HR=79 bpm, BRQS=922/72 mmhg, SpO2=91.0 %, Resp=15 B/min 14:36:37 HR=80 bpm, SAGC=109/70 mmhg, SpO2=94.0 %, Resp=20 B/min 14:40:19 Sterile dressing applied to site 14:41:07 HR=68 bpm, HIEM=643/71 mmhg, SpO2=94.0 %, Resp=13 B/min 14:46:25 Patient moved to [facility] End Study - Contrast Media Used In Study Contrast Total Opened (mL) Total Used (mL) Total Wasted (mL) Omnipaque 90 90 0 End Study - Maximum Contrast Load Max Contrast Load (mL) 455.0 End Study - Radiation Exposure Fluoro Time (minutes) 15.5 End Study - Sheaths Sheaths Pulled By Sheath Hold Time (min) Ari Greenberg 15 End Study - Patient Disposition Complications Transferred To Telemetry Bed
--- NOTE | 2017-12-05 15:28 | MA ---
cc: Yasmine Mohamud MD DATE: 12/05/2017 INDICATIONS FOR CATHETERIZATION: 1. Wtd-NC-zvaelvkdp myocardial infarction. 2. Acute coronary chest pain, worse over the last week. CONSENT: Fully informed consent was obtained prior to the procedure. The risks of , bleeding, myocardial infarction, perforation, aspiration, foreseen and unforeseen complications were reviewed. The patient appeared to fully understand the risks. PROCEDURE: 1. Sedation. 2. Left heart catheterization. 3. Saphenous vein graft. 4. Internal mammary. 5. LV not done. 6. Femoral angiogram. PROCEDURAL STATEMENT: The patient was draped and prepped in the usual manner. The right femoral artery was non-palpable. The left femoral artery had a weak pulse. Using ultrasound and micropuncture technique with moderate difficulty, the left femoral artery was accessed. A sheath angiogram was carried out which showed a severe stenosis of the left iliofemoral region of about 90%. With moderate difficulty it was possible to pass a 4-Czech catheter past the stenosis and catheterization was begun. Using a Jeri right coronary catheter, the right coronary was accessed as was the saphenous vein graft to the right coronary, the saphenous vein graft to the obtuse marginal 1 and the saphenous vein graft to the obtuse marginal 2. The saphenous vein graft to the obtuse marginal 1 was occluded with evidence of dye staining suggesting this was the non-STEMI ACS causing stenosis that was at least 3-4 days old given the history. The left internal mammary catheter was used to intubate the left internal mammary artery. A pigtail catheter was hung up in the left femoral artery and would not pass the aortic valve easily. Following this, all catheters and sheaths were removed. Manual pressure was applied until good hemostasis achieved and the patient taken to his room in stable condition. FINDINGS: I. HEMODYNAMICS: The aortic pressure was 101/52 with a mean of 72. LV gram was not done. The LV was not entered. II. CORONARY ARTERIES: The left main had a diffuse 40% stenosis. The LAD had a further 50% stenosis. There was evidence of competitive flow in the mid-LAD with evidence of flow via a patent left internal mammary graft via the left injection. There was a large septal weaver hand. The first diagonal branch was small. The second diagonal branch was medium to large. The third diagonal branch was small. The The circumflex artery was totally occluded proximally. The right coronary artery was a dominant vessel. It was totally occluded in its midsection. In the proximal third there were also 2 further 99% stenoses. III. VEIN GRAFTS: Vein graft to the OM2 had a 60% stenosis in its midsection. Vein graft to the OM1 was totally occluded with dye staining. Vein graft to the right coronary artery was a widely patent graft with excellent anastomosis at the distal right. There is moderate disease in the right coronary which is diffusely diseased. At the ostium of the posterolateral branch was 60% stenosis. There was a further tiny branch of the posterolateral branch that had a 90% stenosis at its ostium. The internal mammary artery was a widely patent graft with an excellent anastomosis to the LAD. At the right femoral iliac junction there was evidence of a 90% highly diseased lesion. CONCLUSION: Evidence of significant three-vessel coronary artery disease with patent three grafts out of four, 60% stenosis of the vein graft to the obtuse marginal 2, 100% occlusion of the obtuse marginal 1 which is acute coronary system-causing lesion. Given the access difficulties, the greater than 24 hours since the patient presented with the acute chest pains, and non-ST elevation myocardial infarction, the fact that the patient would need Plavix, Brilinta, etc., which there is a strong contraindication with his metastatic prostate cancer medications, feel that we should proceed with medical management at this time. RECOMMENDATIONS: The patient will be discharged in due course and will followup in my office in 1-2 weeks. Plan continued medical management. MD EZEKIEL Francis/RICO , 02:53 PM , 03:26 PM
[2017-12-05] MEDS: [UNRECOGNIZED DRUG - OTHER] PO SCH (16:02)
[2017-12-05] MEDS: XTANDI PO SCH (16:02)
[2017-12-05] MEDS: Acetaminophen 325 MG Tablet PO PRN ×2 (16:40→20:50)
[2017-12-05] MEDS ORDERED: Iohexol 350 MG/ML 100 ML Vial (for Cath Lab) IVCONTRAST ONE (17:00)
--- NOTE | 2017-12-05 17:52 | ECHRPT ---
Indication: CHEST PAIN CONCLUSIONS The left ventricular systolic function is normal with an estimated ejection fraction in the range of 60-65%. Doppler parameters are consistent with impaired left ventricular relaxtion (grade 1 diastolic dysfun ction). Trace mitral valve regurgitation. Trivial pulmonary valve regurgitation. BP: / HR: Rhythm: Sinus MEASUREMENTS (Male / Female) Normal Values Technical Quality:Good 2D ECHO LV Diastolic Diameter PLAX 5.0 cm 4.2 - 5.9 / 3.9 - 5.3 cm LV Systolic Diameter PLAX 3.4 cm IVS Diastolic Thickness 1.1 cm 0.6 - 1.0 / 0.6 - 0.9 cm LVPW Diastolic Thickness 1.1 cm 0.6 - 1.0 / 0.6 - 0.9 cm LV Relative Wall Thickness 0.5 RV Internal Dim ED PLAX 2.7 cm LVOT Diameter 2.0 cm LA Systolic Diameter LX 3.1 cm 3.0 - 4.0 / 2.7 - 3.8 cm LV Ejection Fraction MOD 4C 62.5 % LV Ejection Fraction 4C AL 63.8 % M-MODE Aortic Root Diameter MM 2.8 cm LA Systolic Diameter MM 3.5 cm LA Ao Ratio MM 1.3 AV Cusp Separation MM 1.8 cm DOPPLER AV Peak Velocity 102.0 cm/s AV Peak Gradient 4.2 mmHg LVOT Peak Velocity 84.9 cm/s LVOT Peak Gradient 2.9 mmHg AV Area Cont Eq pk 2.6 cm MV Area PHT 2.7 cm Mitral E Point Velocity 63.2 cm/s Mitral A Point Velocity 84.9 cm/s Mitral E to A Ratio 0.7 LV E' Lateral Velocity 9.6 cm/s Mitral E to LV E' Lateral Ratio 6.6 LV E' Septal Velocity 7.0 cm/s Mitral E to LV E' Septal Ratio 9.0 FINDINGS LEFT VENTRICLE The left ventricular systolic function is normal with an estimated ejection fraction in the range of 60-65%. Normal left ventricular size. Wall thickness is measured at the upper limits of normal. No regional wall motion abnormalities are present. Doppler parameters are consistent with impaired left ventricular relaxtion (grade 1 diastolic dysfun ction). RIGHT VENTRICLE Normal right ventricular size and systolic function. LEFT ATRIUM The left atrial size is normal. RIGHT ATRIUM The right atrial size is normal. ATRIAL SEPTUM Normal atrial septal thickness AORTA The aortic root and proximal ascending aorta are normal in size on limited imaging. MITRAL VALVE Structurally normal mitral valve. Trace mitral valve regurgitation. Mild mitral annular calcification. No mitral valve stenosis. AORTIC VALVE Trileaflet aortic valve. No aortic valve stenosis or regurgitation. TRICUSPID VALVE Structurally normal tricuspid valve. No tricuspid valve stenosis or regurgitation. PULMONARY VALVE Trivial pulmonary valve regurgitation. VESSELS The inferior vena cava is normal in size. PERICARDIUM No pericardial effusion. Hansel Sauer DO (Electronically Signed) Final Date:05 December 2017 17:51
[2017-12-06] MEDS: Acetaminophen 325 MG Tablet PO PRN (04:57)
[2017-12-06 08:04] LABS: Baso # (Auto) 0.1 th/mm3 (0.0-0.2); Baso % (Auto) 0.6 % (0.0-2.0); Eos # (Auto) 0.4 th/mm3 (0.0-0.4); Eos % (Auto) 3.1 % (0.0-4.0); Hematocrit 32.5 % (39.0-51.0); Hemoglobin 11.2 gm/dL (13.0-17.0); Lymph # (Auto) 1.3 th/mm3 (1.0-4.8); Lymph % (Auto) 10.6 % (9.0-44.0); Mean Corpuscular HGB Conc 34.4 % (32.0-36.0); Mean Corpuscular Hemoglobin 32.7 pg (27.0-34.0); Mean Corpuscular Volume 95.2 fL (80.0-100.0); Mean Platelet Volume 8.3 fL (7.0-11.0); Mono # (Auto) 1.8 th/mm3 (0.0-0.9); Mono % (Auto) 14.6 % (0.0-8.0); Neut # (Auto) 8.9 th/mm3 (1.8-7.7); Neut % (Auto) 71.1 % (16.0-70.0); Platelet Count 352 th/mm3 (150-450); Red Blood Count 3.42 mil/mm3 (4.50-5.90); Red Cell Distribution Width 13.5 % (11.6-17.2); White Blood Count 12.5 th/mm3 (4.0-11.0)
[2017-12-06 08:06] LABS: Prothrombin Time 10.4 sec (9.8-11.6)
[2017-12-06] MEDS: Budesonide-Formoterol 160/4.5 MCG 6 GM Inhaler INH SCH ×2 (08:06→21:39)
[2017-12-06] MEDS: Levothyroxine 100 MCG Tablet PO SCH (08:06)
[2017-12-06 08:32] LABS: Albumin 3.1 g/dL (3.4-5.0); Anion Gap 7 meq/L (5-15); Aspartate Aminotransferase 70 U/L (15-37); Blood Urea Nitrogen 11 mg/dL (7-18); Calcium 7.6 mg/dL (8.5-10.1); Carbon Dioxide 25.7 meq/L (21.0-32.0); Chloride 106 meq/L (98-107); Glomerular Filtration Rate 89 mL/min (>89); Glucose,Random 112 mg/dL (74-106); Magnesium 2.1 mg/dL (1.5-2.5); Sodium 139 meq/L (136-145)
[2017-12-06 08:37] LABS: Alanine Aminotransferase 23 U/L (12-78); Alkaline Phosphatase 41 U/L (45-117); Free T4 (Free Thyroxine) 1.03 ng/dL (0.76-1.46); Phosphorus 2.6 mg/dL (2.5-4.9); Total Protein 6.5 g/dL (6.4-8.2)
[2017-12-06] MEDS ORDERED: Lisinopril 10 MG Tablet PO SCH (09:15)
--- NOTE | 2017-12-06 10:04 | P.PNCA ---
Subjective Interval history: Patient is sitting on edge of bed this AM eating breakfast. is at bedside. Patient denies chest pain. Reports feeling better this AM. Continues on Nitro drip, weaning down. Groin is healing well, no erythema or signs of infection. Physical Exam Vital signs: Vital Signs 12/05/17 10:00 12/05/17 11:00 12/05/17 11:50 Temperature 98.2 F Pulse Rate 76 66 69 Respiratory Rate 18 Blood Pressure 109/54 L Pulse Oximetry 96 12/05/17 12:15 12/05/17 15:00 12/05/17 16:00 Temperature 98.6 F Pulse Rate 80 73 Respiratory Rate 18 18 Blood Pressure 142/73 H Pulse Oximetry 95 12/05/17 16:05 12/05/17 16:54 12/05/17 17:35 Temperature Pulse Rate 73 83 Respiratory Rate 18 Blood Pressure Pulse Oximetry 12/05/17 19:00 12/05/17 21:00 12/05/17 22:00 Temperature 99.1 F Pulse Rate 79 72 75 Respiratory Rate Blood Pressure 125/60 Pulse Oximetry 94 L 12/05/17 23:00 12/06/17 00:00 12/06/17 01:00 Temperature 98.6 F Pulse Rate 75 64 64 Respiratory Rate Blood Pressure 125/58 L Pulse Oximetry 95 12/06/17 02:00 12/06/17 03:00 12/06/17 04:00 Temperature 98.4 F Pulse Rate 67 76 76 Respiratory Rate Blood Pressure 182/77 H Pulse Oximetry 93 L 12/06/17 05:00 12/06/17 06:00 Temperature Pulse Rate 75 72 Respiratory Rate Blood Pressure Pulse Oximetry Intake & Output 12/05/17 12/06/17 12/06/17 18:59 06:59 18:59 Intake Total 890 / 890 697 / 697 Output Total 500 / 500 1100 / 1100 Balance 390 / 390 -403 / -403 Weight 90 kg Intake: IV 550 / 550 337 / 337 Heparin/D5W 25,000 U/250 mL 25, 300 / 300 000 unit In 250 ml @ Per Protocol IV.CONT TITRATE PRN Rx #:[id number] Nitroglycerin Drip Premix 50 mg 250 / 250 337 / 337 In 250 ml @ Per Protocol IV. CONT TITRATE PRN Rx#:[id number] Oral 340 / 340 360 / 360 Output: Urine 500 / 500 1100 / 1100 Other: # Bowel Movements 0 - Constitutional no acute distress - Routine HEENT Exam Head: Present: normocephalic, atraumatic Eye: Present: PERRL, normal accommodation - Routine Neck Exam Present: supple - Routine Respiratory Exam Present: CTA bilaterally - Routine Cardiovascular Exam Present: RRR - Routine Abdominal Exam Present: soft, normoactive bowel sounds - Routine Extremities Exam Present: full ROM, pulses intact, normal capillary refill Comments: left groin dressing removed. No erythema. - Routine Skin Exam Present: intact - Routine Neurological Exam Present: alert, oriented X3 - Routine Psychiatric Exam Present: normal affect, normal thought process Assessment and Plan - Plan Assessment Non-ST elevation myocardial infarction Coronary Artery disease with history of bypass with Dr. Ibrahim 2007 Metastatic Prostate Cancer Hypertension GERD Claudication AAA Plan Status post cardiac catheterization with medical management recommended. Groin healing well. Will start on Imdur. Pt reports allergy to Aspirin and statin. Cancer is in remission-Patient follows with Dr. Alvarez. Has been in remission for 14 months. On Xtandi. Will discuss interaction with Plavix and Xtandi with Dr. Alvarez. BP elevated this AM. Will resume home lisinopril and amlodipine. Patient follows with Dr. Franco, pending Left and right groin reconstruction and angiogram. The patient was seen and evaluated by Dr. Mohamud who completed face to face encounter and physical exam and participated in care, management and decision making. Code Status: Full Code Discussed Condition With: Nurse and
[2017-12-06] MEDS: amLODIPine 5 MG Tablet PO SCH (10:36)
[2017-12-06] MEDS: Pantoprazole Sodium 20 MG DR Tablet PO SCH (10:40)
--- NOTE | 2017-12-06 10:46 | P.PNIM ---
Subjective Interval history: 72-year-old male with a medical history significant for coronary artery disease status post CABG in 2002, right carotid endarterectomy, peripheral artery disease, prostate cancer with bony metastasis presented to the emergency room with complaint of chest pain. The patient reported the chest pain started about 3 days ago. It involved his whole chest and back. He tried some icy hot without much relief. The pain became worse overnight which prompted the visit to the emergency room. He reports mild intermittent shortness of breath. He denies nausea or vomiting. He follows regularly with cardiology, Dr. Mohamud and oncologist is Dr. Alvarez. Workup in the emergency room is consistent with NSTEMI. 12-[address] MOHAMUD PATIENT IS SCHEDULED FOR CATH LATER TODAY CHRIS RN AND PATIENT AND AM LABS INCREASE ACTIVITY TOMORROW AWAIT CATH 12-06 MEDS ADJUSTED TODAY START SERGIO HAD CARDIAC CATH ON 12-05 INCREASE ACTIVITY HOPEFULLY HOME ON 12-07 CHRIS RN AND PT AND CM Physical Exam Vital signs: Vital Signs 12/05/17 11:00 12/05/17 11:50 12/05/17 12:15 Temperature 98.2 F Pulse Rate 66 69 Respiratory Rate 18 18 Blood Pressure 109/54 L Pulse Oximetry 96 12/05/17 15:00 12/05/17 16:00 12/05/17 16:05 Temperature 98.6 F Pulse Rate 80 73 Respiratory Rate 18 18 Blood Pressure 142/73 H Pulse Oximetry 95 12/05/17 16:54 12/05/17 17:35 12/05/17 19:00 Temperature 99.1 F Pulse Rate 73 83 79 Respiratory Rate Blood Pressure 125/60 Pulse Oximetry 94 L 12/05/17 21:00 12/05/17 22:00 12/05/17 23:00 Temperature 98.6 F Pulse Rate 72 75 75 Respiratory Rate Blood Pressure 125/58 L Pulse Oximetry 95 12/06/17 00:00 12/06/17 01:00 12/06/17 02:00 Temperature Pulse Rate 64 64 67 Respiratory Rate Blood Pressure Pulse Oximetry 12/06/17 03:00 12/06/17 04:00 12/06/17 05:00 Temperature 98.4 F Pulse Rate 76 76 75 Respiratory Rate Blood Pressure 182/77 H Pulse Oximetry 93 L 12/06/17 06:00 Temperature Pulse Rate 72 Respiratory Rate Blood Pressure Pulse Oximetry Intake & Output 12/05/17 12/06/17 12/06/17 18:59 06:59 18:59 Intake Total 890 / 890 697 / 697 Output Total 500 / 500 1100 / 1100 Balance 390 / 390 -403 / -403 Weight 90 kg Intake: IV 550 / 550 337 / 337 Heparin/D5W 25,000 U/250 mL 25, 300 / 300 000 unit In 250 ml @ Per Protocol IV.CONT TITRATE PRN Rx #:[id number] Nitroglycerin Drip Premix 50 mg 250 / 250 337 / 337 In 250 ml @ Per Protocol IV. CONT TITRATE PRN Rx#:[id number] Oral 340 / 340 360 / 360 Output: Urine 500 / 500 1100 / 1100 Other: # Bowel Movements 0 Narrative: GENERAL: AWAKE ALERT AND ORIENTED X3 TALKATIVE AND COOPERATIVE SKIN: Warm and dry. HEAD: Atraumatic. Normocephalic. EYES: Pupils equal and round. No scleral icterus. No injection or drainage. EOMI ENT: No nasal bleeding or discharge. Mucous membranes pink and moist.TONGUE MIDLINE NECK: Trachea midline. No JVD. SUPPLE CARDIOVASCULAR: Regular rate and rhythm. S1 S2 NO S3 OR S4 NO HEAVE OR THRILL RESPIRATORY: No accessory muscle use. Clear to auscultation. Breath sounds equal bilaterally. GASTROINTESTINAL: Abdomen soft, non-tender, nondistended. Hepatic and splenic margins not palpable. MUSCULOSKELETAL: Extremities without clubbing, cyanosis, or edema. No obvious deformities. NEUROLOGICAL: Awake and alert. No obvious cranial nerve deficits. Motor grossly within normal limits. Five out of 5 muscle strength in the arms and legs. Normal speech. PSYCHIATRIC: Appropriate mood and affect; insight and judgment normal. Results - Labs CBC & Chem 7: 12/06/17 06:52 12/06/17 06:52 Laboratory Results - last 24 hr 12/06/17 12/06/17 12/06/17 06:52 06:52 06:52 WBC 12.5 H RBC 3.42 L Hgb 11.2 L Hct 32.5 L MCV 95.2 MCH 32.7 MCHC 34.4 RDW 13.5 Plt Count 352 MPV 8.3 Neut % (Auto) 71.1 H Lymph % (Auto) 10.6 [place] % (Auto) 14.6 H Eos % (Auto) 3.1 Baso % (Auto) 0.6 Neut # (Auto) 8.9 H Lymph # (Auto) 1.3 [place] # (Auto) 1.8 H Eos # (Auto) 0.4 Baso # (Auto) 0.1 WBC Differential . Differential Comment Auto diff final PT 10.4 INR 1.0 Sodium 139 Potassium 4.0 Chloride 106 Carbon Dioxide 25.7 Anion Gap 7 BUN 11 Creatinine 0.85 Estimated GFR 89 Random Glucose 112 H Calcium 7.6 L D Phosphorus 2.6 Magnesium 2.1 Total Bilirubin 0.7 AST 70 H ALT 23 Alkaline Phosphatase 41 L Total Protein 6.5 Albumin 3.1 L TSH 3.160 Free T4 1.03 Microbiology 12/04/17 09:21 Clean Catch Urine Urine Culture - Final <10,000 cfu/mL gram negative rods - no further workup - Imaging ITS Impressions Chest X-Ray 12/04/17 04:40 CONCLUSION: 1. Mild left lung base atelectasis. 2. Evidence of bony metastatic disease again noted. - Procedures 12/05/2017 INDICATIONS FOR CATHETERIZATION: 1. [id number] myocardial infarction. 2. Acute coronary chest pain, worse over the last week. CONSENT: Fully informed consent was obtained prior to the procedure. The risks of , bleeding, myocardial infarction, perforation, aspiration, foreseen and unforeseen complications were reviewed. The patient appeared to fully understand the risks. PROCEDURE: 1. Sedation. 2. Left heart catheterization. 3. Saphenous vein graft. 4. Internal mammary. 5. LV not done. 6. Femoral angiogram. PROCEDURAL STATEMENT: The patient was draped and prepped in the usual manner. The right femoral artery was non-palpable. The left femoral artery had a weak pulse. Using ultrasound and micropuncture technique with moderate difficulty, the left femoral artery was accessed. A sheath angiogram was carried out which showed a severe stenosis of the left iliofemoral region of about 90%. With moderate difficulty it was possible to pass a 4-E[place]ian catheter past the stenosis and catheterization was begun. Using a Jeri right coronary catheter, the right coronary was accessed as was the saphenous vein graft to the right coronary, the saphenous vein graft to the obtuse marginal 1 and the saphenous vein graft to the obtuse marginal 2. The saphenous vein graft to the obtuse marginal 1 was occluded with evidence of dye staining suggesting this was the non-STEMI ACS causing stenosis that was at least 3-4 days old given the history. The left internal mammary catheter was used to intubate the left internal mammary artery. A pigtail catheter was hung up in the left femoral artery and would not pass the aortic valve easily. Following this, all catheters and sheaths were removed. Manual pressure was applied until good hemostasis achieved and the patient taken to his room in stable condition. FINDINGS: I. HEMODYNAMICS: The aortic pressure was 101/52 with a mean of 72. LV gram was not done. The LV was not entered. II. CORONARY ARTERIES: The left main had a diffuse 40% stenosis. The LAD had a further 50% stenosis. There was evidence of competitive flow in the mid-LAD with evidence of flow via a patent left internal mammary graft via the left injection. There was a large septal telephone collector. The first diagonal branch was small. The second diagonal branch was medium to large. The third diagonal branch was small. The The circumflex artery was totally occluded proximally. The right coronary artery was a dominant vessel. It was totally occluded in its midsection. In the proximal third there were also 2 further 99% stenoses. III. VEIN GRAFTS: Vein graft to the OM2 had a 60% stenosis in its midsection. Vein graft to the OM1 was totally occluded with dye staining. Vein graft to the right coronary artery was a widely patent graft with excellent anastomosis at the distal right. There is moderate disease in the right coronary which is diffusely diseased. At the ostium of the posterolateral branch was 60% stenosis. There was a further tiny branch of the posterolateral branch that had a 90% stenosis at its ostium. The internal mammary artery was a widely patent graft with an excellent anastomosis to the LAD. At the right femoral iliac junction there was evidence of a 90% highly diseased lesion. CONCLUSION: Evidence of significant three-vessel coronary artery disease with patent three grafts out of four, 60% stenosis of the vein graft to the obtuse marginal 2, 100% occlusion of the obtuse marginal 1 which is acute coronary system-causing lesion. Given the access difficulties, the greater than 24 hours since the patient presented with the acute chest pains, and non-ST elevation myocardial infarction, the fact that the patient would need Plavix, Brilinta, etc., which there is a strong contraindication with his metastatic prostate cancer medications, feel that we should proceed with medical management at this time. RECOMMENDATIONS: The patient will be discharged in due course and will followup in my office in 1-2 weeks. Plan continued medical management. Yasmine Mohamud MD Assessment and Plan - Assessment (1) Non-ST elevation (NSTEMI) myocardial infarction Code(s): I21.4 - Non-ST elevation (NSTEMI) myocardial infarction Status: Acute Plan: History of CAD and CABG in 2002. Cardiology consulted. Patient started on heparin drip. Morphine as needed. On Coreg and lisinopril. Nitro as needed. CARDIAC CATH 7- MEDICAL MANAGEMENT RESTART NORVASC AND LISINOPRIL- IMDUR ADDED AM LABS (2) Prostate cancer metastatic to bone Code(s): C61 - Malignant neoplasm of prostate; C79.51 - Secondary malignant neoplasm of bone Status: Acute Plan: Follows with Dr. Alvarez outpatient. He has metastases to the spine but states he has not had much problem with pain. He has been stable on his current regimen or Xtandi and Lupron. (3) Hypertension Code(s): I10 - Essential (primary) hypertension Status: Chronic Plan: Continue lisinopril, amlodipine WELL IMDUR- WEAN OFF NITRO DRIP (4) GERD (gastroesophageal reflux disease) Code(s): K21.9 - Gastro-esophageal reflux disease without esophagitis Status: Acute Plan: Continue omeprazole (5) PAD (peripheral artery disease) Code(s): I73.9 - Peripheral vascular disease, unspecified Status: Acute Plan: Involving the left leg. Patient reports he is scheduled for surgery next week with Dr. Franco. Will need outpatient follow-up. Advised patient and his to discuss with cardiology regarding proper timing of surgery. - Plan CARDIAC CATHETERIZATION 7-10 MEDICAL MANAGEMENT DW RN AND PATIENT AM LABS INCREASE ACTIVITY Code Status: FULL CODE Discussed Condition With: RN AND PT AND CM AND FAMILY Discharge Planning: PENDING CARDIAC CLEARANCE
[2017-12-06] MEDS: Isosorbide Mononitrate 30 MG ER 24HR Tablet (Imdur) PO SCH (11:26)
[2017-12-06] MEDS: Morphine Inj 4 MG/ML Vial IV.PUSH PRN (12:03)
[2017-12-06] MEDS: [UNRECOGNIZED DRUG - OTHER] PO SCH (16:13)
[2017-12-06] MEDS: XTANDI PO SCH (16:13)
[2017-12-06 16:39] LABS: Hemoglobin A1c 5.8 % (4.3-6.0)
[2017-12-07 04:20] LABS: Baso # (Auto) 0.1 th/mm3 (0.0-0.2); Baso % (Auto) 0.7 % (0.0-2.0); Eos # (Auto) 0.4 th/mm3 (0.0-0.4); Eos % (Auto) 3.2 % (0.0-4.0); Hematocrit 32.3 % (39.0-51.0); Hemoglobin 11.1 gm/dL (13.0-17.0); Lymph # (Auto) 1.6 th/mm3 (1.0-4.8); Lymph % (Auto) 13.5 % (9.0-44.0); Mean Corpuscular HGB Conc 34.2 % (32.0-36.0); Mean Corpuscular Hemoglobin 32.6 pg (27.0-34.0); Mean Corpuscular Volume 95.2 fL (80.0-100.0); Mean Platelet Volume 8.4 fL (7.0-11.0); Mono # (Auto) 1.7 th/mm3 (0.0-0.9); Mono % (Auto) 14.5 % (0.0-8.0); Neut # (Auto) 7.9 th/mm3 (1.8-7.7); Neut % (Auto) 68.1 % (16.0-70.0); Platelet Count 333 th/mm3 (150-450); Red Cell Distribution Width 13.4 % (11.6-17.2); White Blood Count 11.5 th/mm3 (4.0-11.0)
[2017-12-07 04:57] LABS: Alanine Aminotransferase 20 U/L (12-78); Albumin 2.9 g/dL (3.4-5.0); Alkaline Phosphatase 41 U/L (45-117); Anion Gap 11 meq/L (5-15); Aspartate Aminotransferase 50 U/L (15-37); Blood Urea Nitrogen 13 mg/dL (7-18); Calcium 8.5 mg/dL (8.5-10.1); Carbon Dioxide 22.9 meq/L (21.0-32.0); Chloride 105 meq/L (98-107); Free T4 (Free Thyroxine) 1.03 ng/dL (0.76-1.46); Glomerular Filtration Rate 83 mL/min (>89); Glucose,Random 111 mg/dL (74-106); Magnesium 2.3 mg/dL (1.5-2.5); Phosphorus 2.8 mg/dL (2.5-4.9); Potassium 3.9 meq/L (3.5-5.1); Sodium 139 meq/L (136-145); Total Protein 6.7 g/dL (6.4-8.2)
[2017-12-07] MEDS: Budesonide-Formoterol 160/4.5 MCG 6 GM Inhaler INH SCH (06:11)
[2017-12-07] MEDS: Isosorbide Mononitrate 30 MG ER 24HR Tablet (Imdur) PO SCH (06:11)
--- NOTE | 2017-12-07 08:42 | P.PNCA ---
<Shadeed,August - Last Filed: 12/07/17 08:37> Subjective Interval history: The patient is sitting on edge of bed eating breakfast. He denies any chest pain. Has been up walking to the bathroom, denies any chest pain or SOB. Groin incision site healing well, no signs of infection. Physical Exam Vital signs: Vital Signs 12/06/17 11:00 12/06/17 15:00 12/06/17 18:13 Temperature 98.2 F 98.6 F Pulse Rate 69 66 Respiratory Rate 16 16 Blood Pressure 136/65 137/65 Pulse Oximetry 96 93 L 93 L 12/06/17 19:00 12/06/17 20:00 12/06/17 21:00 Temperature 98.9 F Pulse Rate 74 74 70 Respiratory Rate Blood Pressure 151/67 H Pulse Oximetry 93 L 12/06/17 22:00 12/06/17 23:00 12/07/17 00:00 Temperature 98.4 F Pulse Rate 76 72 72 Respiratory Rate Blood Pressure 163/74 H Pulse Oximetry 96 12/07/17 01:00 12/07/17 02:00 12/07/17 03:00 Temperature 98.1 F Pulse Rate 60 67 74 Respiratory Rate Blood Pressure 161/74 H Pulse Oximetry 94 L 12/07/17 04:00 12/07/17 05:00 12/07/17 06:00 Temperature Pulse Rate 74 63 60 Respiratory Rate Blood Pressure Pulse Oximetry Intake & Output 12/06/17 12/07/17 12/07/17 18:59 06:59 18:59 Intake Total 1080 / 1080 403 / 403 Output Total 875 / 875 750 / 750 Balance 205 / 205 -347 / -347 Weight 89.5 kg Intake: IV 163 / 163 Nitroglycerin Drip Premix 50 mg 163 / 163 In 250 ml @ Per Protocol IV. CONT TITRATE PRN Rx#:[id number] Oral 1080 / 1080 240 / 240 Output: Urine 875 / 875 750 / 750 Other: Date of Last Bowel Movement 12/04/17 - Constitutional no acute distress - Routine HEENT Exam Head: Present: normocephalic Eye: Present: PERRL, normal accommodation ENT: Present: mucous membranes moist - Routine Neck Exam Present: supple - Routine Respiratory Exam Present: CTA bilaterally - Routine Cardiovascular Exam Present: RRR - Routine Abdominal Exam Present: soft, normoactive bowel sounds - Routine Extremities Exam Present: full ROM, pulses intact - Routine Skin Exam Present: intact - Routine Neurological Exam Present: alert, oriented X3 - Detailed Neurological Exam: Coma Scale Eye Opening: Spontaneous Verbal Response: Oriented Motor Response: Obey commands Leonardo Coma Scale Total: 15 - Routine Psychiatric Exam Present: normal affect, normal thought process Assessment and Plan - Plan Assessment Non-ST elevation myocardial infarction Coronary Artery disease with history of bypass with Dr. Ibrahim 2007 Metastatic Prostate Cancer Hypertension GERD Claudication AAA Plan Status post cardiac catheterization with medical management recommended. Groin healing well. Pt reports allergy to Aspirin and statin. Patient is cleared for discharge home from a cardiac standpoint. New prescriptions have been left on chart for Coreg 3.125mg PO BID and Imdur 30mg daily. Will plan to follow up in 2 weeks. Cancer is in remission-Patient follows with Dr. Alvarez. Has been in remission for 14 months. On Xtandi. Home medications resumed. BP is stable this AM. Patient follows with Dr. Franco, pending Left and right groin reconstruction and angiogram. Patient is cleared for discharge home from a cardiac standpoint. New prescriptions have been left on chart for Coreg 3.125mg PO BID and Imdur 30mg daily. Will plan to follow up in 2 weeks. The patient was seen and evaluated by Dr. Mohamud who completed face to face encounter and physical exam and participated in care, management and decision making. Discussed Condition With: Nurse, patient and <Yasmine Mohamud - Last Filed: 12/07/17 14:40> Physical Exam Vital signs: Vital Signs 12/06/17 15:00 12/06/17 18:13 12/06/17 19:00 Temperature 98.6 F 98.9 F Pulse Rate 66 74 Respiratory Rate 16 Blood Pressure 137/65 151/67 H Pulse Oximetry 93 L 93 L 93 L 12/06/17 20:00 12/06/17 21:00 12/06/17 22:00 Temperature Pulse Rate 74 70 76 Respiratory Rate Blood Pressure Pulse Oximetry 12/06/17 23:00 12/07/17 00:00 12/07/17 01:00 Temperature 98.4 F Pulse Rate 72 72 60 Respiratory Rate Blood Pressure 163/74 H Pulse Oximetry 96 12/07/17 02:00 12/07/17 03:00 12/07/17 04:00 Temperature 98.1 F Pulse Rate 67 74 74 Respiratory Rate Blood Pressure 161/74 H Pulse Oximetry 94 L 12/07/17 05:00 12/07/17 06:00 12/07/17 07:00 Temperature Pulse Rate 63 60 69 Respiratory Rate Blood Pressure 129/60 Pulse Oximetry 93 L 12/07/17 08:00 12/07/17 09:00 Temperature Pulse Rate 70 81 Respiratory Rate Blood Pressure Pulse Oximetry 93 L Intake & Output 12/06/17 12/07/17 12/07/17 18:59 06:59 18:59 Intake Total 1080 / 1080 403 / 403 Output Total 875 / 875 750 / 750 Balance 205 / 205 -347 / -347 Weight 89.5 kg Intake: IV 163 / 163 Nitroglycerin Drip Premix 50 mg 163 / 163 In 250 ml @ Per Protocol IV. CONT TITRATE PRN Rx#:[id number] Oral 1080 / 1080 240 / 240 Output: Urine 875 / 875 750 / 750 Other: Date of Last Bowel Movement 12/04/17 Assessment and Plan - Plan Overall doing better, no pain today, s/p NSTEMI with occluded coronary bypass vein graft. Cancer med interacts with Plavix and Brilinta
[2017-12-07] MEDS ORDERED: Lisinopril 10 MG Tablet PO SCH (09:00)
[2017-12-07] MEDS ORDERED: Lisinopril 20 MG Tablet PO SCH (09:00)
[2017-12-07] MEDS: amLODIPine 5 MG Tablet PO SCH (09:27)
[2017-12-07] MEDS: Pantoprazole Sodium 20 MG DR Tablet PO SCH (09:27)
[2017-12-07] MEDS: Levothyroxine 100 MCG Tablet PO SCH (09:30)
--- NOTE | 2017-12-07 09:48 | P.PNIM ---
Subjective Interval history: 72-year-old male with a medical history significant for coronary artery disease status post CABG in 2002, right carotid endarterectomy, peripheral artery disease, prostate cancer with bony metastasis presented to the emergency room with complaint of chest pain. The patient reported the chest pain started about 3 days ago. It involved his whole chest and back. He tried some icy hot without much relief. The pain became worse overnight which prompted the visit to the emergency room. He reports mild intermittent shortness of breath. He denies nausea or vomiting. He follows regularly with cardiology, Dr. Mohamud and oncologist is Dr. Alvarez. Workup in the emergency room is consistent with NSTEMI. 12-[address] MOHAMUD PATIENT IS SCHEDULED FOR CATH LATER TODAY CHRIS RN AND PATIENT AND AM LABS INCREASE ACTIVITY TOMORROW AWAIT CATH 12-06 MEDS ADJUSTED TODAY START SERGIO HAD CARDIAC CATH ON 12-05 INCREASE ACTIVITY HOPEFULLY HOME ON 12-07 CHRIS RN AND PT AND CM 12-07 CLEARED BY CARDIOLOGY WANTS TO GO HOME TODAY FOLLOW UP WITH LUCIANO SEE RX Physical Exam Vital signs: Vital Signs 12/06/17 11:00 12/06/17 15:00 12/06/17 18:13 Temperature 98.2 F 98.6 F Pulse Rate 69 66 Respiratory Rate 16 16 Blood Pressure 136/65 137/65 Pulse Oximetry 96 93 L 93 L 12/06/17 19:00 12/06/17 20:00 12/06/17 21:00 Temperature 98.9 F Pulse Rate 74 74 70 Respiratory Rate Blood Pressure 151/67 H Pulse Oximetry 93 L 12/06/17 22:00 12/06/17 23:00 12/07/17 00:00 Temperature 98.4 F Pulse Rate 76 72 72 Respiratory Rate Blood Pressure 163/74 H Pulse Oximetry 96 12/07/17 01:00 12/07/17 02:00 12/07/17 03:00 Temperature 98.1 F Pulse Rate 60 67 74 Respiratory Rate Blood Pressure 161/74 H Pulse Oximetry 94 L 12/07/17 04:00 12/07/17 05:00 12/07/17 06:00 Temperature Pulse Rate 74 63 60 Respiratory Rate Blood Pressure Pulse Oximetry 12/07/17 07:00 12/07/17 08:00 Temperature Pulse Rate 69 70 Respiratory Rate Blood Pressure 129/60 Pulse Oximetry 93 L 93 L Intake & Output 12/06/17 12/07/17 12/07/17 18:59 06:59 18:59 Intake Total 1080 / 1080 403 / 403 Output Total 875 / 875 750 / 750 Balance 205 / 205 -347 / -347 Weight 89.5 kg Intake: IV 163 / 163 Nitroglycerin Drip Premix 50 mg 163 / 163 In 250 ml @ Per Protocol IV. CONT TITRATE PRN Rx#:[id number] Oral 1080 / 1080 240 / 240 Output: Urine 875 / 875 750 / 750 Other: Date of Last Bowel Movement 12/04/17 Narrative: GENERAL: AWAKE ALERT AND ORIENTED X3 TALKATIVE AND COOPERATIVE SKIN: Warm and dry. HEAD: Atraumatic. Normocephalic. EYES: Pupils equal and round. No scleral icterus. No injection or drainage. EOMI ENT: No nasal bleeding or discharge. Mucous membranes pink and moist.TONGUE MIDLINE NECK: Trachea midline. No JVD. SUPPLE CARDIOVASCULAR: Regular rate and rhythm. S1 S2 NO S3 OR S4 NO HEAVE OR THRILL RESPIRATORY: No accessory muscle use. Clear to auscultation. Breath sounds equal bilaterally. GASTROINTESTINAL: Abdomen soft, non-tender, nondistended. Hepatic and splenic margins not palpable. MUSCULOSKELETAL: Extremities without clubbing, cyanosis, or edema. No obvious deformities. NEUROLOGICAL: Awake and alert. No obvious cranial nerve deficits. Motor grossly within normal limits. Five out of 5 muscle strength in the arms and legs. Normal speech. PSYCHIATRIC: Appropriate mood and affect; insight and judgment normal. Results - Labs CBC & Chem 7: 12/07/17 03:45 12/07/17 03:45 Laboratory Results - last 24 hr 12/06/17 12/07/17 12/07/17 06:52 03:45 03:45 WBC 11.5 H RBC 3.40 L Hgb 11.1 L Hct 32.3 L MCV 95.2 MCH 32.6 MCHC 34.2 RDW 13.4 Plt Count 333 MPV 8.4 Neut % (Auto) 68.1 Lymph % (Auto) 13.5 Hayes % (Auto) 14.5 H Eos % (Auto) 3.2 Baso % (Auto) 0.7 Neut # (Auto) 7.9 H Lymph # (Auto) 1.6 Hayes # (Auto) 1.7 H Eos # (Auto) 0.4 Baso # (Auto) 0.1 WBC Differential . Differential Comment Auto diff final Sodium 139 Potassium 3.9 Chloride 105 Carbon Dioxide 22.9 Anion Gap 11 BUN 13 Creatinine 0.90 Estimated GFR 83 L Random Glucose 111 H Hemoglobin A1c 5.8 Calcium 8.5 D Phosphorus 2.8 Magnesium 2.3 Total Bilirubin 0.6 AST 50 H ALT 20 Alkaline Phosphatase 41 L Total Protein 6.7 Albumin 2.9 L Free T4 1.03 Microbiology 12/04/17 09:21 Clean Catch Urine Urine Culture - Final <10,000 cfu/mL gram negative rods - no further workup - Imaging ITS Impressions Chest X-Ray 12/04/17 04:40 CONCLUSION: 1. Mild left lung base atelectasis. 2. Evidence of bony metastatic disease again noted. - Procedures 12/05/2017 INDICATIONS FOR CATHETERIZATION: 1. [id number] myocardial infarction. 2. Acute coronary chest pain, worse over the last week. CONSENT: Fully informed consent was obtained prior to the procedure. The risks of , bleeding, myocardial infarction, perforation, aspiration, foreseen and unforeseen complications were reviewed. The patient appeared to fully understand the risks. PROCEDURE: 1. Sedation. 2. Left heart catheterization. 3. Saphenous vein graft. 4. Internal mammary. 5. LV not done. 6. Femoral angiogram. PROCEDURAL STATEMENT: The patient was draped and prepped in the usual manner. The right femoral artery was non-palpable. The left femoral artery had a weak pulse. Using ultrasound and micropuncture technique with moderate difficulty, the left femoral artery was accessed. A sheath angiogram was carried out which showed a severe stenosis of the left iliofemoral region of about 90%. With moderate difficulty it was possible to pass a 4-Romanian catheter past the stenosis and catheterization was begun. Using a Jeri right coronary catheter, the right coronary was accessed as was the saphenous vein graft to the right coronary, the saphenous vein graft to the obtuse marginal 1 and the saphenous vein graft to the obtuse marginal 2. The saphenous vein graft to the obtuse marginal 1 was occluded with evidence of dye staining suggesting this was the non-STEMI ACS causing stenosis that was at least 3-4 days old given the history. The left internal mammary catheter was used to intubate the left internal mammary artery. A pigtail catheter was hung up in the left femoral artery and would not pass the aortic valve easily. Following this, all catheters and sheaths were removed. Manual pressure was applied until good hemostasis achieved and the patient taken to his room in stable condition. FINDINGS: I. HEMODYNAMICS: The aortic pressure was 101/52 with a mean of 72. LV gram was not done. The LV was not entered. II. CORONARY ARTERIES: The left main had a diffuse 40% stenosis. The LAD had a further 50% stenosis. There was evidence of competitive flow in the mid-LAD with evidence of flow via a patent left internal mammary graft via the left injection. There was a large septal broadband installer. The first diagonal branch was small. The second diagonal branch was medium to large. The third diagonal branch was small. The The circumflex artery was totally occluded proximally. The right coronary artery was a dominant vessel. It was totally occluded in its midsection. In the proximal third there were also 2 further 99% stenoses. III. VEIN GRAFTS: Vein graft to the OM2 had a 60% stenosis in its midsection. Vein graft to the OM1 was totally occluded with dye staining. Vein graft to the right coronary artery was a widely patent graft with excellent anastomosis at the distal right. There is moderate disease in the right coronary which is diffusely diseased. At the ostium of the posterolateral branch was 60% stenosis. There was a further tiny branch of the posterolateral branch that had a 90% stenosis at its ostium. The internal mammary artery was a widely patent graft with an excellent anastomosis to the LAD. At the right femoral iliac junction there was evidence of a 90% highly diseased lesion. CONCLUSION: Evidence of significant three-vessel coronary artery disease with patent three grafts out of four, 60% stenosis of the vein graft to the obtuse marginal 2, 100% occlusion of the obtuse marginal 1 which is acute coronary system-causing lesion. Given the access difficulties, the greater than 24 hours since the patient presented with the acute chest pains, and non-ST elevation myocardial infarction, the fact that the patient would need Plavix, Brilinta, etc., which there is a strong contraindication with his metastatic prostate cancer medications, feel that we should proceed with medical management at this time. RECOMMENDATIONS: The patient will be discharged in due course and will followup in my office in 1-2 weeks. Plan continued medical management. Yasmine Mohamud MD Assessment and Plan - Assessment (1) Non-ST elevation (NSTEMI) myocardial infarction Code(s): I21.4 - Non-ST elevation (NSTEMI) myocardial infarction Status: Acute Plan: History of CAD and CABG in 2002. Cardiology consulted. Patient started on heparin drip. Morphine as needed. On Coreg and lisinopril. Nitro as needed. CARDIAC CATH 12-06 MEDICAL MANAGEMENT RESTART NORVASC AND LISINOPRIL- IMDUR ADDED DC TO HOME TODAY (2) Prostate cancer metastatic to bone Code(s): C61 - Malignant neoplasm of prostate; C79.51 - Secondary malignant neoplasm of bone Status: Acute Plan: Follows with Dr. Alvarez outpatient. He has metastases to the spine but states he has not had much problem with pain. He has been stable on his current regimen or Xtandi and Lupron. (3) Hypertension Code(s): I10 - Essential (primary) hypertension Status: Chronic Plan: Continue lisinopril, amlodipine WELL IMDUR- WEAN OFF NITRO DRIP (4) GERD (gastroesophageal reflux disease) Code(s): K21.9 - Gastro-esophageal reflux disease without esophagitis Status: Acute Plan: Continue omeprazole (5) PAD (peripheral artery disease) Code(s): I73.9 - Peripheral vascular disease, unspecified Status: Acute Plan: Involving the left leg. Patient reports he is scheduled for surgery next week with Dr. Franco. Will need outpatient follow-up. Advised patient and his to discuss with cardiology regarding proper timing of surgery. - Plan CARDIAC CATHETERIZATION - MEDICAL MANAGEMENT CHRIS RN AND PATIENT AM LABS INCREASE ACTIVITY DC TO HOME TODAY Code Status: FULL Discussed Condition With: RN AND PT AND Discharge Planning: DC TO HOME TODAY
--- NOTE | 2017-12-07 10:12 | P.DS ---
Date of admission: 12/04/17 06:40 Primary care physician: Kian Alonzo MD Attending physician on discharge: Noe Olivia Anticipated date of discharge: 12/07/17 Brief History from admission: 72-year-old male with a medical history significant for coronary artery disease status post CABG in 2002, right carotid endarterectomy, peripheral artery disease, prostate cancer with bony metastasis presented to the emergency room with complaint of chest pain. The patient reported the chest pain started about 3 days ago. It involved his whole chest and back. He tried some icy hot without much relief. The pain became worse overnight which prompted the visit to the emergency room. He reports mild intermittent shortness of breath. He denies nausea or vomiting. He follows regularly with cardiology, Dr. Mohamud and oncologist is Dr. Alvarez. Workup in the emergency room is consistent with NSTEMI. DS: Diagnosis - Discharge Diagnosis (1) Non-ST elevation (NSTEMI) myocardial infarction Status: Acute (2) Prostate cancer metastatic to bone Status: Chronic (3) Hypertension Status: Chronic (4) GERD (gastroesophageal reflux disease) Status: Chronic (5) PAD (peripheral artery disease) Status: Chronic DS: Medications - Discharge Medications Prescriptions: albuterol sulfate [ProAir HFA] 2 puff INHALATION Q4-6H PRN #1 inh PRN Reason: Acute Pain amlodipine [Norvasc] 5 mg PO DAILY #30 tab budesonide-formoterol [Symbicort] 2 puff INHALATION Q12H #1 inh carvedilol [Coreg] 3.125 mg PO BID #60 tab isosorbide mononitrate 30 mg PO DAILY@0700 #30 tab levothyroxine [Synthroid] 100 mcg PO DAILY@0600 #30 tab lisinopril 10 mg PO DAILY #30 tab DS: Summary Hospital Course: 72-year-old male with a medical history significant for coronary artery disease status post CABG in 2002, right carotid endarterectomy, peripheral artery disease, prostate cancer with bony metastasis presented to the emergency room with complaint of chest pain. The patient reported the chest pain started about 3 days ago. It involved his whole chest and back. He tried some icy hot without much relief. The pain became worse overnight which prompted the visit to the emergency room. He reports mild intermittent shortness of breath. He denies nausea or vomiting. He follows regularly with cardiology, Dr. Mohamud and oncologist is Dr. Alvarez. Workup in the emergency room is consistent with NSTEMI. 12-[address] MOHAMUD PATIENT IS SCHEDULED FOR CATH LATER TODAY CHRIS RN AND PATIENT AND AM LABS INCREASE ACTIVITY TOMORROW AWAIT CATH 12-06 MEDS ADJUSTED TODAY START SERGIO HAD CARDIAC CATH ON 12-05 INCREASE ACTIVITY HOPEFULLY HOME ON 12-07 CHRIS RN AND PT AND CM 12-07 CLEARED BY CARDIOLOGY WANTS TO GO HOME TODAY FOLLOW UP WITH LUCIANO SEE RX - Time Spent with Patient Total time spent providing and/or coordinating discharge services: Greater than 30 minutes - Quality: VTE Deep Vein Thrombosis/Pulmonary Embolism Present on Admission: No Exam Vital signs: Vital Signs 12/06/17 11:00 12/06/17 15:00 12/06/17 18:13 Temperature 98.2 F 98.6 F Pulse Rate 69 66 Respiratory Rate 16 16 Blood Pressure 136/65 137/65 Pulse Oximetry 96 93 L 93 L 12/06/17 19:00 12/06/17 20:00 12/06/17 21:00 Temperature 98.9 F Pulse Rate 74 74 70 Respiratory Rate Blood Pressure 151/67 H Pulse Oximetry 93 L 12/06/17 22:00 12/06/17 23:00 12/07/17 00:00 Temperature 98.4 F Pulse Rate 76 72 72 Respiratory Rate Blood Pressure 163/74 H Pulse Oximetry 96 12/07/17 01:00 12/07/17 02:00 12/07/17 03:00 Temperature 98.1 F Pulse Rate 60 67 74 Respiratory Rate Blood Pressure 161/74 H Pulse Oximetry 94 L 12/07/17 04:00 12/07/17 05:00 12/07/17 06:00 Temperature Pulse Rate 74 63 60 Respiratory Rate Blood Pressure Pulse Oximetry 12/07/17 07:00 12/07/17 08:00 Temperature Pulse Rate 69 70 Respiratory Rate Blood Pressure 129/60 Pulse Oximetry 93 L 93 L Intake & Output 12/06/17 12/07/17 12/07/17 18:59 06:59 18:59 Intake Total 1080 / 1080 403 / 403 Output Total 875 / 875 750 / 750 Balance 205 / 205 -347 / -347 Weight 89.5 kg Intake: IV 163 / 163 Nitroglycerin Drip Premix 50 mg 163 / 163 In 250 ml @ Per Protocol IV. CONT TITRATE PRN Rx#:[id number] Oral 1080 / 1080 240 / 240 Output: Urine 875 / 875 750 / 750 Other: Date of Last Bowel Movement 12/04/17 Narrative: GENERAL: Awake alert and oriented 3 talkative and cooperative SKIN: Warm and dry. HEAD: Atraumatic. Normocephalic. EYES: Pupils equal and round. No scleral icterus. No injection or drainage. ENT: No nasal bleeding or discharge. Mucous membranes pink and moist. NECK: Trachea midline. No JVD. CARDIOVASCULAR: Regular rate and rhythm. S1-S2 no S3 or S4 RESPIRATORY: No accessory muscle use. Clear to auscultation. Breath sounds equal bilaterally. GASTROINTESTINAL: Abdomen soft, non-tender, nondistended. Hepatic and splenic margins not palpable. MUSCULOSKELETAL: Extremities without clubbing, cyanosis, or edema. No obvious deformities. NEUROLOGICAL: Awake and alert. No obvious cranial nerve deficits. Motor grossly within normal limits. Five out of 5 muscle strength in the arms and legs. Normal speech. PSYCHIATRIC: Appropriate mood and affect; insight and judgment normal. Results Procedures completed during hospitalization: 12/05/2017 INDICATIONS FOR CATHETERIZATION: 1. [id number] myocardial infarction. 2. Acute coronary chest pain, worse over the last week. CONSENT: Fully informed consent was obtained prior to the procedure. The risks of , bleeding, myocardial infarction, perforation, aspiration, foreseen and unforeseen complications were reviewed. The patient appeared to fully understand the risks. PROCEDURE: 1. Sedation. 2. Left heart catheterization. 3. Saphenous vein graft. 4. Internal mammary. 5. LV not done. 6. Femoral angiogram. PROCEDURAL STATEMENT: The patient was draped and prepped in the usual manner. The right femoral artery was non-palpable. The left femoral artery had a weak pulse. Using ultrasound and micropuncture technique with moderate difficulty, the left femoral artery was accessed. A sheath angiogram was carried out which showed a severe stenosis of the left iliofemoral region of about 90%. With moderate difficulty it was possible to pass a 4-Serbian catheter past the stenosis and catheterization was begun. Using a Jeri right coronary catheter, the right coronary was accessed as was the saphenous vein graft to the right coronary, the saphenous vein graft to the obtuse marginal 1 and the saphenous vein graft to the obtuse marginal 2. The saphenous vein graft to the obtuse marginal 1 was occluded with evidence of dye staining suggesting this was the non-STEMI ACS causing stenosis that was at least 3-4 days old given the history. The left internal mammary catheter was used to intubate the left internal mammary artery. A pigtail catheter was hung up in the left femoral artery and would not pass the aortic valve easily. Following this, all catheters and sheaths were removed. Manual pressure was applied until good hemostasis achieved and the patient taken to his room in stable condition. FINDINGS: I. HEMODYNAMICS: The aortic pressure was 101/52 with a mean of 72. LV gram was not done. The LV was not entered. II. CORONARY ARTERIES: The left main had a diffuse 40% stenosis. The LAD had a further 50% stenosis. There was evidence of competitive flow in the mid-LAD with evidence of flow via a patent left internal mammary graft via the left injection. There was a large septal automatic pad making machine operator. The first diagonal branch was small. The second diagonal branch was medium to large. The third diagonal branch was small. The The circumflex artery was totally occluded proximally. The right coronary artery was a dominant vessel. It was totally occluded in its midsection. In the proximal third there were also 2 further 99% stenoses. III. VEIN GRAFTS: Vein graft to the OM2 had a 60% stenosis in its midsection. Vein graft to the OM1 was totally occluded with dye staining. Vein graft to the right coronary artery was a widely patent graft with excellent anastomosis at the distal right. There is moderate disease in the right coronary which is diffusely diseased. At the ostium of the posterolateral branch was 60% stenosis. There was a further tiny branch of the posterolateral branch that had a 90% stenosis at its ostium. The internal mammary artery was a widely patent graft with an excellent anastomosis to the LAD. At the right femoral iliac junction there was evidence of a 90% highly diseased lesion. CONCLUSION: Evidence of significant three-vessel coronary artery disease with patent three grafts out of four, 60% stenosis of the vein graft to the obtuse marginal 2, 100% occlusion of the obtuse marginal 1 which is acute coronary system-causing lesion. Given the access difficulties, the greater than 24 hours since the patient presented with the acute chest pains, and non-ST elevation myocardial infarction, the fact that the patient would need Plavix, Brilinta, etc., which there is a strong contraindication with his metastatic prostate cancer medications, feel that we should proceed with medical management at this time. RECOMMENDATIONS: The patient will be discharged in due course and will followup in my office in 1-2 weeks. Plan continued medical management. Yasmine Mohamud MD Completed studies during hospitalization: Laboratory Results WBC 11.5 th/mm3 (4.0-11.0) H 12/07/17 03:45 RBC 3.40 mil/mm3 (4.50-5.90) L 12/07/17 03:45 Hgb 11.1 gm/dL (13.0-17.0) L 12/07/17 03:45 Hct 32.3 % (39.0-51.0) L 12/07/17 03:45 MCV 95.2 fL (80.0-100.0) 12/07/17 03:45 MCH 32.6 pg (27.0-34.0) 12/07/17 03:45 MCHC 34.2 % (32.0-36.0) 12/07/17 03:45 RDW 13.4 % (11.6-17.2) 12/07/17 03:45 Plt Count 333 th/mm3 (150-450) 12/07/17 03:45 MPV 8.4 fL (7.0-11.0) 12/07/17 03:45 Neut % (Auto) 68.1 % (16.0-70.0) 12/07/17 03:45 Lymph % (Auto) 13.5 % (9.0-44.0) 12/07/17 03:45 Clinch % (Auto) 14.5 % (0.0-8.0) H 12/07/17 03:45 Eos % (Auto) 3.2 % (0.0-4.0) 12/07/17 03:45 Baso % (Auto) 0.7 % (0.0-2.0) 12/07/17 03:45 Neut # (Auto) 7.9 th/mm3 (1.8-7.7) H 12/07/17 03:45 Lymph # (Auto) 1.6 th/mm3 (1.0-4.8) 12/07/17 03:45 Clinch # (Auto) 1.7 th/mm3 (0.0-0.9) H 12/07/17 03:45 Eos # (Auto) 0.4 th/mm3 (0.0-0.4) 12/07/17 03:45 Baso # (Auto) 0.1 th/mm3 (0.0-0.2) 12/07/17 03:45 WBC Differential . 12/07/17 03:45 Differential Comment Auto diff final 12/07/17 03:45 PT 10.4 sec (9.8-11.6) 12/06/17 06:52 INR 1.0 Ratio 12/06/17 06:52 APTT 41.2 sec (24.3-30.1) H 12/05/17 05:00 Sodium 139 meq/L (136-145) 12/07/17 03:45 Potassium 3.9 meq/L (3.5-5.1) 12/07/17 03:45 Chloride 105 meq/L (98-107) 12/07/17 03:45 Carbon Dioxide 22.9 meq/L (21.0-32.0) 12/07/17 03:45 Anion Gap 11 meq/L (5-15) 12/07/17 03:45 BUN 13 mg/dL (7-18) 12/07/17 03:45 Creatinine 0.90 mg/dL (0.60-1.30) 12/07/17 03:45 Estimated GFR 83 mL/min (>89) L 12/07/17 03:45 Random Glucose 111 mg/dL (74-106) H 12/07/17 03:45 Hemoglobin A1c 5.8 % (4.3-6.0) 12/06/17 06:52 Calcium 8.5 mg/dL (8.5-10.1) D 12/07/17 03:45 Phosphorus 2.8 mg/dL (2.5-4.9) 12/07/17 03:45 Magnesium 2.3 mg/dL (1.5-2.5) 12/07/17 03:45 Total Bilirubin 0.6 mg/dL (0.2-1.0) 12/07/17 03:45 AST 50 U/L (15-37) H 12/07/17 03:45 ALT 20 U/L (12-78) 12/07/17 03:45 Alkaline Phosphatase 41 U/L (45-117) L 12/07/17 03:45 Total Creatine Kinase 709 U/L (39-308) H 12/04/17 15:28 CK-MB (CK-2) 65.0 ng/mL (0.5-3.6) H 12/04/17 15:28 CK-MB (CK-2) % 9.2 % (0.0-4.0) H* 12/04/17 15:28 Troponin I ng/mL (0.02-0.05) 12/04/17 15:28 Total Protein 6.7 g/dL (6.4-8.2) 12/07/17 03:45 Albumin 2.9 g/dL (3.4-5.0) L 12/07/17 03:45 TSH 3.160 uIU/mL (0.358-3.740) 12/06/17 06:52 Free T4 1.03 ng/dL (0.76-1.46) 12/07/17 03:45 Impressions Chest X-Ray 12/04/17 04:40 CONCLUSION: 1. Mild left lung base atelectasis. 2. Evidence of bony metastatic disease again noted. Labs on day of discharge: Labs from last 24 hours 12/07/17 12/07/17 12/06/17 03:45 03:45 06:52 WBC 11.5 H RBC 3.40 L Hgb 11.1 L Hct 32.3 L MCV 95.2 MCH 32.6 MCHC 34.2 RDW 13.4 Plt Count 333 MPV 8.4 Neut % (Auto) 68.1 Lymph % (Auto) 13.5 Clinch % (Auto) 14.5 H Eos % (Auto) 3.2 Baso % (Auto) 0.7 Neut # (Auto) 7.9 H Lymph # (Auto) 1.6 Clinch # (Auto) 1.7 H Eos # (Auto) 0.4 Baso # (Auto) 0.1 WBC Differential . Differential Comment Auto diff final Sodium 139 Potassium 3.9 Chloride 105 Carbon Dioxide 22.9 Anion Gap 11 BUN 13 Creatinine 0.90 Estimated GFR 83 L Random Glucose 111 H Hemoglobin A1c 5.8 Calcium 8.5 D Phosphorus 2.8 Magnesium 2.3 Total Bilirubin 0.6 AST 50 H ALT 20 Alkaline Phosphatase 41 L Total Protein 6.7 Albumin 2.9 L Free T4 1.03 - Impressions ITS Impressions Chest X-Ray 12/04/17 04:40 CONCLUSION: 1. Mild left lung base atelectasis. 2. Evidence of bony metastatic disease again noted. Discharge Plan - Discharge Disposition Patient Disposition: Discharge Home - Discharge Condition Condition: Stable - Discharge Order Discharge Orders: Discharge Order (Routine); Ordered 12/07/17 Ordered By: Noe Olivia Cardiology Clear for Discharge (Routine); Ordered 12/07/17 Ordered By: August Shadeed - Discharge Details Anticipated Discharge Date: 12/07/17 - Physicians Team Primary Care Provider: Kian Alonzo Attending Provider: Noe Olivia Other Providers: Jose Alejandro Arshad MD
[2017-12-07] MEDS ORDERED: Heparin Central Flush 100 UNIT/ML 5 ML Vial IV.FLUSH ONE (11:15)
== END 2017-12-07 11:50 | disposition home or self-care (01) ==
LOC: NEPC 03:35 → NEDA 06:40 → HCPC 09:38
PROVIDERS: ADMIT Hospitalist; ATTEND Hospitalist

== ENCOUNTER 2017-12-16 16:50 | Observation (INO) ==
[2017-12-16] MEDS ORDERED: Morphine Inj 4 MG/ML Vial IV.PUSH ONE (17:38)
[2017-12-16 18:49] LABS: Baso # (Auto) 0.1 th/mm3 (0.0-0.2); Baso % (Auto) 1.3 % (0.0-2.0); Eos % (Auto) 13.7 % (0.0-4.0); Hematocrit 33.5 % (39.0-51.0); Hemoglobin 11.5 gm/dL (13.0-17.0); Lymph # (Auto) 1.6 th/mm3 (1.0-4.8); Lymph % (Auto) 21.9 % (9.0-44.0); Mean Corpuscular HGB Conc 34.2 % (32.0-36.0); Mean Corpuscular Hemoglobin 32.8 pg (27.0-34.0); Mean Platelet Volume 8.2 fL (7.0-11.0); Mono # (Auto) 0.9 th/mm3 (0.0-0.9); Mono % (Auto) 11.9 % (0.0-8.0); Neut # (Auto) 3.7 th/mm3 (1.8-7.7); Neut % (Auto) 51.2 % (16.0-70.0); Platelet Count 607 th/mm3 (150-450); Red Blood Count 3.49 mil/mm3 (4.50-5.90); Red Cell Distribution Width 13.5 % (11.6-17.2); White Blood Count 7.3 th/mm3 (4.0-11.0)
[2017-12-16 18:51] LABS: Activated Partial Thrombo Time 28.1 sec (24.3-30.1); Prothrombin Time 10.1 sec (9.8-11.6)
[2017-12-16 19:00] LABS: Albumin 3.3 g/dL (3.4-5.0); Anion Gap 13 meq/L (5-15); Aspartate Aminotransferase 10 U/L (15-37); Blood Urea Nitrogen 12 mg/dL (7-18); Calcium 8.8 mg/dL (8.5-10.1); Carbon Dioxide 21.5 meq/L (21.0-32.0); Chloride 103 meq/L (98-107); Glomerular Filtration Rate Greater Than 89 mL/min (>89); Glucose,Random 99 mg/dL (74-106); Potassium 3.6 meq/L (3.5-5.1); Sodium 137 meq/L (136-145)
[2017-12-16 19:01] LABS: Alanine Aminotransferase 11 U/L (12-78)
[2017-12-16 19:03] LABS: Alkaline Phosphatase 48 U/L (45-117)
--- NOTE | 2017-12-16 19:16 | ED ---
HPI General Chief complaint: Recheck/Abnormal Lab/Rx Stated complaint: Medical/Phy Sent Time Seen by Provider: 12/16/17 17:11 History of Present Illness HPI narrative: This is a 72-year-old male with history of prostate cancer, peripheral vascular disease, dyslipidemia, hypertension, who presents today with complaints of abdominal pain with black stool. Patient was concerned that he may have blood in his stool. The patient had a non-ST elevation NC 10 days ago. At that time he was also noted to have vascular disease that need to be addressed by his vascular surgeon, Dr. Franco. The decision was made to wait for 2 weeks from the catheterization which was done 10 days ago until he had any potential procedure. There is no reported vomiting or diarrhea. There is no reported chest pain, chest pressure. He reports the pain is in the lower abdominal area and radiates towards his back. He did have a CAT scan done on Tuesday which showed aortic stenosis and vessel disease. Related Data Home Medications Medication Instructions Recorded Confirmed enzalutamide [Xtandi] 160 mg PO DAILY 12/04/17 12/16/17 hydromorphone [Dilaudid] 6 mg PO Q4-6H PRN 12/04/17 12/16/17 omeprazole 20 mg PO DAILY PRN 12/04/17 12/16/17 albuterol sulfate [ProAir HFA] 1 puff INHALATION Q4-6H PRN 12/16/17 12/16/17 budesonide-formoterol [Symbicort] 2 puff INHALATION DAILY 12/16/17 12/16/17 isosorbide mononitrate 30 mg PO DAILY 12/16/17 12/16/17 lisinopril 10 mg PO BID 12/16/17 12/16/17 Previous Rx's Medication Instructions Recorded amlodipine [Norvasc] 5 mg PO DAILY #30 tab 12/07/17 carvedilol [Coreg] 3.125 mg PO BID #60 tab 12/07/17 levothyroxine [Synthroid] 100 mcg PO DAILY@0600 #30 tab 12/07/17 hydromorphone [Dilaudid] 2 mg PO Q6H PRN #12 tab 12/16/17 Allergies Allergy/AdvReac Type Severity Reaction Status Date / Time atorvastatin Allergy Severe rash Verified 12/16/17 17:34 Sulfa (Sulfonamide Allergy Severe Rash Verified 12/16/17 17:34 Antibiotics) aspirin Allergy Unknown Abdominal Verified 12/16/17 17:34 Pain prednisone Allergy Unknown Muscle Pain Verified 12/16/17 17:34 rosuvastatin AdvReac Severe Muscle Pain Verified 12/16/17 17:34 IRENE AdvReac Unknown Swelling Uncoded 12/16/17 17:34 Review of Systems Constitutional Denies chills and Denies fever(s) Eyes Reports system reviewed and no additional complaints, except as [facility] E[facility] Reports system reviewed and no additional complaints, except as [facility] Cardiovascular Denies chest pain, Denies palpitations and Denies dyspnea Respiratory Denies chest congestion and Denies cough Gastrointestinal Denies constipation, Reports loose stools and Reports other (Black stools) Genitourinary Reports system reviewed and no additional complaints, except as [facility] Musculoskeletal Denies myalgias and Denies arthralgias Neurologic Reports system reviewed and no additional complaints, except as [facility] Endocrine Reports system reviewed and no additional complaints, except as [facility] Medical History Medical History Peripheral artery disease (Acute) Abnormal digestive tract function (Acute) Hypercholesteremia (Acute) HTN (hypertension) (Acute) Bone cancer (Acute) FH: CABG (coronary artery bypass surgery) (Acute) Aortic stenosis (Acute) COPD (chronic obstructive pulmonary disease) (Acute) Myocardial infarct (Acute) Prostate cancer (Acute) Surgical History Surgical History History of repair of aneurysm of abdominal aorta using endovascular stent graft (Acute) Hx of CABG (Acute) H/O splenectomy (Acute) Social History Social History Substance History: No History of Abuse Second Hand Smoke Exposure: No Smoking Status: Former smoker Tobacco Type: Cigarettes How Often Do You Have a Drink Containing Alcohol: Never Recent Travel in [place] within the Last 8 Weeks: No Recent Out of Country Travel within the Last 8 Weeks: No Immunization History Tetanus Immunization: >5 Years Hx Influenza Vaccine This Season: No Exam Narrative Exam Narrative: GENERAL: Well-developed well-nourished male in no acute respiratory distress. The patient does appear to be slightly anxious. SKIN: Focused skin assessment warm/dry. HEAD: Atraumatic. Normocephalic. EYES: Pupils equal and round. No scleral icterus. No injection or drainage. ENT: No nasal bleeding or discharge. Mucous membranes pink and moist. NECK: Trachea midline. Supple. CARDIOVASCULAR: Regular rate and rhythm. No murmur appreciated. RESPIRATORY: No accessory muscle use. Clear to auscultation. Breath sounds equal bilaterally. GASTROINTESTINAL: Abdomen soft, non-tender, nondistended. No rebound or guarding. RECTAL EXAM: No masses or tenderness, stool is brown. Tested Hemoccult negative. MUSCULOSKELETAL: No obvious deformities. No clubbing. No cyanosis. No edema. NEUROLOGICAL: Awake and alert. No obvious cranial nerve deficits. Motor grossly within normal limits. Normal speech. Course Hospital Course: Patient with coronary disease and recent and STEMI. Due to the fact that her initial troponin was 0.1 and repeat delta was increased as well as a recurrent episode of chest pain will admit to rule out ACS. Otherwise hemodynamically stable in no discomfort or distress. Initial Documented Vital Signs Temperature 98.4 F 12/16/17 16:54 Pulse Rate 78 12/16/17 16:54 Respiratory Rate 16 12/16/17 16:54 Blood Pressure 194/81 H 12/16/17 16:54 Pulse Oximetry 98 12/16/17 16:54 Last Documented Vital Signs Temperature 98 F 12/17/17 04:00 Pulse Rate 88 12/17/17 04:00 Respiratory Rate 20 12/17/17 04:00 Blood Pressure 155/72 H 12/17/17 04:00 Pulse Oximetry 98 12/17/17 04:00 Medical Decision Making [facility] Narrative Medical decision making narrative: 72-year-old male with a history of vascular disease, hypertension, dyslipidemia, metastatic prostate cancer, presents today with complaints of lower abdominal pain with black stool. Patient has heme- negative stool on exam. Patient's H&H are stable. He was under the impression that he would need emergent vascular surgery. He called Dr. Franco's office and was told to come here for evaluation as there was a vascular surgeon on consult. I spoke with Dr. Cooper who is on-call. He states that upon hearing the results of his CT scan from the , there is nothing urgently that would need to be done at this time. He will come and evaluate the patient at this time. I spoke with the patient and his and discussed all the findings and the CT scan results. I informed him that it would likely be no emergent procedure done. EKG showed no evidence of acute changes. CK was within normal limits. Troponin was 0.1. There is a 3 hour delta pending at this time. If it is negative, he will be discharged and follow-up as below. He will likely be discharged and I anticipate will need to follow-up with his oncologist, Dr. Alvarez for possible new metastatic disease throughout the pelvis. I will write him a prescription for 3 days of Dilaudid which he was taking at home. This seems to control his discomfort. I checked E- force and his last prescription was filled in the end of October. Differential Diagnosis Differential Diagnosis: GI bleed versus aortic injury versus peripheral vascular disease Lab Data Lab results reviewed: Yes I reviewed the patient's lab results. Result diagrams: 12/16/17 17:55 12/16/17 17:55 Lab Results 12/16/17 12/16/17 12/16/17 Range/Units 17:55 17:55 17:55 WBC 7.3 (4.0-11.0) th/mm3 RBC 3.49 L (4.50-5.90) mil/mm3 Hgb 11.5 L (13.0-17.0) gm/dL Hct 33.5 L (39.0-51.0) % MCV 96.0 (80.0-100.0) fL MCH 32.8 (27.0-34.0) pg MCHC 34.2 (32.0-36.0) % RDW 13.5 (11.6-17.2) % Plt Count 607 H D (150-450) th/mm3 MPV 8.2 (7.0-11.0) fL Prelim Diff (Auto) [employer] Operations Manager Neut % (Auto) 51.2 (16.0-70.0) % Lymph % (Auto) 21.9 (9.0-44.0) % [place] % (Auto) 11.9 H (0.0-8.0) % Eos % (Auto) 13.7 H (0.0-4.0) % Baso % (Auto) 1.3 (0.0-2.0) % Neut # (Auto) 3.7 (1.8-7.7) th/mm3 Lymph # (Auto) 1.6 (1.0-4.8) th/mm3 [place] # (Auto) 0.9 (0.0-0.9) th/mm3 Eos # (Auto) 1.0 H (0.0-0.4) th/mm3 Baso # (Auto) 0.1 (0.0-0.2) th/mm3 WBC Differential . Differential Comment Auto diff final PT 10.1 (9.8-11.6) sec INR 1.0 Ratio APTT 28.1 (24.3-30.1) sec Sodium 137 (136-145) meq/L Potassium 3.6 (3.5-5.1) meq/L Chloride 103 (98-107) meq/L Carbon Dioxide 21.5 (21.0-32.0) meq/L Anion Gap 13 (5-15) meq/L BUN 12 (7-18) mg/dL Creatinine 0.82 (0.60-1.30) mg/dL Estimated GFR Greater than 89 (>89) mL/min Random Glucose 99 (74-106) mg/dL Calcium 8.8 (8.5-10.1) mg/dL Total Bilirubin 0.2 (0.2-1.0) mg/dL AST 10 L (15-37) U/L ALT 11 L (12-78) U/L Alkaline Phosphatase 48 (45-117) U/L Total Creatine Kinase (39-308) U/L Troponin I (0.02-0.05) ng/mL Total Protein 7.0 (6.4-8.2) g/dL Albumin 3.3 L (3.4-5.0) g/dL 12/16/17 12/16/17 12/17/17 Range/Units 17:55 20:15 01:50 WBC (4.0-11.0) th/mm3 RBC (4.50-5.90) mil/mm3 Hgb (13.0-17.0) gm/dL Hct (39.0-51.0) % MCV (80.0-100.0) fL MCH (27.0-34.0) pg MCHC (32.0-36.0) % RDW (11.6-17.2) % Plt Count (150-450) th/mm3 MPV (7.0-11.0) fL Prelim Diff (Auto) Neut % (Auto) (16.0-70.0) % Lymph % (Auto) (9.0-44.0) % [place] % (Auto) (0.0-8.0) % Eos % (Auto) (0.0-4.0) % Baso % (Auto) (0.0-2.0) % Neut # (Auto) (1.8-7.7) th/mm3 Lymph # (Auto) (1.0-4.8) th/mm3 [place] # (Auto) (0.0-0.9) th/mm3 Eos # (Auto) (0.0-0.4) th/mm3 Baso # (Auto) (0.0-0.2) th/mm3 WBC Differential Differential Comment PT (9.8-11.6) sec INR Ratio APTT (24.3-30.1) sec Sodium (136-145) meq/L Potassium (3.5-5.1) meq/L Chloride (98-107) meq/L Carbon Dioxide (21.0-32.0) meq/L Anion Gap (5-15) meq/L BUN (7-18) mg/dL Creatinine (0.60-1.30) mg/dL Estimated GFR (>89) mL/min Random Glucose (74-106) mg/dL Calcium (8.5-10.1) mg/dL Total Bilirubin (0.2-1.0) mg/dL AST (15-37) U/L ALT (12-78) U/L Alkaline Phosphatase (45-117) U/L Total Creatine Kinase 69 (39-308) U/L Troponin I 0.10 H 0.11 H 0.11 H (0.02-0.05) ng/mL Total Protein (6.4-8.2) g/dL Albumin (3.4-5.0) g/dL Discharge Plan Discharge Disposition Patient Disposition: 30 Still Patient Discharge Condition Condition: Stable Discharge Details Diagnosis: Abdominal pain, Vascular disease, Prostate cancer Physicians Team ED Provider: Boyd Wadsworth Primary Care Provider: Kian Alonzo Attending Provider: Adin Kaur Other Providers: Rudolph Camacho Discharge Interventions Interventions: ED Discharge Assessment Last Done: 12/17/17 01:52 Vital Signs Last Done: 12/16/17 18:00 Status ED Status: Left Department Discharge Information Discharge Date/Time: 12/17/17 01:52
[2017-12-16] MEDS ORDERED: Diatrizoate Meglum/Diatrizoate Sod Liq 9 ML UDC ONE (19:42)
[2017-12-16 19:59] LABS: Troponin I 0.1 ng/mL (0.02-0.05)
--- NOTE | 2017-12-16 20:49 | MB ---
cc: Katie Cooper MD, Slobodan MD DATE: 12/16/2017 REASON FOR CONSULTATION: Ischemia of the legs, abdominal pain, possible mesenteric ischemia. HISTORY OF PRESENT ILLNESS: This 72-year-old gentleman with a complex medical history and a known vasculopath presents to the hospital with complaints of abdominal pain and black stool. In the meantime, stool was noted not to be melanotic and the issue remains of the abdominal pain. PAST MEDICAL HISTORY: Complex. The patient is known metastatic prostate cancer with retroperitoneal lymphadenopathy, hyperlipidemia, hypertension, and peripheral vascular disease for which he was seen by Dr. Real and Dr. Franco. About 10 days ago, the patient had a non-ST [place] for which he was treated by Dr. Mohamud. The patient denies vomiting, nausea or any other issues. His walking is very impaired, due to severe pain in both legs. PHYSICAL EXAMINATION: GENERAL: Reveals a pleasant 72-year-old gentleman. HEENT: Normocephalic. No trauma to the head. Pupils are equal, reactive. Extraocular muscles intact. NECK: Supple. Bilateral carotid pulses. No bruits. CHEST: Clear, bilateral breath sounds. HEART: Regular rhythm. Scar from median sternotomy noted. ABDOMEN: Soft. No rebound, no guarding, no masses. On palpation, sort of diffusely tender but no specific area of tenderness or concern. Groins are normal. EXTREMITIES: The patient actually has palpable femoral pulses on the right side, worse than left. He has dopplerable popliteal pulses and posterior tibial and dorsalis pedis by Doppler. IMPRESSION AND RECOMMENDATIONS: This pleasant gentleman has abdominal pain of unknown origin. He had previous abdominal aortic aneurysm repair using the stent graft. At this point, he has a 50% stenosis of the iliac on the right and patent on the left, SMA stent which is in position and SMA is open on the CT scan. His abdominal exam is quite benign. I do not believe it is related to any vascular issue at this time. The patient does not need any vascular intervention immediately or at this time. I fully agree with Dr. Franco that possibly revascularizing the inflow to the right leg might help the patient with some of his difficulties walking. In addition, the patient has some lymphadenopathy and in face of metastatic prostate cancer, probably majority of his pain is originating from the spine and is neurogenic in origin. The patient has had several attempts to quell the pain with steroids and other means of management, and, at this point, probably it would not be a bad idea to visit an acupuncture reputable group to look at this. Other than that, the patient has no acute problems and I fully agree with Dr. Franco's plan. MD JOSE You/ , 08:25 PM , 08:47 PM
[2017-12-16] MEDS ORDERED: HYDROmorphone PF Inj 1 MG/ML Ampul IV.PUSH PRN (22:49)
[2017-12-16] MEDS ORDERED: Temazepam 15 MG Capsule PO PRN (22:50)
[2017-12-16] MEDS ORDERED: Bisacodyl 10 MG Supp RECTAL PRN (22:50)
[2017-12-16] MEDS ORDERED: Acetaminophen 325 MG Tablet PO PRN (22:50)
--- NOTE | 2017-12-16 22:52 | P.HPIM ---
History of Present Illness Primary Care Physician: Kian Alonzo MD History of Present Illness: This is a 72-year-old male with PMH of HTN, CAD s/p CABG, AAA Repair, Right CEA , Metastatic Prostate CA and recent NSTEMI who presented to the ER w/ complaints of chest pain x3 days. States chest pain is substernal, intermittent , 10/10, w/ radiation to left chest. Recent admit 12/04/17 for NSTEMI, s/p Cath w / significant 3 vessel disease, patent 3/4 grafts, 60% stenosis vein graft and 100% occlusion of obstuse marginal, in light of metastatic prostate ca and contraindication to anticoagulation, recommendation for medical management. Also notes episodes of black stool, however Hemoccult negative on exam. S/p eval by Dr. Humphries in ER for 50% stenosis iliac on right, patent left iliac, no indication for vascular intervention. BP 160/72, HR 75, O2 sat 96% on RA, Afebrile. CBC essentially at baseline. INR 1.0. Initial troponin 0.10. Pt was to be discharged home if subsequent trop trending down, however repeat Trop 0.11 w/ recurrent episodes of intermittent chest pain. - Diagnosis (1) Elevated troponin (2) Abdominal pain (3) Aortic stenosis (4) Prostate CA Review of Systems All other systems reviewed negative except as [facility] - History History Provided By: Patient - Medical History Medical History: Medical History (Last Updated 12/16/17 @ 17:28 by Amanda Ashton) Peripheral artery disease (Acute) Abnormal digestive tract function (Acute) Hypercholesteremia (Acute) HTN (hypertension) (Acute) Bone cancer (Acute) FH: CABG (coronary artery bypass surgery) (Acute) Aortic stenosis COPD (chronic obstructive pulmonary disease) Myocardial infarct Prostate cancer - Surgical History Surgical History: Surgical History (Last Updated 12/16/17 @ 17:21 by Amanda Ashton) History of repair of aneurysm of abdominal aorta using endovascular stent graft (Acute) Hx of CABG (Acute) H/O splenectomy (Acute) - Tobacco History Second Hand Smoke Exposure: No Smoking Status: Former smoker Tobacco Type: Cigarettes - Alcohol History How Often Do You Have a Drink Containing Alcohol: Never - Substance Use History Substance History: No History of Abuse - Travel History Recent Travel in the [place] Within the Last 8 Weeks: No Recent Travel Out of the Country Within the Last 8 Weeks: No - Immunization History Tetanus Immunization: >5 Years Hx Influenza Vaccine This Season: No Medications and Allergies Allergies Allergy/AdvReac Type Severity Reaction Status Date / Time atorvastatin Allergy Severe rash Verified 12/16/17 17:34 Sulfa (Sulfonamide Allergy Severe Rash Verified 12/16/17 17:34 Antibiotics) aspirin Allergy Unknown Abdominal Verified 12/16/17 17:34 Pain prednisone Allergy Unknown Muscle Pain Verified 12/16/17 17:34 rosuvastatin AdvReac Severe Muscle Pain Verified 12/16/17 17:34 IRENE AdvReac Unknown Swelling Uncoded 12/16/17 17:34 Home Medications Medication Instructions Recorded Confirmed Type enzalutamide [Xtandi] 160 mg PO DAILY 12/04/17 12/16/17 History hydromorphone [Dilaudid] 6 mg PO Q4-6H PRN 12/04/17 12/16/17 History omeprazole 20 mg PO DAILY PRN 12/04/17 12/16/17 History albuterol sulfate [ProAir HFA] 1 puff INHALATION Q4-6H PRN 12/16/17 12/16/17 History budesonide-formoterol [Symbicort] 2 puff INHALATION DAILY 12/16/17 12/16/17 History isosorbide mononitrate 30 mg PO DAILY 12/16/17 12/16/17 History lisinopril 10 mg PO BID 12/16/17 12/16/17 History Exam Vital signs: Vital Signs 12/16/17 16:54 12/16/17 17:33 12/16/17 18:00 Temperature 98.4 F Pulse Rate 78 75 61 Respiratory Rate 16 16 20 Blood Pressure 194/81 H 160/72 H 148/67 H Pulse Oximetry 98 96 94 L 12/16/17 18:50 Temperature Pulse Rate Respiratory Rate 16 Blood Pressure Pulse Oximetry Intake & Output 12/16/17 12/16/17 12/17/17 06:59 18:59 06:59 Weight 89.811 kg Narrative: PE: GENERAL: Very pleasant middle-aged white male in no acute distress. at bedside. HEENT: PERRLA, EOMI. No scleral icterus or conjunctival pallor. No lid lag or facial droop. CARDIOVASCULAR: Regular rate and rhythm. No obvious murmurs to auscultation. No chest tenderness to palpation. Right chest port RESPIRATORY: No obvious rhonchi or wheezing. Clear to auscultation. Breath sounds equal bilaterally. GASTROINTESTINAL: Abdomen soft, non-tender, nondistended. BS normal. MUSCULOSKELETAL: Extremities without clubbing, cyanosis, or edema. No obvious deformities. NEUROLOGICAL: Awake, alert and oriented x4. No focal neurologic deficits. Moving both upper and lower extremities spontaneously. Results - Labs CBC & Chem 7: 12/16/17 17:55 12/16/17 17:55 Labs: Short CBC 12/16/17 Range/Units 17:55 WBC 7.3 (4.0-11.0) th/mm3 Hgb 11.5 L (13.0-17.0) gm/dL Hct 33.5 L (39.0-51.0) % Plt Count 607 H D (150-450) th/mm3 BMP 12/16/17 17:55 Sodium 137 Potassium 3.6 Chloride 103 Carbon Dioxide 21.5 BUN 12 Creatinine 0.82 Calcium 8.8 Cardiac Enzymes 12/16/17 12/16/17 Range/Units 17:55 20:15 Total Creatine Kinase 69 (39-308) U/L Troponin I 0.10 H 0.11 H (0.02-0.05) ng/mL Liver Function 12/16/17 Range/Units 17:55 Total Bilirubin 0.2 (0.2-1.0) mg/dL AST 10 L (15-37) U/L ALT 11 L (12-78) U/L Alkaline Phosphatase 48 (45-117) U/L Albumin 3.3 L (3.4-5.0) g/dL Caprini VTE Risk Assessment Caprini VTE Risk Assessment: No/Low Risk (score <= 1) Caprini Risk Assessment Model: Point Value = 1 Point Value = 2 Point Value = 3 Point Value = 5 Age 41-60 Minor surgery BMI > 25 kg/m2 Swollen legs Varicose veins or History of unexplained or recurrent spontaneous Oral contraceptives or hormone replacement Sepsis (< 1 month) Serious lung disease, including pneumonia (< 1 month) Abnormal pulmonary function Acute myocardial infarction Congestive heart failure (< 1 month) History of inflammatory bowel disease Medical patient at bed rest Age 61-74 Arthroscopic surgery Major open surgery (> 45 min) Laparoscopic surgery (> 45 min) Malignancy Confined to bed (> 72 hours) Immobilizing plaster cast Central venous access Age >= 75 History of VTE Family history of VTE Factor V Leiden Prothrombin [id number] Lupus anticoagulant Anticardiolipin antibodies Elevated serum homocysteine Heparin-induced thrombocytopenia Other congenital or acquired thrombophilia Stroke (< 1 month) Elective arthroplasty Hip, pelvis, or leg fracture Acute spinal cord injury (< 1 month) Prophylaxis Regimen: Total Risk Factor Score Risk Level Prophylaxis Regimen 0-1 Low Early ambulation 2 Moderate Order ONE of the following: *Sequential Compression Device (SCD) *Heparin 5000 units SQ BID 3-4 Higher Order ONE of the following medications: *Heparin 5000 units SQ TID *Enoxaparin/Lovenox 40 mg SQ daily (WT < 150 kg, CrCl > 30 mL/min) *Enoxaparin/Lovenox 30 mg SQ daily (WT < 150 kg, CrCl > 10-29 mL/min) *Enoxaparin/Lovenox 30 mg SQ BID (WT < 150 kg, CrCl > 30 mL/min) AND/OR *Sequential Compression Device (SCD) 5 or more Highest Order ONE of the following medications: *Heparin 5000 units SQ TID (Preferred with Epidurals) *Enoxaparin/Lovenox 40 mg SQ daily (WT < 150 kg, CrCl > 30 mL/min) *Enoxaparin/Lovenox 30 mg SQ daily (WT < 150 kg, CrCl > 10-29 mL/min) *Enoxaparin/Lovenox 30 mg SQ BID (WT < 150 kg, CrCl > 30 mL/min) AND *Sequential Compression Device (SCD) Assessment and Plan - Assessment (1) Elevated troponin Code(s): R74.8 - Abnormal levels of other serum enzymes Status: Acute (2) Abdominal pain Code(s): R10.9 - Unspecified abdominal pain Status: Acute (3) Aortic stenosis Code(s): I35.0 - Nonrheumatic aortic (valve) stenosis Status: Acute (4) Prostate CA Code(s): C61 - Malignant neoplasm of prostate Status: Acute - Plan A/P: 1. Elevated Trop: Trop 0.10, repeat 0.11, recent NSTEMI s/p Cath by Dr. Mohamud w/ no intervention, recommendation for medical management. Reports intermittent chest pain. Continue w/ NTG/Morphine as needed. Check serial cardiac enzymes, consult Dr. Mohamud for further recommendations/evaluation. 2. Aortic Stenosis: c/o abdominal pain, previous AAA Repair w/ stent following w/ Dr. Franco, s/p eval by Dr. Humphries in ER, found to have 50% stenosis right iliac, patent left, no vascular intervention indicated and unlikely cause of pain. Will continue w/ analgesics/antiemetics as needed. 3. Metastatic Prostate CA: Follows w/ Dr. Alvarez as outpatient, currently undergoing treatment, will consult as needed. 4. Abdominal Pain: secondary to all of the above, continue w/ analgesics/ antiemetics as needed, resume home Dilaudid PO, Dilaudid IV prn. 5. DVT Prophylaxis: SCD/Teds 6. Social work for d/c planning as needed. 7. Case discussed w/ ER physician at length, labs/records/imaging reviewed by me. (2) Abdominal pain Qualifiers: Abdominal location: lower abdomen, unspecified Qualified Code(s): R10.30 - Lower abdominal pain, unspecified
[2017-12-16] MEDS ORDERED: Pantoprazole Sodium 20 MG DR Tablet PO PRN (23:02)
[2017-12-16] MEDS ORDERED: HYDROmorphone PF Inj 2 MG/ML Vial IV.PUSH PRN (23:30)
[2017-12-17] MEDS ORDERED: Levothyroxine 100 MCG Tablet PO SCH (06:00)
[2017-12-17 08:01] LABS: Alanine Aminotransferase 13 U/L (12-78); Albumin 3.3 g/dL (3.4-5.0); Anion Gap 10 meq/L (5-15); Aspartate Aminotransferase 9 U/L (15-37); Blood Urea Nitrogen 11 mg/dL (7-18); Calcium 8.8 mg/dL (8.5-10.1); Carbon Dioxide 26.6 meq/L (21.0-32.0); Chloride 102 meq/L (98-107); Glomerular Filtration Rate 83 mL/min (>89); Glucose,Random 102 mg/dL (74-106); Potassium 3.9 meq/L (3.5-5.1); Sodium 139 meq/L (136-145)
[2017-12-17 08:05] LABS: Alkaline Phosphatase 44 U/L (45-117); Total Protein 7.2 g/dL (6.4-8.2); Troponin I 0.09 ng/mL (0.02-0.05)
--- NOTE | 2017-12-17 08:24 | MB ---
cc: Rudolph Camacho MD DATE: 12/17/2017 REASON FOR CONSULTATION: Elevated troponin and ASHD. HISTORY OF PRESENT ILLNESS: Mr. Balderrama is a 72-year-old white gentleman with history of ASHD, who suffered a non-ST elevation myocardial infarction back on 12/04/2017. He was recently discharged from the hospital and undergoing workup for abdominal discomfort and lower extremity PAD. He has been having abdominal discomfort for over the past few weeks. He came to the emergency room last night for evaluation of his abdominal discomfort and during his evaluation, he underwent a troponin I test, which was mildly elevated. He has had no recurrent chest discomfort since his myocardial infarction earlier this month. He underwent cardiac catheterization at that time, which revealed severe 3-vessel disease and 3 out of 4 patent bypass grafts. He was recommended continued medical therapy due to the nature of his disease. He does have anticipated lower extremity revascularization in the future by Dr. Franco, which has not yet been scheduled. He gets claudication walking less than one block. The patient is currently lying in bed and says he has some mild abdominal discomfort, but denies any chest discomfort any time in the past few days. His past medical history is significant for ASHD, prior myocardial infarction, peripheral arterial disease with claudication. ALLERGIES: INCLUDE: 1. ATORVASTATIN. 2. SULFA ANTIBIOTICS 3. ASPIRIN. 4. PREDNISONE. PAST MEDICAL HISTORY: Coronary artery disease, myocardial infarction, hypertension, dyslipidemia, peripheral arterial disease. He has hypothyroidism and is on replacement. He has metastatic prostate cancer, currently on maintenance hormone therapy. Denies history of diabetes, stroke, or heart failure. PAST SURGICAL HISTORY: Includes coronary artery bypass grafting x 4 vessels, 3 of which were patent on recent cardiac catheterization earlier this month by Dr. Mohamud revealed severe 3-vessel coronary artery disease with small vessel disease. There was a patent internal mammary graft to LAD. A patent vein graft to the second obtuse marginal branch with a 60% stenosis. An occluded saphenous vein graft to the first obtuse marginal branch and a patent saphenous vein graft to the right coronary artery. He was recommended continued medical therapy at that time. Other past surgical history includes possible GI/mesenteric stenting and a splenectomy. MEDICATIONS; 1. Ventolin inhaler 1 puff every 4 hours p.r.n. 2. Norvasc 5 mg daily. 3. Dulcolax suppositories p.r.n. 4. Symbicort 2 puffs inhalation daily. 5. Carvedilol 3.125 mg p.o. b.i.d. 6. Dilaudid 6 mg every 4 hours p.r.n. pain. 7. Imdur 30 mg daily. 8. Synthroid 100 mcg daily. 9. Prinivil 10 mg p.o. b.i.d. 10. Nitropaste 0.5 inches chest wall every 6 hours. 11. Protonix 20 mg p.r.n. 12. Restoril 15 mg at bedtime p.r.n. SOCIAL HISTORY: The patient drinks 2-3 alcoholic beverages a week. He does not smoke. He was a previous cigarette smoker. He is , living with his . FAMILY HISTORY: Noncontributory. REVIEW OF SYSTEMS: Except for that mentioned in the HPI, a 12-point review of systems is otherwise negative. PHYSICAL EXAMINATION: GENERAL: Reveals an elderly, overweight, white male lying in bed in no distress at this time. VITAL SIGNS: Blood pressure 155/72 mmHg, heart rate is 88 and regular, respiratory rate 20, temperature 98 degrees, oxygen saturation 98% on room air. HEENT: Head is normocephalic, atraumatic. Pupils equal, round, reactive to light. Sclerae are anicteric. Extraocular movements intact. NECK: Supple. There is no adenopathy. There is no jugular venous distention at 45 degrees. Carotid upstrokes are normal. No bruits. Thyroid exam is normal. LUNGS: Clear. Midline sternotomy scar is noted and the sternum is stable. He has an Tabbwy-S-Pdeb in the right subclavian area. HEART: PMI is not displaced. S1, S2 are normal. No murmurs, gallops, clicks or rubs. ABDOMEN: Soft. There is mild epigastric tenderness with deep palpation. No rebound. No hepatosplenomegaly, masses, or bruits. EXTREMITIES: No cyanosis, clubbing or edema. There is +2 pulses distally in lower extremities. NEUROLOGIC: Nonfocal. EKG shows a sinus rhythm, lateral T-wave abnormalities, consider ischemia. Abnormal EKG. No change compared to an EKG from 12/04/2017. LABORATORY DATA: White count 7.3; hemoglobin 11.5; hematocrit 33.5; platelet count 607,000. Coags are normal. Chemistries are normal. BUN 12, creatinine 0.82, calcium 8.8, AST 10. Troponin I was 0.10 on this admission at 1755 last night, 0.11 at 2015 last night and 0.11 at 0150 this morning. TSH 3.16. IMPRESSION: 1. Persistent elevation of troponin I, may be chronic or still resolving from his myocardial infarction back on 12/04/2017. 2. Severe 3-vessel coronary artery disease. 3. Angina pectoris, functional Class II. 4. Abdominal discomfort of uncertain etiology. 5. Peripheral arterial disease with bilateral lower extremity claudication. Awaiting intervention. 6. Hypertension, may need more aggressive control. 7. Hyperlipidemia. 8. Hypothyroidism, on replacement. RECOMMENDATIONS: His mildly elevated troponin I is not trending up, and I suspect that this is either a chronic basilar elevation or still coming down from his recent myocardial infarction. There is no evidence of ongoing ischemia or acute infarction at this time. I do not see any need for any further inpatient cardiac workup. Proceed with further workup of his abdominal discomfort as needed. His peripheral vascular disease otherwise appears to be stable at this time and can be dealt with as an outpatient. From a cardiac standpoint, he can be discharged to home with followup to Dr. Mohamud. I will follow him here as needed. Thank you for allowing us to participate in the care of this patient. MD MADALYN Darby/RAY , 07:50 AM , 08:23 AM
[2017-12-17 08:54] VITALS: RESP 18; TEMP 97.5; O2SAT 96
[2017-12-17] MEDS ORDERED: Lisinopril 10 MG Tablet PO SCH (09:00)
[2017-12-17] MEDS ORDERED: Enzalutamide [Xtandi] 160 MG PO SCH (09:00)
[2017-12-17] MEDS ORDERED: amLODIPine 5 MG Tablet PO SCH (09:00)
[2017-12-17] MEDS ORDERED: Isosorbide Mononitrate 30 MG ER 24HR Tablet (Imdur) PO SCH ×2 (09:00)
[2017-12-17] MEDS ORDERED: Senna/Docusate Sodium 8.6/50 MG Tablet PO SCH (09:00)
[2017-12-17] MEDS ORDERED: Budesonide-Formoterol 160/4.5 MCG 6 GM Inhaler INH SCH (09:00)
[2017-12-17] MEDS ORDERED: Isosorbide Mononitrate 60 MG ER 24HR Tablet (Imdur) PO SCH (09:15)
--- NOTE | 2017-12-17 09:18 | P.PNIM ---
Subjective Interval history: Patient says he is feeling fine. Denies ever having chest pain. Would like to go home. Patient reports he is compliant with his medication. Physical Exam Vital signs: Vital Signs 12/16/17 16:54 12/16/17 17:33 12/16/17 18:00 Temperature 98.4 F Pulse Rate 78 75 61 Respiratory Rate 16 16 20 Blood Pressure 194/81 H 160/72 H 148/67 H Pulse Oximetry 98 96 94 L 12/16/17 18:50 12/16/17 22:51 12/17/17 04:00 Temperature 98 F Pulse Rate 60 88 Respiratory Rate 16 16 20 Blood Pressure 150/68 H 155/72 H Pulse Oximetry 96 98 12/17/17 08:00 Temperature 97.5 F L Pulse Rate 67 Respiratory Rate 18 Blood Pressure 165/76 H Pulse Oximetry 96 Intake & Output 12/16/17 12/17/17 12/17/17 18:59 06:59 18:59 Weight 89.811 kg 90 kg Narrative: GENERAL: Sitting in bed. Appears comfortable. SKIN: Warm and dry. HEAD: Normocephalic. EYES: No scleral icterus. No injection or drainage. NECK: Supple, trachea midline. No JVD. CARDIOVASCULAR: Regular rate and rhythm without murmurs, gallops, or rubs. RESPIRATORY: Breath sounds equal bilaterally. No accessory muscle use. GASTROINTESTINAL: Abdomen soft, non-tender, nondistended. Positive bowel sounds MUSCULOSKELETAL: No cyanosis, or edema. BACK: Nontender without obvious deformity. No CVA tenderness. Results - Labs CBC & Chem 7: 12/16/17 17:55 12/17/17 06:30 Laboratory Results - last 24 hr 12/16/17 12/16/17 12/16/17 17:55 17:55 17:55 WBC 7.3 RBC 3.49 L Hgb 11.5 L Hct 33.5 L MCV 96.0 MCH 32.8 MCHC 34.2 RDW 13.5 Plt Count 607 H D MPV 8.2 Prelim Diff (Auto) [employer] Checker Neut % (Auto) 51.2 Lymph % (Auto) 21.9 [place] % (Auto) 11.9 H Eos % (Auto) 13.7 H Baso % (Auto) 1.3 Neut # (Auto) 3.7 Lymph # (Auto) 1.6 [place] # (Auto) 0.9 Eos # (Auto) 1.0 H Baso # (Auto) 0.1 WBC Differential . Differential Comment Auto diff final PT 10.1 INR 1.0 APTT 28.1 Sodium 137 Potassium 3.6 Chloride 103 Carbon Dioxide 21.5 Anion Gap 13 BUN 12 Creatinine 0.82 Estimated GFR Greater than 89 Random Glucose 99 Calcium 8.8 Total Bilirubin 0.2 AST 10 L ALT 11 L Alkaline Phosphatase 48 Total Creatine Kinase Troponin I Total Protein 7.0 Albumin 3.3 L 12/16/17 12/16/17 12/17/17 17:55 20:15 01:50 WBC RBC Hgb Hct MCV MCH MCHC RDW Plt Count MPV Prelim Diff (Auto) Neut % (Auto) Lymph % (Auto) [place] % (Auto) Eos % (Auto) Baso % (Auto) Neut # (Auto) Lymph # (Auto) [place] # (Auto) Eos # (Auto) Baso # (Auto) WBC Differential Differential Comment PT INR APTT Sodium Potassium Chloride Carbon Dioxide Anion Gap BUN Creatinine Estimated GFR Random Glucose Calcium Total Bilirubin AST ALT Alkaline Phosphatase Total Creatine Kinase 69 Troponin I 0.10 H 0.11 H 0.11 H Total Protein Albumin 12/17/17 06:30 WBC RBC Hgb Hct MCV MCH MCHC RDW Plt Count MPV Prelim Diff (Auto) Neut % (Auto) Lymph % (Auto) [place] % (Auto) Eos % (Auto) Baso % (Auto) Neut # (Auto) Lymph # (Auto) [place] # (Auto) Eos # (Auto) Baso # (Auto) WBC Differential Differential Comment PT INR APTT Sodium 139 Potassium 3.9 Chloride 102 Carbon Dioxide 26.6 Anion Gap 10 BUN 11 Creatinine 0.90 Estimated GFR 83 L Random Glucose 102 Calcium 8.8 Total Bilirubin 0.3 AST 9 L ALT 13 Alkaline Phosphatase 44 L Total Creatine Kinase Troponin I 0.09 H Total Protein 7.2 Albumin 3.3 L Assessment and Plan - Assessment (1) Elevated troponin Code(s): R74.8 - Abnormal levels of other serum enzymes Status: Acute (2) Abdominal pain Code(s): R10.9 - Unspecified abdominal pain Status: Acute (3) Aortic stenosis Code(s): I35.0 - Nonrheumatic aortic (valve) stenosis Status: Acute (4) Prostate CA Code(s): C61 - Malignant neoplasm of prostate Status: Acute - Plan // Elevated Trop: Trop 0.10, repeat 0.11, recent NSTEMI s/p Cath by Dr. Mohamud w/ no intervention, recommendation for medical management. Reports intermittent chest pain. Continue w/ NTG/Morphine as needed. Check serial cardiac enzymes, consult Dr. Mohamud for further recommendations/evaluation. = Patient seen by cardiology. Appreciate assistance. Cleared by cardiology for discharge. Will increase Imdur due to elevated blood pressures on admission. // Aortic Stenosis: c/o abdominal pain, previous AAA Repair w/ stent following w/ Dr. Franco, s/p eval by Dr. Humphries in ER, found to have 50% stenosis right iliac, patent left, no vascular intervention indicated and unlikely cause of pain. Will continue w/ analgesics/antiemetics as needed. = Appreciate Dr. Humphries assistance. Follow with Dr. Franco as outpatient. // Metastatic Prostate CA: Follows w/ Dr. Alvarez as outpatient, currently undergoing treatment, will consult as needed. //Abdominal Pain: secondary to all of the above, continue w/ analgesics/ antiemetics as needed, resume home Dilaudid PO. //DVT Prophylaxis: SCD/Teds Discharge Planning: Discharge home in good condition. Continue heart healthy diet. Activity as tolerated. Follow-up with primary care, vascular surgery, cardiology as outpatient. (2) Abdominal pain Qualifiers: Abdominal location: lower abdomen, unspecified Qualified Code(s): R10.30 - Lower abdominal pain, unspecified
[2017-12-17 10:09] VITALS: PULSE 71
[2017-12-17 10:26] VITALS: BP 161/74
--- NOTE | 2017-12-17 15:11 | ECG ---
Date Performed: 12/16/2017 Time Performed: 19:30:35 PTAGE: 72 years EKG: SINUS BRADYCARDIA WITH FIRST DEGREE AV BLOCK MODERATE T-WAVE ABNORMALITY, CONSIDER LATERAL ISCHEMIA When compared to previous tracing, no significant change. ABNORMAL ECG PREVIOUS TRACING : 12/04/2017 16.47 DOCTOR: Kee Fountain Interpretating Date/Time 12/17/2017 15:10:41
== END 2017-12-17 12:29 | disposition home or self-care (01) ==
LOC: NEPC 16:50 → NEDA 16:50 → NEPHCDU 16:50 → NEDA 12-17 01:52 → NEPHCDU 12-17 03:17
PROVIDERS: ADMIT Internal Medicine; ATTEND Internal Medicine

== ENCOUNTER 2018-01-05 05:14 | Inpatient (IN) ==
[2018-01-05] MEDS ORDERED: Metoprolol Tartrate 25 MG Tablet PO SCH (05:45)
[2018-01-05] MEDS ORDERED: Chlorhexidine Gluconate 2% 1 Pack (2 Cloths) TOPICAL SCH (05:45)
[2018-01-05] MEDS ORDERED: Sodium Chlor 0.9% Inj 500 ML IV.SIG SCH (06:00)
[2018-01-05] MEDS ORDERED: Protamine Sulfate Inj 50 MG/5 ML Vial ONE (08:01)
[2018-01-05] MEDS ORDERED: Heparin 10,000 UNITS/10 ML Vial (for IV use) ONE ×2 (08:01→09:42)
--- NOTE | 2018-01-05 08:15 | P.HPVS ---
History of Present Illness Chief Complaint: B LE leg pain, PAD History of Present Illness: 72 yo male with B LE leg pain, worse with walking. No rest pain. CTA shows multilevel disease. - Inpatient Certification If this patient has been admitted as an Inpatient: I certify that the inpatient services were ordered in accordance with Medicare regulations governing the order. This includes certification that hospital inpatient services are reasonable and necessary and in the case of services not specified as inpatient-only under 42 CFR 419.22(n), that they are appropriately provided as inpatient services in accordance to with the 2-midnight benchmark under 43 CFR 412.3(e) Estimated Total Length of Stay (Days): 2 Plans for Post Hospital Care: Home Review of Systems Constitutional: Denies chills, Denies fever(s) Cardiovascular: Denies chest pain Musculoskeletal: Reports abnormal walking PMFSH - History History Provided By: Patient - Medical History Medical History: Medical History (Last Reviewed 01/05/18 @ 08:13 by Spenser Franco MD) Peripheral artery disease (Acute) Abnormal digestive tract function (Acute) Hypercholesteremia (Acute) HTN (hypertension) (Acute) Bone cancer (Acute) FH: CABG (coronary artery bypass surgery) (Acute) CAD (coronary artery disease) Aortic stenosis COPD (chronic obstructive pulmonary disease) Myocardial infarct Prostate cancer - Surgical History Surgical History: Surgical History (Last Reviewed 01/05/18 @ 08:13 by Spenser Franco MD) History of repair of aneurysm of abdominal aorta using endovascular stent graft (Acute) Hx of CABG (Acute) H/O splenectomy (Acute) History of cardiac cath - Tobacco History Second Hand Smoke Exposure: No Smoking Status: Former smoker Tobacco Type: Cigarettes - Alcohol History How Often Do You Have a Drink Containing Alcohol: 2 to 3 times a week - Substance Use History Substance History: No History of Abuse - Travel History Recent Travel in the [place] Within the Last 8 Weeks: No Recent Travel Out of the Country Within the Last 8 Weeks: No Medications and Allergies Active Medications: Active Medications Chlorhexidine Gluconate (Chlorhexidine 2% Cloth) 3 pack TOPICAL BAKER TWAN Stop: 01/08/18 05:35 Last Admin: 01/05/18 05:30 Dose: 3 pack Sodium Chloride (Ns Inj) 500 mls @ 30 mls/hr IV.SIG .Q10H TWAN Stop: 01/08/18 05:35 Lactated Ringer's (Lr 1000 Ml Inj) 1,000 mls @ 30 mls/hr IV.SIG .Q24H [facility] Stop: 01/06/18 08:29 Last Admin: 01/05/18 06:00 Dose: 30 mls/hr Metoprolol Tartrate (Lopressor) 25 mg PO BAKER [facility] Stop: 01/08/18 05:35 Last Admin: 01/05/18 06:41 Dose: Not Given Povidone Iodine (Betadine 5% Antisepsis Kit) 1 applicatio EACH NARE BAKER [facility] Stop: 01/08/18 05:35 Last Admin: 01/05/18 06:00 Dose: 1 applicatio Allergies Allergy/AdvReac Type Severity Reaction Status Date / Time atorvastatin Allergy Severe rash Verified 01/05/18 05:57 Sulfa (Sulfonamide Allergy Severe Rash Verified 01/05/18 05:57 Antibiotics) aspirin Allergy Unknown Abdominal Verified 01/05/18 05:57 Pain prednisone Allergy Unknown Muscle Pain Verified 01/05/18 05:57 rosuvastatin AdvReac Severe Muscle Pain Verified 01/05/18 05:57 Home Medications Medication Instructions Recorded Confirmed Type enzalutamide [Xtandi] 160 mg PO DAILY 12/04/17 01/05/18 History hydromorphone [Dilaudid] 2 mg PO Q4-6H PRN 12/04/17 01/05/18 History omeprazole 20 mg PO DAILY PRN 12/04/17 01/05/18 History albuterol sulfate [ProAir HFA] 1 puff INHALATION Q4-6H PRN 12/16/17 01/05/18 History budesonide-formoterol [Symbicort] 2 puff INHALATION DAILY 12/16/17 01/05/18 History lisinopril 10 mg PO BID 12/16/17 01/05/18 History leuprolide (3 month) [Lupron Depot 11.25 mg IM [id number] 01/02/18 01/05/18 History (3 month)] Physical Exam Vital Signs / I&O: Vital Signs 01/05/18 05:50 Temperature 99 F Pulse Rate 70 Respiratory Rate 18 Blood Pressure 148/73 H Pulse Oximetry 95 Intake & Output 01/04/18 01/05/18 01/05/18 18:59 06:59 18:59 Weight 90.4 kg Other: Weight On Admission 90.4 kg Neuro: alert, oriented, no distress HEENT: NC/AT; anicteric sclera Neck: no JVD Heart: reg rate Lungs: clear B Abdomen: Nontender Vascular: nonpalpable pulses Laboratory Results - last 24 hr 01/05/18 05:55 Blood Type O Positive Blood Type Recheck Required Antibody Screen Negative Caprini VTE Risk Assessment Caprini VTE Risk Assessment: No/Low Risk (score <= 1) (intraop heparin, early ambulation) Caprini Risk Assessment Model: Point Value = 1 Point Value = 2 Point Value = 3 Point Value = 5 Age 41-60 Minor surgery BMI > 25 kg/m2 Swollen legs Varicose veins or History of unexplained or recurrent spontaneous Oral contraceptives or hormone replacement Sepsis (< 1 month) Serious lung disease, including pneumonia (< 1 month) Abnormal pulmonary function Acute myocardial infarction Congestive heart failure (< 1 month) History of inflammatory bowel disease Medical patient at bed rest Age 61-74 Arthroscopic surgery Major open surgery (> 45 min) Laparoscopic surgery (> 45 min) Malignancy Confined to bed (> 72 hours) Immobilizing plaster cast Central venous access Age >= 75 History of VTE Family history of VTE Factor V Leiden Prothrombin [id number] Lupus anticoagulant Anticardiolipin antibodies Elevated serum homocysteine Heparin-induced thrombocytopenia Other congenital or acquired thrombophilia Stroke (< 1 month) Elective arthroplasty Hip, pelvis, or leg fracture Acute spinal cord injury (< 1 month) Prophylaxis Regimen: Total Risk Factor Score Risk Level Prophylaxis Regimen 0-1 Low Early ambulation 2 Moderate Order ONE of the following: *Sequential Compression Device (SCD) *Heparin 5000 units SQ BID 3-4 Higher Order ONE of the following medications: *Heparin 5000 units SQ TID *Enoxaparin/Lovenox 40 mg SQ daily (WT < 150 kg, CrCl > 30 mL/min) *Enoxaparin/Lovenox 30 mg SQ daily (WT < 150 kg, CrCl > 10-29 mL/min) *Enoxaparin/Lovenox 30 mg SQ BID (WT < 150 kg, CrCl > 30 mL/min) AND/OR *Sequential Compression Device (SCD) 5 or more Highest Order ONE of the following medications: *Heparin 5000 units SQ TID (Preferred with Epidurals) *Enoxaparin/Lovenox 40 mg SQ daily (WT < 150 kg, CrCl > 30 mL/min) *Enoxaparin/Lovenox 30 mg SQ daily (WT < 150 kg, CrCl > 10-29 mL/min) *Enoxaparin/Lovenox 30 mg SQ BID (WT < 150 kg, CrCl > 30 mL/min) AND *Sequential Compression Device (SCD) Assessment and Plan - Plan R groin reconstruction, B LE angiogram with intervention Pt and agree to plan To OR Patient marked. Discharge Plannin-3 days
[2018-01-05] MEDS: ceFAZolin 2 GM Premix Inj 2 GM/50 ML PIGGYBACK IV.SIG ONE ×2 (08:54→14:32)
[2018-01-05] MEDS: Heparin/NS PF Inj 500 ML ONE ×2 (09:21→14:32)
[2018-01-05] MEDS ORDERED: Bupivacaine PF 0.5% Inj 30 ML Vial INFILTRATN ONE (09:22)
[2018-01-05] MEDS: Thrombin Topical 20,000 UNIT Spray Kit TOPICAL ONE ×2 (09:45→14:32)
[2018-01-05] MEDS ORDERED: HYDROmorphone PF Inj 2 MG/ML Vial ONE (10:21)
[2018-01-05] MEDS ORDERED: Iohexol 300 MG/ML 50 ML Vial (for Rad Diag) IVCONTRAST ONE ×2 (11:19→12:00)
[2018-01-05] MEDS ORDERED: Bisacodyl 10 MG Supp RECTAL PRN (11:50)
--- NOTE | 2018-01-05 11:50 | P.OP ---
Date of procedure: 01/05/18 Procedure: 1. R ilioprofunda bypass (8mm Dacron) 2. R WIRE DROPPER-SFA bypass (8mm Dacron) 3. B CATY orbital atherectomy 4. R CATY PHYSICAL THERAPY TECHNICIAN (8mm) 5. L CATY PHYSICAL THERAPY TECHNICIAN/stent (10x60 Protege) 6. Aortogram 7. L WIRE DROPPER Angioseal Implants: 1. 8mm Dacron (RIGHT groin) 2. 10x60 Protege stent (L CATY) 3. L WIRE DROPPER Angioseal Anesthesia: GETA Surgeon: Spenser Franco MD Life Agent: Estrella Shipman Estimated blood loss (mL): 200 IV fluids (mL): 2,800 Urine output (mL): 310 Pathology: none sent Operation and Findings: significant calcific disease R groin and B iliac arteries Successful revascularization bilaterally Strong R pedal Doppler signals palpable L pulses
[2018-01-05] MEDS ORDERED: Sodium Chlor 0.9% Inj 500 ML IV.SIG ONE (12:00)
[2018-01-05] MEDS ORDERED: Glycopyrrolate Inj 1 MG/5 ML Syringe IV.PUSH ONE (12:00)
[2018-01-05] MEDS ORDERED: Lidocaine PF 1% Inj 5 ML Syringe INFILTRATN ONE (12:00)
[2018-01-05] MEDS ORDERED: Neostigmine Inj 5 MG/5 ML Syringe IV.PUSH ONE (12:00)
[2018-01-05] MEDS ORDERED: fentaNYL Citrate Inj 100 MCG/2 ML Ampul ONE (12:33)
[2018-01-05] MEDS ORDERED: *Enalaprilat Inj 1.25 MG/ML Vial IV.PUSH ONE (12:48)
[2018-01-05] MEDS ORDERED: *morphine SULFATE 4 MG/ML PERIprocedure ONLY ONE (12:55)
--- NOTE | 2018-01-05 14:15 | P.PNVS ---
Subjective Post Op Day #: 0 Procedure: R ilioprofunda bypass/R TRANSPORTATION DIRECTOR-SFA bypass/B CATY orbital atherectomy/R CATY PLATE FILLER/ Subjective/Hospital Course: Pt laying flat alert in NAD Pt S/p R ilioprofunda bypass/R TRANSPORTATION DIRECTOR-SFA bypass/B CATY orbital atherectomy/R CATY PLATE FILLER/L CATY PLATE FILLER/stent Pt doing well Pt c/o mild right upper thigh discomfort LE warm w/ motor intact Palpable R/L DP/PT L>R Prevena wound vac to R groin intact B groins soft w/o swelling or hematoma Objective Vital Signs / I&O: Vital Signs 01/05/18 05:50 01/05/18 12:21 01/05/18 12:30 Temperature 99 F 97.7 F Pulse Rate 70 70 69 Respiratory Rate 18 20 14 Blood Pressure 148/73 H 167/67 H 161/70 H Pulse Oximetry 95 100 98 01/05/18 12:45 01/05/18 12:54 01/05/18 13:00 Temperature Pulse Rate 59 L 62 59 L Respiratory Rate 20 16 16 Blood Pressure 172/74 H 159/72 H 152/69 H Pulse Oximetry 98 98 98 Intake & Output 01/04/18 01/05/18 01/05/18 18:59 06:59 18:59 Intake Total 2850 / 2850 Output Total 510 / 510 Balance 2340 / 2340 Weight 90.4 kg Intake: IV 1050 / 1050 Heparin/NS PF Inj 500 ML @ 0 0 / 0 mls/hr .ROUTE .STK-MED ONE Rx#: [id number] LR 1000 mL Inj 1,000 ML @ 30 1000 / 1000 mls/hr IV.SIG .Q24H [facility] Rx#: [id number] Ancef 2 GM Premix Inj 2 gm In 50 / 50 50 ml @ 0 mls/hr IV.SIG .STK- MED ONE Rx#:[id number] Anesthesia Amount 1800 / 1800 Output: Estimated Blood Loss 200 / 200 Urine Amount (Catheter) 310 / 310 Indwelling Urethral Catheter 310 / 310 Other: Mode Setting Right Groin Continuous Weight On Admission 90.4 kg Exam: 70/m awake and alert in NAD B groins soft w/o swelling or hematoma Prevena wound vac to R groin intact B LE warm w/ motor intact Palpable R/L DP/PT L>R Laboratory Results - last 24 hr 01/05/18 05:55 Blood Type O Positive Blood Type Recheck Required Antibody Screen Negative Assessment and Plan - Plan 72/m s/p R groin reconstruction, B LE angiogram with intervention POD 0 Pt doing well Awaits bed placement Discharge Plannin-3 days
--- NOTE | 2018-01-05 15:15 | MP ---
cc: Spenser Franco MD DATE OF OPERATION: 01/05/2018 PREOPERATIVE DIAGNOSIS: Bilateral lower extremity claudication. POSTOPERATIVE DIAGNOSIS: Bilateral lower extremity claudication. PROCEDURE PERFORMED: 1. Ileal profunda bypass with 8 mm Dacron. 2. Common femoral to superficial femoral artery bypass with 8 mm Dacron. 3. Aortogram. 4. Right common iliac artery orbital atherectomy and angioplasty with an 8 mm balloon. 5. Left common iliac artery orbital atherectomy and angioplasty and stent with a 10 x 60 self-expanding stent. 6. Left common femoral artery Angio-Seal. ATTENDING SURGEON: Spenser Franco MD NET TRAINER SURGEON: Debra Shipman. ANESTHESIA: General. INDICATION FOR PROCEDURE: Mr. Balderrama is a 72-year-old gentleman with bilateral extremity claudication. He is taken to the operating room for combined hybrid therapy including open and endovascular revascularization. There was no prior catheterization based imaging available for my review. DESCRIPTION OF PROCEDURE: Informed consent was obtained from the patient and he was taken to the operating room and placed supine on the operating room table. Appropriate timeout was taken to ensure the patient's identity, operative site and planned procedure. The administration of 2 grams of Ancef was initiated prior to skin incision and will be discontinued after a single preoperative dose. Everyone in the room agreed with the timeout and we proceeded. He was prepped from his nipples to the toes. A vertical incision made in the patient's right groin and carried down through subcutaneous tissue with electrocautery. The external iliac artery was identified and dissected free circumferentially. The common femoral was completely dissected free and the profunda and SFA were dissected free for several centimeters. The patient was then systemically heparinized. Proximal control of the external iliac artery was obtained with profunda clamps and the profunda was clamped with a profunda clamp and the SFA was clamped with a profunda clamp. The common femoral artery including its bifurcation were all resected. The proximal external iliac artery was spatulated and endarterectomized, 8 mm Dacron was spatulated and sewn end-to-end with running 5-0 Prolene suture. At the completion, it was flushed and noted to be hemostatic. The profunda was endarterectomized and spatulated and the Dacron was cut to an appropriate length, spatulated and sewn end-to-end to the profunda with running 6-0 Prolene suture. At the completion, it was flushed and noted to be hemostatic. There was a palpable pulse in the profunda. The graft was clamped with 2 profunda clamps and a longitudinal graftotomy was made with an 11 blade, extended with Clayton scissors. Another piece of Dacron was then spatulated and sewn end-to-side to the graft with running 5-0 Prolene suture. At the completion, it was flushed and noted to be hemostatic and the graft was cut to appropriate length, spatulated and sewn end-to-end to the SFA with running 6-0 Prolene suture. At the completion, there was a nice palpable pulse in the SFA and in the profunda. A 21-gauge micropuncture needle was used to access the graft. This was exchanged using Selinger technique for a micropuncture sheath, through which a 0.035 Glidewire was introduced. The micropuncture sheath was exchanged for a 6-Serbian sheath and an aortogram was obtained. The aortogram demonstrated the patient to have densely calcified common iliac artery lesions bilaterally. A 21-gauge micropuncture needle to access the left common femoral artery. This was exchanged using Seldinger technique for a micropuncture sheath, through which a 0.035 Glidewire was introduced and the micropuncture sheath was exchanged for a 6-Serbian sheath. Over the right-hand side, through the VCF catheter, a ViperWire was then placed and the VCF catheter was removed and the entire common iliac artery was atherectomized with an orbital atherectomy device and postdilated with an 8 mm balloon. Completion angiogram showed excellent result without any recoil, extravasation or flow-limiting dissections. On the left hand side, a Glidewire was advanced and exchanged using a catheter for a ViperWire and the orbital atherectomy device was then passed up the left hand side through the percutaneous 6-Serbian access and the common iliac artery was atherectomized using the orbital atherectomy device and then post-dilated to 8 mm. The completion angiogram showed a residual dissection and this was treated with a 10 x 60 stent, which was postdilated to 9 mm. Completion angiogram showed excellent result without any recoil or extravasation. The wire, catheter and sheath were removed from the left groin and the groin was closed with an Angio-Seal. On the right hand side the wire, catheter and sheath were removed and the graftotomy was closed with 6-0 Prolene suture. The entire wounds were made hemostatic, infiltrated with Marcaine and closed with 2-0 Polysorb, 3-0 Polysorb and 4-0 Monocryl. The sponge and needle counts were correct at the end of the case. The heparin was administered prior to arterial clamping and was not reversed with protamine at the end of the case. The patient was then extubated and transported to the recovery room in stable condition. I was present, scrubbed, and performed the entire procedure. MD ROBERT Lopez/RAY , 02:45 PM , 02:55 PM
[2018-01-05] MEDS: Budesonide-Formoterol 160/4.5 MCG 6 GM Inhaler INH SCH (17:39)
[2018-01-05] MEDS: Senna/Docusate Sodium 8.6/50 MG Tablet PO SCH (21:58)
[2018-01-05] MEDS: Lisinopril 10 MG Tablet PO SCH (21:58)
[2018-01-05] MEDS: Famotidine 20 MG Tablet PO SCH (21:58)
[2018-01-06 06:23] LABS: Hematocrit 29.2 % (39.0-51.0); Hemoglobin 9.9 gm/dL (13.0-17.0); Mean Corpuscular HGB Conc 33.9 % (32.0-36.0); Mean Corpuscular Hemoglobin 32.3 pg (27.0-34.0); Mean Corpuscular Volume 95.4 fL (80.0-100.0); Mean Platelet Volume 7.5 fL (7.0-11.0); Platelet Count 321 th/mm3 (150-450); Red Blood Count 3.06 mil/mm3 (4.50-5.90); White Blood Count 13.5 th/mm3 (4.0-11.0)
[2018-01-06 06:47] LABS: Calcium 8.2 mg/dL (8.5-10.1); Carbon Dioxide 27.5 meq/L (21.0-32.0); Potassium 4.5 meq/L (3.5-5.1)
[2018-01-06] MEDS ORDERED: LEUPROLIDE 11.25 MG IM SCH (09:00)
[2018-01-06] MEDS ORDERED: ENZALUTAMIDE 160 MG PO SCH (09:00)
[2018-01-06] MEDS: Budesonide-Formoterol 160/4.5 MCG 6 GM Inhaler INH SCH (09:10)
[2018-01-06] MEDS: Senna/Docusate Sodium 8.6/50 MG Tablet PO SCH ×2 (09:10→21:44)
[2018-01-06] MEDS: Famotidine 20 MG Tablet PO SCH ×2 (09:11→21:44)
[2018-01-06] MEDS: Lisinopril 10 MG Tablet PO SCH ×2 (09:12→21:45)
[2018-01-06] MEDS: Levothyroxine 100 MCG Tablet PO SCH (09:13)
[2018-01-06] MEDS: amLODIPine 5 MG Tablet PO SCH (09:14)
[2018-01-06] MEDS: Isosorbide Mononitrate 30 MG ER 24HR Tablet (Imdur) PO SCH (09:14)
--- NOTE | 2018-01-06 09:46 | P.PNVS ---
Subjective Post Op Day #: 1 Procedure: R ilioprofunda bypass/R CONTROL CABINET ASSEMBLER-SFA bypass/B CATY orbital atherectomy/R CATY GUM PULLER/ Subjective/Hospital Course: looks great; pain controlled does c/o groin discomfort feet ok kerry po Objective Vital Signs / I&O: Vital Signs 01/05/18 12:21 01/05/18 12:30 01/05/18 12:45 Temperature 97.7 F Pulse Rate 70 69 59 L Respiratory Rate 20 14 20 Blood Pressure 167/67 H 161/70 H 172/74 H Pulse Oximetry 100 98 98 01/05/18 12:54 01/05/18 13:00 01/05/18 13:15 Temperature Pulse Rate 62 59 L 54 L Respiratory Rate 16 16 15 Blood Pressure 159/72 H 152/69 H 144/77 H Pulse Oximetry 98 98 96 01/05/18 13:30 01/05/18 14:00 01/05/18 15:00 Temperature 98 F Pulse Rate 53 L 56 L 55 L Respiratory Rate 13 17 17 Blood Pressure 149/72 H 133/63 134/68 Pulse Oximetry 97 92 L 95 01/05/18 16:00 01/05/18 16:11 01/05/18 17:00 Temperature Pulse Rate 62 60 Respiratory Rate 18 Blood Pressure Pulse Oximetry 01/05/18 17:28 01/05/18 18:16 01/05/18 19:00 Temperature Pulse Rate 58 L 54 L Respiratory Rate 18 18 Blood Pressure Pulse Oximetry 01/05/18 20:00 01/05/18 21:00 01/05/18 22:00 Temperature 97.8 F Pulse Rate 60 58 L 62 Respiratory Rate 18 Blood Pressure 120/62 Pulse Oximetry 97 01/05/18 23:00 01/06/18 00:00 01/06/18 01:00 Temperature 98 F Pulse Rate 61 58 L 58 L Respiratory Rate 18 Blood Pressure 130/60 Pulse Oximetry 97 01/06/18 02:00 01/06/18 03:00 01/06/18 04:00 Temperature 97.8 F Pulse Rate 60 63 60 Respiratory Rate 18 Blood Pressure 131/60 Pulse Oximetry 97 01/06/18 05:00 01/06/18 06:00 01/06/18 07:00 Temperature Pulse Rate 68 66 69 Respiratory Rate Blood Pressure Pulse Oximetry 01/06/18 08:00 Temperature Pulse Rate 72 Respiratory Rate Blood Pressure Pulse Oximetry Intake & Output 01/05/18 01/06/18 01/06/18 18:59 06:59 18:59 Intake Total 3260 / 3260 420 / 420 Output Total 760 / 760 400 / 400 Balance 2500 / 2500 20 / 20 Weight 94.2 kg Intake: IV 1050 / 1050 Heparin/NS PF Inj 500 ML @ 0 0 / 0 mls/hr .ROUTE .STK-MED ONE Rx#: [id number] LR 1000 mL Inj 1,000 ML @ 30 1000 / 1000 mls/hr IV.SIG .Q24H [facility] Rx#: [id number] Ancef 2 GM Premix Inj 2 gm In 50 / 50 50 ml @ 0 mls/hr IV.SIG .STK- MED ONE Rx#:[id number] Oral 410 / 410 420 / 420 Anesthesia Amount 1800 / 1800 Output: Urine 100 / 100 Estimated Blood Loss 200 / 200 Urine Amount (Catheter) 460 / 460 400 / 400 Indwelling Urethral Catheter 460 / 460 400 / 400 Other: Mode Setting Right Groin Continuous Exam: resting comfortably; R groin soft Prevena in place palpable DP bilaterally Laboratory Results - last 24 hr 18 01/06/18 05:57 05:57 WBC 13.5 H RBC 3.06 L Hgb 9.9 L Hct 29.2 L MCV 95.4 MCH 32.3 MCHC 33.9 RDW 14.0 Plt Count 321 MPV 7.5 Sodium 136 Potassium 4.5 Chloride 101 Carbon Dioxide 27.5 Anion Gap 8 BUN 10 Creatinine 0.88 Estimated GFR 86 L Random Glucose 118 H Calcium 8.2 L Assessment and Plan - Plan POD#1 s/p R groin reconstruction, B CATY orbital atherectomy and L CATY stent Looks great, palpable pulses b 1. OOB ad alexx, PT 2. D/C Ruiz 3. Ideally should have plavix daily. PT notes that interacts negatively with one of his PSA-blocking agents. Will ask Dr. Alvarez (oncology) to weigh in. Discharge Planning: Likely Sat (POD#2) to home
--- NOTE | 2018-01-06 18:52 | P.CON ---
History of Present Illness Service: Hematology/oncology Consult date: 01/06/18 Requesting Physician: Spenser Franco Reason for Consult: Metastatic Prostate Carcinoma. Primary Care Provider: Kian Alonzo MD Family Provider: Kian Alonzo MD Chief Complaint: Pain in right groin. Inability to void urine. History of Present Illness: Mr. Balderrama is a very pleasant 72-year-old man with a diagnosis of metastatic carcinoma of the prostate initially diagnosed in July 2014. He has been on palliative systemic therapeutic agents ever since, and has been heavily pretreated initially with androgen deprivation therapy and then upon progression he did receive systemic chemotherapy consisting of docetaxel followed by cabazitaxel. About a year ago he was transitioned to Xtandi in combination with Lupron. He has had a good biochemical and clinical response to this combination. The patient has extensive bony metastatic disease for which she has been on treatment with denosumab injections as well. Unfortunate patient has significant cardiovascular issues including coronary artery disease as well as peripheral arterial disease. Last month he suffered a myocardial infarction which was medically managed. During that hospitalization he reports symptoms of pain in his right lower extremity, he was found to have extensive arterial obstruction and was recommended surgical revascularization. He underwent surgery on 01/05/2018 with good cheondoism of arterial vascular flow. The patient was recommended initiation of antiplatelet therapy with Plavix, however this has a significant interaction with Xtandi. Hematology service is been asked to see him to discuss various antiplatelet therapy options. Review of Systems Constitutional: Denies anorexia Eyes: Denies blind spots, Denies blurry vision Ears, Nose, Mouth, and Throat: Denies abnormal hearing Cardiovascular: Denies chest pain, Denies chest pain at rest Comments: Vascular: Status post surgery in the right groin area with revascularization of arterial flow. Respiratory: Denies chest congestion, Denies cough, Denies coughing up blood Gastrointestinal: Denies abdominal pain, Denies belching Genitourinary: Denies blood in urine Comments: Reports not having been able to void urine since Ruiz catheter was removed 8 hours ago. Musculoskeletal: Reports back pain, Reports body aches, Reports decreased muscle mass, Reports joint pain, Denies abnormal walking Skin/Breast: Denies bleeding lesions Neurologic: Denies abnormal hearing Psychiatric: Denies abnormal sleep pattern Endocrine: Denies cold intolerance Hematologic/Lymphatic: Reports easy bleeding Allergic/Immunologic: Denies GI upset with certain foods PMFSH - History History Provided By: Patient - Medical History Medical History: Medical History (Last Reviewed 01/06/18 @ 08:38 by Bernabe Ramos) Peripheral artery disease (Acute) Abnormal digestive tract function (Acute) Hypercholesteremia (Acute) HTN (hypertension) (Acute) Bone cancer (Acute) FH: CABG (coronary artery bypass surgery) (Acute) Aortic stenosis CAD (coronary artery disease) COPD (chronic obstructive pulmonary disease) Myocardial infarct Prostate cancer - Surgical History Surgical History: Surgical History (Last Reviewed 01/06/18 @ 08:38 by Bernabe Ramos) History of repair of aneurysm of abdominal aorta using endovascular stent graft (Acute) Hx of CABG (Acute) H/O splenectomy (Acute) History of cardiac cath - Tobacco History Second Hand Smoke Exposure: No Smoking Status: Former smoker Tobacco Type: Cigarettes - Alcohol History How Often Do You Have a Drink Containing Alcohol: 2 to 3 times a week - Substance Use History Substance History: No History of Abuse - Travel History [facility] Within the Last 8 Weeks: No Recent Travel Out of the Country Within the Last 8 Weeks: No Medications and Allergies Active Medications: Active Medications Al Hydroxide/Mg Hydroxide (Milk Of Irvin Boucher) 30 ml PO Q12H PRN PRN Reason: Mild Constipation Albuterol (Ventolin Hfa Inh) 1 puff INH Q4H PRN PRN Reason: Shortness Of Breath Amlodipine Besylate (Norvasc) 5 mg PO DAILY [facility] Last Admin: 01/06/18 09:14 Dose: 5 mg Bisacodyl (Dulcolax Supp) 10 mg RECTAL DAILY PRN PRN Reason: SEVERE CONSITIPATION Budesonide/Formoterol Fumarate (Symbicort 160/4.5 Mcg Inh) 2 puff INH DAILY [facility] Last Admin: 01/06/18 09:10 Dose: 2 puff Carvedilol (Coreg) 3.125 mg PO BID [facility] Last Admin: 01/06/18 09:13 Dose: 3.125 mg Chlorhexidine Gluconate (Chlorhexidine 2% Cloth) 3 pack [employer] [facility] Stop: 01/08/18 05:35 Last Admin: 01/05/18 05:30 Dose: 3 pack Famotidine (Pepcid) 20 mg PO BID [facility] Last Admin: 01/06/18 09:11 Dose: 20 mg Hydromorphone HCl (Dilaudid) 4 mg PO Q4H PRN PRN Reason: PAIN 1-10 AND/OR FEVER >101F Last Admin: 01/06/18 13:21 Dose: 4 mg Sodium Chloride (Ns Inj) 500 mls @ 30 mls/hr IV.SIG .Q10H [facility] Stop: 01/08/18 05:35 Isosorbide Mononitrate (Imdur) 60 mg PO DAILY@0700 [facility] Last Admin: 01/06/18 09:14 Dose: 60 mg Lactulose (Lactulose Liq) 30 ml PO DAILY PRN PRN Reason: SEVERE CONSITIPATION Levothyroxine Sodium (Synthroid) 100 mcg PO DAILY@0600 [facility] Last Admin: 01/06/18 09:13 Dose: 100 mcg Lisinopril (Prinivil) 10 mg PO BID [facility] Last Admin: 01/06/18 09:12 Dose: 10 mg Metoprolol Tartrate (Lopressor) 25 mg PO [employer]TING [employer] [facility] Stop: 01/08/18 05:35 Last Admin: 01/05/18 06:41 Dose: Not Given Oxycodone HCl (Roxicodone) 5 mg PO Q4H PRN PRN Reason: PAIN SCALE 1 TO 5 Last Admin: 01/06/18 11:05 Dose: 5 mg Pom: (Enzalutamide [ (Xtandi] 160 Mg)) 0 each PO DAILY [facility] Pom: (Leuprolide (3 Month) [Lupron Depot (3 Month)] 11. 25 Mg) 0 each IM Q30D [facility] Povidone Iodine (Betadine 5% Antisepsis Kit) 1 applicatio EACH [employer]PER[employer] [facility] Stop: 01/08/18 05:35 Last Admin: 01/05/18 06:00 Dose: 1 applicatio Senna/Docusate Sodium (Qi-Colace) 1 tab PO BID [facility] Last Admin: 01/06/18 09:10 Dose: 1 tab Sennosides (Senokot) 17.2 mg PO Q12H PRN PRN Reason: Moderate Constipation Allergies Allergy/AdvReac Type Severity Reaction Status Date / Time atorvastatin Allergy Severe rash Verified 01/05/18 05:57 Sulfa (Sulfonamide Allergy Severe Rash Verified 01/05/18 05:57 Antibiotics) aspirin Allergy Unknown Abdominal Verified 01/05/18 05:57 Pain prednisone Allergy Unknown Muscle Pain Verified 01/05/18 05:57 rosuvastatin AdvReac Severe Muscle Pain Verified 01/05/18 05:57 Home Medications Medication Instructions Recorded Confirmed Type enzalutamide [Xtandi] 160 mg PO DAILY 12/04/17 01/05/18 History hydromorphone [Dilaudid] 2 mg PO Q4-6H PRN 12/04/17 01/05/18 History omeprazole 20 mg PO DAILY PRN 12/04/17 01/05/18 History albuterol sulfate [ProAir HFA] 1 puff INHALATION Q4-6H PRN 12/16/17 01/05/18 History budesonide-formoterol [Symbicort] 2 puff INHALATION DAILY 12/16/17 01/05/18 History lisinopril 10 mg PO BID 12/16/17 01/05/18 History leuprolide (3 month) [Lupron Depot 11.25 mg IM [id number] 01/02/18 01/05/18 History (3 month)] Physical Exam Vital signs: Vital Signs 01/05/18 19:00 01/05/18 20:00 01/05/18 21:00 Temperature 97.8 F Pulse Rate 54 L 60 58 L Respiratory Rate 18 18 Blood Pressure 120/62 Pulse Oximetry 97 01/05/18 22:00 01/05/18 23:00 01/06/18 00:00 Temperature 98 F Pulse Rate 62 61 58 L Respiratory Rate 18 Blood Pressure 130/60 Pulse Oximetry 97 01/06/18 01:00 01/06/18 02:00 01/06/18 03:00 Temperature 97.8 F Pulse Rate 58 L 60 63 Respiratory Rate 18 Blood Pressure 131/60 Pulse Oximetry 97 01/06/18 04:00 01/06/18 05:00 01/06/18 06:00 Temperature Pulse Rate 60 68 66 Respiratory Rate Blood Pressure Pulse Oximetry 01/06/18 07:00 01/06/18 08:00 01/06/18 09:00 Temperature 98.6 F Pulse Rate 69 72 74 Respiratory Rate 18 Blood Pressure 140/63 Pulse Oximetry 96 01/06/18 10:00 01/06/18 11:00 01/06/18 12:00 Temperature 98.4 F Pulse Rate 78 72 76 Respiratory Rate 18 Blood Pressure 127/62 Pulse Oximetry 96 01/06/18 13:00 01/06/18 14:00 01/06/18 15:00 Temperature 98.3 F Pulse Rate 74 71 74 Respiratory Rate 18 Blood Pressure 132/64 Pulse Oximetry 97 01/06/18 16:00 01/06/18 17:00 01/06/18 18:00 Temperature Pulse Rate 77 78 78 Respiratory Rate Blood Pressure Pulse Oximetry Intake & Output 01/05/18 01/06/18 01/06/18 18:59 06:59 18:59 Intake Total 3260 / 3260 420 / 420 975 / 975 Output Total 760 / 760 400 / 400 500 / 500 Balance 2500 / 2500 20 / 20 475 / 475 Weight 94.2 kg Intake: IV 1050 / 1050 Heparin/NS PF Inj 500 ML @ 0 0 / 0 mls/hr .ROUTE .STK-MED ONE Rx#: [id number] LR 1000 mL Inj 1,000 ML @ 30 1000 / 1000 mls/hr IV.SIG .Q24H [facility] Rx#: [id number] Ancef 2 GM Premix Inj 2 gm In 50 / 50 50 ml @ 0 mls/hr IV.SIG .STK- MED ONE Rx#:[id number] Oral 410 / 410 420 / 420 975 / 975 Anesthesia Amount 1800 / 1800 Output: Urine 100 / 100 Estimated Blood Loss 200 / 200 Urine Amount (Catheter) 460 / 460 400 / 400 500 / 500 Indwelling Urethral Catheter 460 / 460 400 / 400 500 / 500 Other: Mode Setting Right Groin Continuous # Bowel Movements 1 - Constitutional no acute distress Comments: Elderly male, sitting up in bed, somewhat anxious but not acutely distressed. - Routine HEENT Exam Head: Present: normocephalic Eye: Present: EOMI, PERRL - Routine Neck Exam Present: supple, full ROM - Routine Respiratory Exam Present: CTA bilaterally. Absent: accessory muscle use, rhonchi, stridor, wheezes, crackles, distant breath sounds - Routine Cardiovascular Exam Present: RRR, S1, S2. Absent: murmur, gallop, S3, S4 - Routine Abdominal Exam Present: soft. Absent: normoactive bowel sounds, tenderness, distended - Routine Extremities Exam Absent: cyanosis, clubbing Comments: Wound VAC noted over the right groin area. Skin is cool to the touch. Peripheral pulses are palpable (bilateral lower extremities). - Routine Skin Exam Present: intact - Routine Neurological Exam Present: alert, oriented X3, CN II-XII intact - Routine Psychiatric Exam Present: normal affect - Urinary Catheter Management Indwelling Urethral Catheter Cath placed during this visit: yes Urethral indwelling: No Reason for continuing: Other continuation reason Insertion date: 01/05/18 Insertion time: 08:38 Assessment and Plan - Plan Mr. Balderrama is a very pleasant 72-year-old man with a diagnosis of metastatic carcinoma of the prostate with extensive bony metastases. Presently on systemic therapy with a combination of Lupron and Xtandi with good biochemical response. He has been on this combination for slightly over 1 year. Prior to this the patient had been treated with various lines of androgen deprivation therapy as well as systemic chemotherapy with only transient response. Patient has had a extensive past history of tobaccoism and unfortunately has significant arterial sclerotic arterial disease including coronary artery disease and peripheral arterial disease. He presented to this hospital for surgical revascularization of the right lower extremity. The month prior he was hospitalized with unstable angina like chest pain and was found to have had severe occlusion of the right coronary artery circulation which was managed medically. Postoperatively, the patient was advised initiation of Plavix. Plavix has significant interaction with Xtandi and has therefore been discontinued. The patient reports previously having been on aspirin which resulted in gastric ulceration. Recommendations: 1. Prostate carcinoma: Resume Xtandi at the time of discharge. 2. Peripheral arterial disease/coronary artery disease: It would seem reasonable to rechallenge this man with an antiplatelet agent such as aspirin ( preferably enteric-coated aspirin). I think it would be reasonable to rechallenge him with aspirin with an oral proton pump inhibitor or an H2 gianfranco as secondary prophylaxis for peptic ulcer disease. Patient is presently on famotidine 20 mg twice daily. Thank you for asking me to see this patient.
[2018-01-07] MEDS: Isosorbide Mononitrate 30 MG ER 24HR Tablet (Imdur) PO SCH (06:48)
[2018-01-07] MEDS: Lisinopril 10 MG Tablet PO SCH (08:08)
[2018-01-07] MEDS: Budesonide-Formoterol 160/4.5 MCG 6 GM Inhaler INH SCH (08:08)
[2018-01-07] MEDS: Famotidine 20 MG Tablet PO SCH (08:08)
[2018-01-07] MEDS: amLODIPine 5 MG Tablet PO SCH (08:09)
[2018-01-07] MEDS: Senna/Docusate Sodium 8.6/50 MG Tablet PO SCH (08:09)
[2018-01-07] MEDS: Levothyroxine 100 MCG Tablet PO SCH (08:09)
--- NOTE | 2018-01-07 10:00 | P.DS ---
Discharge Summary - Admission Date 01/05/18 05:14 - Admission Diagnosis (1) PAD (peripheral artery disease) - Discharge Diagnosis (1) PAD (peripheral artery disease) Status: Chronic - Summary Brief History from admission: 72 yo male with B LE leg pain, worse with walking. No rest pain. CTA shows multilevel disease. Procedure: R ilioprofunda bypass/R PATHOLOGY TRANSCRIPTIONIST-SFA bypass/B CATY orbital atherectomy/R CATY CRM DEVELOPER/ Significant Findings: 72/M alert in NAD Pt s/o LE revascularization B LE warm with distal pulses present Wound vac in place to R groin w/o hematoma or swelling palpable B DP 2+ Hospital Course: 72 yo male with a hx of B LE leg pain, worse with walking. No rest pain. CTA shows multilevel disease Pt s/p R ilioprofunda bypass/R PATHOLOGY TRANSCRIPTIONIST-SFA bypass/B CATY orbital atherectomy/R CATY CRM DEVELOPER/L CATY CRM DEVELOPER/stent/Aortogram Pt doing well LE warm w/ motor intact Palpable R/L DP 2+ Right groin wound vac intact w/o hematoma or swelling Pt clear for d/c with wound vac in place Will remove in our out pt clinic on 01/12/18 E ricky reviewed- Pain Rx written for post operative pain management - Discharge Instructions Any questions or concerns: Call [facility] [phone] Discharge Plan - Discharge Disposition Patient Disposition: 01 Discharge Home - Discharge Condition Condition: Good - Discharge Order Discharge Orders: Discharge Order (Routine); Ordered 01/07/18 Ordered By: Milka Vera - Physicians Team Primary Care Provider: Kian Alonzo Attending Provider: Spenser Franco Other Providers: Norbert Alvarez MD - Rxs /Orders / Referrals /Forms Prescriptions: New aspirin 325 mg Tablet,Delayed Release (Dr/Ec) 325 mg PO DAILY 30 Days Qty: 30 RF: 0 Continue albuterol sulfate [ProAir HFA] 90 mcg/actuation HFA aerosol inhaler 1 puff INHALATION Q4-6H PRN (Reason: Shortness Of Breath) amlodipine [Norvasc] 5 mg Tablet 5 mg PO DAILY Qty: 30 RF: 0 budesonide-formoterol [Symbicort] 160-4.5 mcg/actuation HFA aerosol inhaler 2 puff INHALATION DAILY carvedilol [Coreg] 3.125 mg Tablet 3.125 mg PO BID Qty: 60 RF: 0 enzalutamide [Xtandi] 40 mg Capsule 160 mg PO DAILY hydromorphone [Dilaudid] 2 mg Tablet 2 mg PO Q4-6H PRN (Reason: Acute Pain) 7 Days Qty: 30 RF: 0 isosorbide mononitrate 30 mg Tablet Extended Release 24 Hr 60 mg PO DAILY Qty: 60 RF: 0 leuprolide (3 month) [Lupron Depot (3 month)] 11.25 mg Syringe Kit 11.25 mg IM [id number] levothyroxine [Synthroid] 100 mcg Tablet 100 mcg PO DAILY@0600 Qty: 30 RF: 0 lisinopril 10 mg tablet 10 mg PO BID omeprazole 20 mg Capsule,Delayed Release(Dr/Ec) 20 mg PO DAILY PRN (Reason: Heartburn) Referrals: Kian Alonzo MD [Primary Care Provider] - See Instructions Spenser Franco MD [Physician] - See Instructions (Your Post op follow up and wound vac removal is scheduled on 01/12/18 at 11:00) - Discharge Instructions Patient Printed Instructions: Peripheral Vascular Disease (GEN), Angiogram (DC) - Post Discharge Care Plan Care Plan Goals: Discharge Care Plan Goals for Peripheral Vascular Disease Directions to Meet your Goals: 1. Pain Relief: You will recover faster after surgery if your pain is kept under control: * Take pain medicine as directed by your doctor. * Tell your doctor if you have questions about what youre feeling, if your medicines dont reduce your pain, or if you suddenly feel worse. 2. Activity: * Dont drive until your doctor says its OK. And never drive while taking opioid pain medicine. * Ask someone to stand nearby while you shower or do other activities, just in case you need help. 3. Diet and Exercise: * Maintain a healthy weight. If needed, get help to loose extra pounds. * Avoid fatty and fried foods. Stick to lean meats, such as chicken or fish. * Cut back on salt: - Limit canned, dried, packaged, and fast foods. - Dont add salt to your food at the table. - Season foods with herbs instead of salt when you cook * Ask your healthcare provider when you can start a walking program: - If you havent already started a walking program in the hospital, begin with short walks (about 5 minutes) at home. Go a little longer each day. - Choose a safe place with a level surface, such as a local park or mall. - Wear supportive shoes to prevent injury to your knees and ankles. - Walk with someone. Its more fun and helps you stay with it. 4. Prevent Falls/Injury: * If you are unstable on your feet, remember to ask for help from others. * Avoid using very hot water while showering. It can affect your circulation and make you dizzy. * Free up your hands so that you can use them to keep balance. Use a kirill pack , apron, or pockets to carry things. * Arrange your household to keep the items you need handy. Keep everything else out of the way. * Remove items that may cause you to fall, such as throw rugs and electrical cords. * Use nonslip bath mats, grab bars, an elevated toilet seat, and a shower chair in your bathroom * Sit on a shower stool or chair when you shower to keep from falling. 5. Incision Care: Healing takes several weeks. * Check your incision daily for redness, swelling, tenderness, or drainage. * Prevent infection by washing your hands often. If an infection occurs, it will need to be treated right away. * Call your doctor right away if you think you may have an infection. Symptoms include a fever or an incision that leaks white, green, or yellow fluid. * Don't soak your incision in water until your doctor says its OK. This means no hot tubs, bathtubs, or swimming pools. * Follow your doctor's instructions for changing the dressing. * Dont rub the incision, or apply creams or lotions to it. 6. Follow-Up: Do Not miss your follow-up appointment. Keep up with all your appointments and yearly check ups When to call your doctor: Call your doctor right away if you have: Fever of 100.4F (38C) or higher, or as directed by your doctor Signs of infection (redness, swelling, drainage, or warmth) at the incision site Unrelieved pain at the incision site(s) Changes in the location, type, or severity of pain
--- NOTE | 2018-01-07 10:05 | P.PNVS ---
Subjective Post Op Day #: 2 Procedure: R ilioprofunda bypass/R EMBROIDERY SPECIALIST-SFA bypass/B CATY orbital atherectomy/R CATY CAST IRON DIPPER/ Subjective/Hospital Course: 72/M sitting in chair this am w/o complaints Pain controlled Pt endorsed mild RIGHT groin discomfort B LE warm w/ motor intact Pt voided this am w/o difficulty + BM kerry po Objective Vital Signs / I&O: Vital Signs 01/06/18 11:00 01/06/18 12:00 01/06/18 13:00 Temperature 98.4 F Pulse Rate 72 76 74 Respiratory Rate 18 Blood Pressure 127/62 Pulse Oximetry 96 01/06/18 14:00 01/06/18 15:00 01/06/18 16:00 Temperature 98.3 F Pulse Rate 71 74 77 Respiratory Rate 18 Blood Pressure 132/64 Pulse Oximetry 97 01/06/18 17:00 01/06/18 18:00 01/06/18 19:00 Temperature Pulse Rate 78 78 72 Respiratory Rate 18 Blood Pressure Pulse Oximetry 01/06/18 20:00 01/06/18 21:00 01/06/18 22:00 Temperature 99.9 F H Pulse Rate 72 66 70 Respiratory Rate 18 Blood Pressure 129/59 L Pulse Oximetry 96 01/06/18 23:00 01/07/18 00:00 01/07/18 01:00 Temperature 99.0 F Pulse Rate 62 77 64 Respiratory Rate 18 18 Blood Pressure 141/65 H Pulse Oximetry 96 01/07/18 02:00 01/07/18 03:00 01/07/18 03:30 Temperature 98.7 F Pulse Rate 65 70 74 Respiratory Rate 18 18 Blood Pressure 162/73 H Pulse Oximetry 96 01/07/18 04:00 01/07/18 05:00 01/07/18 06:00 Temperature Pulse Rate 74 73 80 Respiratory Rate Blood Pressure Pulse Oximetry 01/07/18 07:00 01/07/18 08:00 01/07/18 08:40 Temperature 98.2 F Pulse Rate 76 76 Respiratory Rate 18 18 Blood Pressure 142/65 H Pulse Oximetry 95 01/07/18 09:00 01/07/18 09:35 Temperature Pulse Rate 75 74 Respiratory Rate Blood Pressure Pulse Oximetry Intake & Output 01/06/18 01/07/18 01/07/18 18:59 06:59 18:59 Intake Total 975 / 975 420 / 420 Output Total 500 / 500 775 / 775 Balance 475 / 475 -355 / -355 Weight 93.5 kg Intake: Oral 975 / 975 420 / 420 Output: Urine 775 / 775 Urine Amount (Catheter) 500 / 500 Indwelling Urethral Catheter 500 / 500 Other: Mode Setting Right Groin Continuous Continuous # Bowel Movements 1 Exam: LE warm Palpable distal pulses present Resp even and CTA RRR Wound vac to r groin intact w/o hematoma or swelling Assessment and Plan - Plan POD#2 s/p R groin reconstruction, B CATY orbital atherectomy and L CATY stent Pt Looks great with palpable DP 2+ Plan Keep wound vac to right groin - Will remove in our out pt clinic on 01/12/18 Pt clear for d/c Arranged out pt f/u Discussed and reviewed d/c instructions w/ pt and Milka Vera [employer] [facility] [phone] Discharge Planning: Likely Sat (POD#2) to home
== END 2018-01-07 10:50 | disposition home or self-care (01) ==
LOC: HSDI 05:14 → HCPC 14:38
PROVIDERS: ADMIT Surgery; ATTEND Surgery
PROC: ANGIOLE (2018-01-05 08:27)